=== PATIENT | female | born 2005 | race Hispanic/Latino ===

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

== ENCOUNTER 2025-02-01 12:28 | Emergency (ER) | payer OTHER ==
--- OUTSIDE RECORDS SUMMARY | 2025-02-01 12:38 | XMS REPORT | Continuity of Care Document ---
Author Name Unknown Address [address] [facility] [address] [place] [address] Organization [facility] [place] Address [address] [facility] [address] [place] [address] Care Team Providers Care Trap Operator Name Role Phone MARYURIMARCIN Naila Primary Care Physician Denia vailable Christopher Ibarra Attending Clinician [phone] CHRISTOPHER HUGHES Attending Clinician Unavailable CHRISTOPHER HUGHES Attending Clinician Unavailable EHSAN LIRA Attending Clinician Unavailable Ehsan Díaz Attending Clinician [phone] YOLANDA YATES Attending Clinician Unavailab EDDIE Moncada Attending Clinician Unavailable Eddie Velazquez MD Attending Clinician [phone] Sherman Penn Attending Clinician [phone] SHERMAN MYERS Attending Clinician Unavailable ADRIAN MANCIA Attending Clinician Unavailable EHSAN LIRA Admitting Clinician Unavailable YOLANDA YATES Admitting Clinician Unavailab EDDIE Moncada Admitting Clinician Unavailable Payers Payer Name Policy Type Policy Number Effective Date Expirati on Date Source [employer] D [id number] 2019 00:00:00 Problems Condition Name Condition Details Condition Category Status Onset Date Resolution Date Last Treatment Date Treating Clinician Comments Source Hand sprain, right, initial encounter Hand sprain, right, initial encounter Disease Active 05-23 00:00: 00 [facility] Cellulitis of right hand Cellulitis of right hand Disease Active 05-23 00:00: 00 [facility] Abrasion of right hand, initial encounter Abrasion of right hand, initial encounter Disease Active 05-23 00:00: 00 [facility] Left wrist pain Left wrist pain Disease Active 01-12 00:00: 00 [facility] Allergies, Adverse Reactions, Alerts Allergy Name Allergy Type Status Severity Reaction(s) Onset Date Inactive Date Treating Clinician Comments Source NO KNOWN ALLERGIE S Drug Class Active [facility] Social History Social Habit Start Date Stop Date Quantity Comments Source [facility] function 2024-05-24 00:00:00 2024-05-24 00:00:00 [facility] Alcoholic beverage intake 2024-05-24 00:00:00 2024-05-24 00:00:00 0 /d [facility] Alcohol intake 2023-12-03 00:00:00 2023-12-03 00:00:00 0 /d [facility] Exposure to SARS-CoV-2 (event) 2022-10-03 00:00:00 2022-10-13 15:50:00 Not sure [facility] Sex assigned at 2005 00:00:00 2005 00:00:00 [facility] Smoking Status Start Date Stop Date Source Never smoked tobacco [facility] Medications Ordered Medication Name Filled Medication Name Start Date Stop Date Current Medication? Ordering Clinician Indication Dosage Frequency Signature (SIG) Comments Components Source NaCl 0.9% (NS) bolus infusion 1,000 mL 2023-11 16:30: 00 09-18 17:50 :00 No 1000mL at 999 mL/hr, 1,000 mL, IV Infusion, ONCE, 1 dose, On 09/18/24 at 1030, SALLIE [facility] haloperidol lactate (HALDOL) injection 2.5 mg 2023-11 16:30: 00 09-18 16:50 :00 No 2.5mg 2.5 mg, Slow IV Push, ONCE, 1 dose, On 09/18/24 at 1030, [facility] proMETHazin e 25 mg suppository 2023-11 00:00: 00 Yes [id number] 25mg Insert 1 Suppositor y into rectum every 6 (six) hours as needed for Nausea and Vomiting (N/V). [facility] iopamidol (ISOVUE 370-500 mL) injection 60 mL 2023-11 08:00: 00 09-17 08:00 :00 No [id number] 60mL 60 mL, Intravenou s, ONCE, 1 dose, On 09/17/24 at 0200, Routine [facility] dicyclomine (BENTYL) injection 20 mg 2023-11 05:00: 00 09-17 03:53 :00 No 20mg 20 mg, Intramuscu lar, ONCE, 1 dose, On 09/16/24 at 2300, [facility] famotidine (PEPCID (PF)) injection 20 mg 2023-11 04:00: 00 09-17 03:53 :00 No 20mg 20 mg, Slow IV Push, ONCE, 1 dose, On 09/16/24 at 2200, [facility] metoclopram joao HCl (REGLAN) injection 10 mg 2023-11 04:00: 00 09-17 03:53 :00 No 10mg 10 mg, Slow IV Push, ONCE, 1 dose, On 09/16/24 at 2200, [facility] ketorolac (TORADOL) injection 15 mg 2023-11 04:00: 00 09-17 03:53 :00 No 15mg 15 mg, Slow IV Push, ONCE, 1 dose, On 09/16/24 at 2200, [facility] ondansetron 4 mg disintegrat ing tablet 2023-11 00:00: 00 Yes [id number] 4mg Take 1 tablet by mouth every 8 (eight) hours as needed for Nausea and Vomiting (N/V). [facility] dicyclomine 20 mg tablet 2023-11 1-10 00:00: 00 Yes [id number] 20mg Take 1 tablet by mouth 4 (four) times daily as needed for Abdominal pain. [facility] trazodone 50 mg tablet 2023-11 0-13 00:00: 00 Yes 1mg Ye Mcneil Nexplanon 68 mg subdermal implant 2023-11 0- 00:00: 00 Yes 1mg Ye Mcneil buspirone 5 mg tablet 918 00:00: 00 Yes 1mg Ye Mcneil Vraylar 4.5 mg capsule 18 00:00: 00 Yes 1mg Ye Mcneil trazodone 50 mg tablet 8 00:00: 00 Yes 1mg Ye Mcneil buspirone 5 mg tablet 8- 00:00: 00 Yes 1mg Ye Mcneil Vraylar 4.5 mg capsule 8 00:00: 00 Yes 1mg Ye Mcneil cefTRIAXone (ROCEPHIN) 350 mg/mL in Lidocaine 1 % injection 1,000 mg 05-24 01:30: 00 05-24 01:30 :00 No 1000mg 1,000 mg, Intramuscu lar, ONCE, 1 dose, On Wed05/23/24 at 2030, SALLIE, Reason for Anti-Infec tive: Documented Infection, Documented Infection Site: Skin / Soft Tissue, Duration of Therapy: Once (ED) [facility] ibuprofen (IBU) tablet 400 mg 05-23 23:00: 00 05-23 23:03 :00 No 400mg 400 mg, Oral, ONCE, 1 dose, On Wed05/23/24 at 1800, SALLIE [facility] amoxicillin -clavulanat e 875-125 mg per tablet 05-23 00:00: 00 06-03 04:59 :00 No [id number] 1{tbl} Take 1 tablet by mouth every 12 (twelve) hours for 10 days. [facility] cephALEXin 500 mg capsule 7-16 00:00: 00 05-23 00:00 :00 No [id number] 500mg Take 1 capsule by mouth 4 (four) times daily. [facility] buspirone 5 mg tablet 6-05 00:00: 00 Yes 1mg Ye Mcneil Vraylar 4.5 mg capsule 6-05 00:00: 00 Yes 1mg Ye Mcneil Vraylar 3 mg capsule 5-08 00:00: 00 Yes mg Ye Mcneil Vraylar 3 mg capsule 3-18 00:00: 00 Yes mg Ye Mcneil iopamidol (ISOVUE 370-500 mL) injection 70 mL 12-03 16:30: 00 12-03 16:30 :00 No [id number] 70mL 70 mL, Intravenou s, ONCE, 1 dose, On Wed12/03/23 at 1030, Routine [facility] haloperidol lactate (HALDOL) injection 2.5 mg 12-03 15:00: 00 12-03 15:09 :00 No 2.5mg 2.5 mg, Intravenou s, ONCE, 1 dose, On Wed12/03/23 at 0900, STAT [facility] morpHINE (2 mg/mL) injection 2 mg 12-03 15:00: 00 12-03 15:09 :00 No 2mg 2 mg, Slow IV Push, ONCE, 1 dose, On Wed12/03/23 at 0900, STAT [facility] proCHLORper azine (COMPAZINE) 10 mg in NaCl 0.9% (NS) piggyback 12-03 14:30: 00 12-03 14:53 :00 No 10mg 10 mg, IV Piggyback, at 100 mL/hr Administer over 30 Minutes, ONCE, 1 dose, On Wed12/03/23 at 0830, SALLIE [facility] ketorolac (TORADOL) injection 15 mg 12-03 14:30: 00 12-03 13:38 :00 No 15mg 15 mg, Slow IV Push, ONCE, 1 dose, On Wed12/03/23 at 0830, [facility] ondansetron (ZOFRAN (PF)) injection 4 mg 12-03 14:30: 00 12-03 13:38 :00 No 4mg 4 mg, Slow IV Push, ONCE, 1 dose, On Wed12/03/23 at 0830, [facility] NaCl 0.9% (NS) bolus infusion 1,000 mL 12-03 14:15: 00 12-03 14:53 :00 No 1000mL at 999 mL/hr, 1,000 mL, IV Infusion, ONCE, 1 dose, On Wed12/03/23 at 0815, [facility] ondansetron 4 mg disintegrat ing tablet 12-03 00:00: 00 Yes [id number] 4mg Take 1 tablet by mouth every 8 (eight) hours as needed for Nausea and Vomiting (N/V). [facility] DISSOLVE 1 TABLET BY MOUTH EVERY [...] TAKE 1 CAPSULE BY MOUTH ONCE DAILY 30 00:00: 00 03-21 00:00 :00 No 15 Ye Mcneil TAKE 1 CAPSULE BY MOUTH ONCE DAILY 18 00:00: 00 03-21 00:00 :00 No 15 Ye Mcneil TAKE 1 TABLET AT BEDTIME. 18 00:00: 00 03-21 00:00 :00 No 50 Ye Mcneil TRAZODONE 100MG 2021-11 00:00: 00 Yes 100 Ye Mcneil TAKE 1 TABLET AT BEDTIME. 2021-11 00:00: 00 03-21 00:00 :00 No 5 Ye Mcneil TAKE 1 TABLET BY MOUTH DAILY 2021-11 00:00: 00 03-21 00:00 :00 No 20 Ye Mcneil TRAZODONE 150MG TAB 2021-11 00:00: 00 Yes Ye Mcneil DEPO-CAR SANDER A CONTRACEPTI V 150MG/ML SYN 2021-11 00:00: [...] Unknown 2021-11 00:00: 00 Yes Ye Mcneil AZITHROMYCI N 250MG TAB 2021-11 00:00: 00 Yes Ye Mcneil ESCITALOPRA M OXALATE 10MG TAB 2021-11 00:00: 00 Yes Ye Mcneil ONDANSETRON ODT 8MG ODT 2021-11 00:00: 00 Yes Ye Mcneil Dose Unknown 2021-11 00:00: 00 Yes Ye Mcneil TAKE 1 TABLET BY MOUTH TWICE A DAY 2021-11 00:00: 00 Yes Ye Mcneil Dose Unknown 2021-11 00:00: 00 Yes Ye Mcneil Dose Unknown 2021-11 00:00: 00 Yes Ye Mcneil TAKE 2 TABLETS AT BEDTIME. 2021-11 00:00: 00 03-21 00:00 :00 No Ye Mcneil ESCITALOPRA M 10MG 2021-11 2- 00:00: 00 Yes [id number] Ye Mcneil LORazepam (ATIVAN) tablet 2 mg 2021-11 23:15: 00 10-13 23:11 :00 No 2mg 2 mg, Oral, ONCE, 1 dose, On Wed10/13/22 at 1715, SALLIE [facility] TAKE 1 CAPSULE BY MOUTH EVERYDAY AT BEDTIME 2021-11 00:00: 00 Yes Ye Mcneil TAKE 1 TABLET BY MOUTH EVERYDAY AT BEDTIME 2021-11 00:00: 00 Yes 5 Ye Mcneil ESCITALOPRA M 10MG TAB 2021-11 1-30 00:00: 00 Yes Ye Mcneil ESCITALOPRA M OXALATE 5MG TAB 0 - 00:00: 00 Yes Ye Mcneil TRAZODONE HYDROCHLORI DE 150MG TAB 0 9-20 00:00: 00 Yes Ye Mcneil TRAZODONE HYDROCHLORI DE 150MG 2021-0 9- 00:00: 00 Yes [id number] Ye Mcneil &lt 2-0 8-12 00:00: 00 Yes 150 Ye Mcneil &lt 2-0 8-12 00:00: 00 Yes 5 Ye Mcneil &lt 2-0 8-12 00:00: 00 No 150 &lt 2022-0 8-12 00:00: 00 No 5 TAKE 1 TABLET AT BEDTIME. 0 - 00:00: 00 Yes 150 Ye Mcneil TAKE 1 TABLET BY MOUTH TWICE A DAY 0 - 00:00: 00 Yes 20 Ye Mcneil TAKE 6 TABLETS ON DAY 1 DIRECTED ON PACKAGE AND DECREASE BY 1 TAB EACH DAY FOR A TOTAL OF 6 DAYS 2021-0 - 00:00: 00 Yes 4 Ye Mcneil &lt 2022-0 8- 00:00: 00 Yes 50 Ye Mcneil &lt 2022-0 8- 00:00: 00 Yes 150 Ye Mcneil TAKE 1 TABLET AT BEDTIME. 2021-0 8- 00:00: 00 No 150 TAKE 1 TABLET BY MOUTH TWICE A DAY 2021-0 8- 00:00: 00 No 20 TAKE 6 TABLETS ON DAY 1 DIRECTED ON PACKAGE AND DECREASE BY 1 TAB EACH DAY FOR A TOTAL OF 6 DAYS 0 8- 00:00: 00 No 4 &lt 2022-0 8- 00:00: 00 No 50 &lt 2022-0 8- 00:00: 00 No 150 TAKE 1 TABLET AT BEDTIME. 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 2022-0 7- 00:00: 00 Yes 10 Ye F Tarun &lt 2022-0 7- 00:00: 00 Yes 50 Ye Mcneil TAKE 1 AND 1/2 TABLETS DAILY. 2021-0 05-29 00:00: 00 No 10 &lt 2-0 05-29 00:00: 00 No 50 TAKE 1 AND 1/2 TABLETS DAILY. 2021-0 05-29 00:00: 00 No 10 &lt 2-0 05-29 00:00: 00 No 50 escitalopra m 10 mg tablet 2021-0 05-04 00:00: 00 Yes 1mg Ye Mcneil Dose Unknown 2021-0 05-04 00:00: 00 Yes Ye Mcneil escitalopra [...] 04-02 00:00: 00 Yes 1mg Ye Mcneil trazodone 150 mg tablet 2021-0 04-02 00:00: 00 Yes 1mg Ye Mcneil Dose Unknown 0 04-02 00:00: 00 Yes Ye Mcneil escitalopra [...] No 1mg trazodone 150 mg tablet 2021-0 5-26 00:00: 00 No 1mg Dose Unknown 2021-0 04-02 00:00: 00 No Dose Unknown 2021-0 -17 00:00: 00 Yes Ye Mcneil Dose Unknown 2021-0 -17 00:00: 00 Yes Ye Mcneil naproxen 500 mg tablet 2021-0 5-17 00:00: 00 No 1mg ondansetron HCl 4 mg tablet 2-0 5-17 00:00: 00 No 1mg naproxen 500 mg tablet 2-0 517 00:00: 00 No 1mg ondansetron HCl 4 mg tablet 2021-0 17 00:00: 00 No 1mg naproxen 500 mg tablet 2021-0 17 00:00: 00 No 1mg ondansetron HCl 4 mg tablet 2021-0 03-24 00:00: 00 No 1mg escitalopra m 10 mg tablet 2-0 - 00:00: 00 Yes 1mg Ye Mcneil trazodone 150 mg tablet 2-0 4-29 00:00: 00 Yes 1mg Ye Mcneil escitalopra m 10 mg tablet 2021-0 -29 00:00: 00 No 1mg trazodone 150 mg tablet 2-0 -29 00:00: 00 No 1mg escitalopra m 10 mg tablet 2021-0 -29 00:00: 00 No 1mg trazodone 150 mg tablet 2-0 4-29 00:00: 00 No 1mg escitalopra m 10 mg tablet 2-0 4-29 00:00: 00 No 1mg trazodone 150 mg tablet 2-0 4-29 00:00: 00 No 1mg [employer] Engineer a 150 mg/mL intramuscul ar syringe 2-0 4-18 00:00: 00 Yes 1mg/mL Ye Mcneil [employer] Development Engineer a 150 mg/mL intramuscul ar syringe 2-0 4-18 00:00: 00 No 1mg/mL [employer] Development Engineer a 150 mg/mL intramuscul ar syringe 2-0 4-18 00:00: 00 No 1mg/mL [employer] Development Engineer a 150 mg/mL intramuscul ar syringe 2022-0 4-18 00:00: 00 No 1mg/mL escitalopra m 5 mg tablet 2022-0 4-04 00:00: 00 Yes 1mg Ye Mcneil Dose Unknown 2022-0 4-04 00:00: 00 Yes Ye Mcneil escitalopra m 5 mg tablet 2022-0 4-04 00:00: 00 No 1mg Dose Unknown 2022-0 4-04 00:00: 00 No escitalopra m 5 mg tablet 2022-0 4-04 00:00: 00 No 1mg Dose Unknown 2022-0 4-04 00:00: 00 No escitalopra m 5 mg tablet 2022-0 4-04 00:00: 00 No 1mg Dose Unknown 2022-0 4-04 00:00: 00 No escitalopra m 5 mg tablet 2-0 3-04 00:00: 00 Yes 1mg Ye Mcneil trazodone 150 mg tablet 2-0 3-04 00:00: 00 Yes 1mg Ye Mcneil Dose Unknown 2022-0 3-04 00:00: 00 Yes Ye Mcneil Dose Unknown 2022-0 3-04 00:00: 00 Yes Ye Mcneil escitalopra m 5 mg tablet 2-0 3-04 00:00: 00 No 1mg trazodone 150 mg tablet 2-0 3-04 00:00: 00 No 1mg Dose Unknown 2022-0 3-04 00:00: 00 No Dose Unknown 2022-0 3-04 00:00: 00 No escitalopra m 5 mg tablet 2-0 3-04 00:00: 00 No 1mg trazodone 150 mg tablet 2-0 3-04 00:00: 00 No 1mg Dose Unknown 2-0 3-04 00:00: 00 No Dose Unknown 2022-0 3-04 00:00: 00 No escitalopra m 5 mg tablet 2022-0 3-04 00:00: 00 No 1mg trazodone 150 mg tablet 2022-0 3-04 00:00: 00 No 1mg Dose Unknown 2022-0 3-04 00:00: 00 No Dose Unknown 2022-0 3-04 00:00: 00 No Dose Unknown 2022-0 2-09 00:00: 00 Yes Ye Mcneil Dose Unknown 0 2- 00:00: 00 Yes Ye Mcneil Dose Unknown 0 2- 00:00: 00 No Dose Unknown 0 2- 00:00: 00 No Dose Unknown 0 2- 00:00: 00 No Dose Unknown 0 2- 00:00: 00 No Dose Unknown 0 2- 00:00: 00 No Dose Unknown 0 2- 00:00: 00 No escitalopra m 5 mg tablet 2021-0 1-11 00:00: 00 Yes 1mg Ye Mcneil trazodone 150 mg tablet 2021-0 1-11 00:00: 00 Yes 1mg Ye Mcneil escitalopra m 5 mg tablet 0 1-11 00:00: 00 No 1mg trazodone 150 mg tablet 2021-0 1-11 00:00: 00 No 1mg escitalopra m 5 mg tablet 2021-0 1-11 00:00: 00 No 1mg trazodone 150 mg tablet 2021-0 1-11 00:00: 00 No 1mg escitalopra m 5 mg tablet 2021-0 1-11 00:00: 00 No 1mg trazodone 150 mg tablet 2021-0 1-11 00:00: 00 No 1mg trazodone 150 mg tablet 2020-1 2-20 00:00: 00 Yes 1mg Ye Mcneil trazodone 150 mg tablet 2020-1 2-20 00:00: 00 No 1mg trazodone 150 mg tablet 1 2-20 00:00: 00 No 1mg trazodone 150 mg tablet 1 2-20 00:00: 00 No 1mg escitalopra m 5 mg tablet 1 2-17 00:00: 00 Yes 1mg Ye Mcneil trazodone 100 mg tablet 1 2-17 00:00: 00 Yes 1mg Ye Mcneil trazodone 50 mg tablet 1 2-17 00:00: 00 Yes 1mg Ye Mcneil escitalopra m 5 mg tablet 2020-11 2-17 00:00: 00 No 1mg trazodone 100 mg [...] 00 No 1mg Zoloft 100 mg tablet - 00:00: 00 Yes 15mg Ye Mcneil carbamazepi ne ER 100 mg tablet,exte nded release,12 hr - 00:00: 00 Yes 1mg Ye Mcneil naltrexone 50 mg tablet 11-22 00:00: 00 Yes 1mg Ye Mcneil clonidine HCl 0.2 mg tablet 11-22 00:00: 00 Yes 1mg Ye Mcneil prazosin 1 mg capsule 11-22 00:00: 00 Yes 1mg Ye Mcneil Zoloft 100 mg tablet 11-22 00:00: 00 No 15mg carbamazepi ne ER 100 mg tablet,exte nded release,12 hr 11-22 00:00: 00 No 1mg naltrexone 50 mg [...] 00 No 1mg Zoloft 100 mg tablet - 00:00: 00 No 15mg carbamazepi ne ER [...] tablet,exte nded release,12 hr 2019-11 00:00: 00 Yes 1mg Ye Mcneil naltrexone 50 mg tablet 2019-11 00:00: [...] No 1mg prazosin 1 mg capsule 2019-11 2-18 00:00: 00 No 1mg sertraline 25 mg [...] No 1mg sertraline 50 mg tablet 2019-11 0-15 00:00: 00 No 1mg clonidine HCl 0.2 [...] No 1mg sertraline 50 mg tablet 2019-11 0-15 00:00: 00 No 1mg clonidine HCl 0.2 [...] mg tablet 07-25 00:00: 00 Yes 1mg eY Mcneil naltrexone 50 mg tablet 07-25 00:00: [...] tablet,exte nded release,12 hr 06-06 00:00: 00 Yes 1mg Ye Mcneil sertraline 50 mg tablet 06-06 00:00: 00 Yes 1mg Ye Mcneil clonidine HCl 0.2 mg tablet 06-06 00:00: 00 Yes 1mg Ye Mcneil prazosin 1 mg capsule 06-06 00:00: [...] ER 100 mg tablet,exte nded release, hr 04-03 00:00: 00 No 1mg sertraline [...] tablet 12-29 00:00: 00 Yes 2mg Ye Bee Tarun sertraline 100 mg tablet 12-29 00:00: 00 [...] mg tablet 11-17 00:00: 00 No 15mg benzonatate 100 mg capsule 2017-11 00:00: 00 [...] tablet 2017-11 00:00: 00 Yes 15mg Ye Mcneil sertraline 100 mg tablet 2017-11 00:00: 00 No 15mg sertraline 100 mg tablet 2017-11 00:00: 00 No 15mg sertraline 100 mg tablet 2017-11 00:00: 00 No 15mg sertraline 100 mg tablet 2017-11 00:00: 00 Yes 15mg Ye Mcneil hydroxyzine HCl 25 mg tablet 2017-11 [...] 2017-11 00:00: 00 Yes 1mg Ye Mcneil sertraline 100 mg tablet 2017-11 00:00: 00 Yes 15mg Ye Mcneil hydroxyzine [...] 07-14 00:00: 00 Yes 15mg Ye Mcneil sertraline 100 mg tablet 06-20 [...] 1mg Ye Mcneil sertraline 100 mg tablet 05-19 00:00: [...] 05-19 00:00: 00 Yes mg Ye Mcneil Abilify 5 mg tablet 04-14 00:00: 00 No 1mg Zoloft 50 mg tablet 04-14 00:00: 00 No 1mg Abilify 5 mg tablet 04-14 00:00: 00 No 1mg Zoloft 50 mg tablet 0 04-14 00:00: 00 No 1mg Abilify 5 mg tablet 0 04-14 00:00: 00 No 1mg Zoloft 50 mg tablet 0 04-14 00:00: 00 No 1mg Abilify 5 mg tablet 0 04-14 00:00: 00 Yes 1mg Ye Mcneil Zoloft 50 mg tablet 0 04-14 00:00: 00 Yes 1mg Ye Mcneil Abilify 5 mg tablet 0 04-06 00:00: [...] 1mg Ye Mcneil Abilify 5 mg tablet 12-09 00:00: 00 No 1mg Zoloft 50 mg tablet 2 00:00: 00 No 1mg Abilify 5 mg tablet 2 00:00: 00 No 1mg Zoloft 50 mg tablet 2 00:00: 00 No 1mg Abilify 5 mg tablet 2 00:00: 00 No 1mg Zoloft 50 mg tablet 2 00:00: 00 No 1mg Abilify 5 mg tablet 12-09 00:00: 00 Yes 1mg Ye Mcneil Zoloft 50 mg tablet 12-09 00:00: 00 Yes 1mg Ye Mcneil Zoloft 50 mg tablet 2016-11 [...] 15mg Ye Mcneil Zoloft 25 mg tablet 06-24 00:00: 00 [...] 06-24 00:00: 00 Yes 1mg Ye Mcneil Risperdal 0.5 mg tablet 06-24 00:00: 00 Yes 15mg Ye Bee Mcneil trazodone 50 mg tablet 06-24 00:00: 00 Yes 51mg Ye Bee Mcneil Zoloft 25 mg tablet 05-13 00:00: 00 [...] tablet 05-13 00:00: 00 Yes 51mg Ye Bee Mcneil Risperdal 0.5 mg tablet 05-13 00:00: 00 Yes 15mg Ye Mcneil trazodone 50 mg tablet 05-05 00:00: 00 No 51mg trazodone 50 mg tablet 05-05 00:00: 00 No 51mg trazodone 50 mg tablet 05-05 00:00: 00 No 51mg trazodone 50 mg tablet 05-05 00:00: 00 Yes 51mg Ye Mcneil Zoloft 25 mg tablet 04-15 [...] 04-15 00:00: 00 Yes 15mg Ye Mcneil TRAZODONE HCL (TRAZODONE ORAL) 04-11 00:28: 25 Yes Take by mouth. [facility] azithromyci n 250 mg tablet 04-11 00:00: 00 Yes 250mg Take 1 tablet by mouth daily. [facility] trazodone 50 mg tablet 03-04 00:00: 00 [...] 00 No 1mg Zoloft 25 mg tablet 03-04 00:00: 00 Yes 1mg Ye Mcneil trazodone 50 mg tablet 03-04 00:00: 00 Yes 51mg Ye Mcneil Risperdal 0.5 mg tablet 03-04 00:00: 00 Yes 15mg Ye Mcneil Zoloft [...] 02-04 00:00: 00 Yes 15mg Ye Mcneil traMADOL (ULTRAM) 50 mg tablet 01-05 00:00: 00 Yes 50mg Take 1 tablet by mouth every 6 (six) hours as needed for Pain (scale 4-6). Hayes Barr PA-C / Masood Pablo MD [facility]# [id number] [facility]# [id number] x Lic.# [id number] NPI# [id number] [facility] Zoloft 25 mg tablet 12-23 00:00: 00 No 1mg Risperdal 0.5 mg tablet 12-23 00:00: 00 No 1mg Zoloft 25 mg tablet 12-23 00:00: 00 No 1mg Risperdal 0.5 mg tablet 12-23 00:00: 00 No 1mg Zoloft 25 mg tablet 12-23 00:00: 00 No 1mg Risperdal 0.5 mg tablet 12-23 00:00: 00 No 1mg risperiDONE 0.5 mg tablet 12-23 00:00: 00 Yes TAEK 1 TABLET BY MOUTH ONCE NIGHTLY [facility] SERTraline 25 mg tablet 12-23 00:00: 00 Yes TAKE ONE TABLET BY MOUTH DAILY IN THE MORNING [facility] Zoloft 25 mg tablet 12-23 00:00: 00 Yes 1mg Ye Mcneil Risperdal 0.5 mg tablet 12-23 00:00: 00 Yes 1mg Ye Mcneil Immunizations Ordered Immunization Name Filled Immunization Name [...] Ye Mcneil IPV IPV 2009-10-17 00:00:00 Completed Ye Mcneil varicella varicella 2009-10-17 00:00:00 Completed Ye [...] Completed DTaP-Hep B-IPV DTaP-Hep B-IPV 2008-11-19 00:00:00 Chuck Mcneil Hep A, ped/adol, 2 dose Hep [...] Vital Name Observation Time Observation Value Comments S ource Systolic blood pressure 2024-09-18 19:00:00 99 mm[Hg] [facility] Diastolic blood pressure 2024-09-18 19:00:00 50 mm[Hg] [facility] Body temperature 2024-09-18 19:00:00 36.78 Nayeli [facility] Respiratory rate 2024-09-18 19:00:00 19 /min [facility] Heart rate 2024-09-18 17:00:00 69 /min [facility] Oxygen saturation in Arterial blood by Pulse oximetry 2024-09-18 17:00:00 97 /min [facility] Body height 2024-09-18 15:32:00 157.5 cm [facility] Body weight 2024-09-18 15:32:00 53.978 kg [facility] BMI 2024-09-18 15:32:00 21.77 kg/m2 [facility] Body temperature 2024-09-17 08:06:00 37.06 Nayeli [facility] Systolic blood pressure 2024-09-17 07:22:00 129 mm[Hg] [facility] Diastolic blood pressure 2024-09-17 07:22:00 92 mm[Hg] [facility] Heart rate 2024-09-17 07:22:00 65 /min [facility] Respiratory rate 2024-09-17 07:22:00 16 /min [facility] Oxygen saturation in Arterial blood by Pulse oximetry 2024-09-17 07:22:00 99 /min [facility] Body height 2024-09-17 03:48:00 157.5 cm [facility] Body weight 2024-09-17 03:48:00 53.978 kg [facility] BMI 2024-09-17 03:48:00 21.77 kg/m2 [facility] Systolic blood pressure 2024-05-24 01:17:50 110 mm[Hg] [facility] Diastolic blood pressure 2024-05-24 01:17:50 80 mm[Hg] [facility] Heart rate 2024-05-24 01:17:50 98 /min [facility] Body temperature 2024-05-24 01:17:50 37.22 Nayeli [facility] Respiratory rate 2024-05-24 01:17:50 16 /min [facility] Oxygen saturation in Arterial blood by Pulse oximetry 2024-05-24 01:17:50 98 /min [facility] Body height 2024-05-23 22:30:00 157.5 cm [facility] Body weight 2024-05-23 22:30:00 50.349 kg [facility] BMI 2024-05-23 22:30:00 20.30 kg/m2 [facility] Body mass index (BMI) [Percentile] Per age and sex 2024-05-23 22:30:00 34.22 % [facility] Systolic blood pressure 2023-12-03 15:08:49 123 mm[Hg] [facility] Diastolic blood pressure 2023-12-03 15:08:49 79 mm[Hg] [facility] Heart rate 2023-12-03 15:08:49 71 /min [facility] Respiratory rate 2023-12-03 15:08:49 20 /min [facility] Oxygen saturation in Arterial blood by Pulse oximetry 2023-12-03 15:08:49 99 /min [facility] Body temperature 2023-12-03 12:48:00 37 Nayeli [facility] Body height 2023-12-03 12:48:00 160 cm [facility] Body weight 2023-12-03 12:48:00 49.896 kg [facility] BMI 2023-12-03 12:48:00 19.49 kg/m2 [facility] Body mass index (BMI) [Percentile] Per age and sex 2023-12-03 12:48:00 24.63 % [facility] Systolic blood pressure 2022-10-13 21:54:00 126 mm[Hg] [facility] Diastolic blood pressure 2022-10-13 21:54:00 86 mm[Hg] [facility] Heart rate 2022-10-13 21:54:00 85 [facility] 2022-10-13 21:54:00 36.83 Nayeli [facility] Respiratory rate 2022-10-13 21:54:00 20 /min [facility] Body weight 2022-10-13 21:54:00 48.081 kg [facility] Oxygen saturation in Arterial blood by Pulse oximetry 2022-10-13 21:54:00 99 /min [facility] BP Systolic 2024-08-10 08:43:00 112 mm[Hg] Step hen F [place] BP Diastolic 2024-08-10 08:43:00 62 mm[Hg] Keith phen F Tar[place] Weight Measured 2024-08-10 08:43:00 117.20 pounds Ye F Tarun Height Measured 2024-08-10 08:43:00 62.50 inches Ye F [place] Body Temperature 2024-08-10 08:43:00 97.90 degrees Ye F [place] Heart Rate 2024-08-10 08:43:00 101.00 /min Step hen F [place] Respiratory Rate 2024-08-10 08:43:00 18.00 /min Ye F [place] BP Systolic 2024-08-08 14:27:00 113 mm[Hg] Step hen F [place] BP Diastolic 2024-08-08 14:27:00 76 mm[Hg] Keith phen F [place] Weight Measured 2024-08-08 14:27:00 115.20 pounds Ye F Tarun Height Measured 2024-08-08 14:27:00 62.50 inches Ye F [place] Body Temperature 2024-08-08 14:27:00 98.10 degrees Ye F [place] Heart Rate 2024-08-08 14:27:00 96.00 /min Rosalie en F Tar[facility] Respiratory Rate 2024-08-08 14:27:00 16.00 /min Ye F [place] Weight Measured 2024-06-22 13:11:00 112.00 pounds Ye F [place] Height Measured 2024-06-22 13:11:00 62.50 inches Ye F Tar[place] Body Temperature 2024-06-22 13:11:00 98.20 degrees Ye [...] 2022-06-04 17:46:00 95 mm[Hg] Keith phen F Atrun Weight Measured 2022-06-04 17:46:00 106.80 pounds Ye [...] BP Diastolic 2022-03-24 17:02:00 Keith phen F [place] Weight Measured 2022-03-24 17:02:00 111.40 pounds Ye [...] Weight Measured 2021-09-26 16:56:00 102.60 pounds Ye F Tar[place] Height Measured 2021-09-26 16:56:00 62.50 inches Ye F [place] Body Temperature 2021-09-26 16:56:00 97.00 degrees Ye F [place] Heart Rate 2021-09-26 16:56:00 79.00 /min Rosalie en F Tar[place] Respiratory Rate 2021-09-26 16:56:00 18.00 /min Ye F [place] BP Systolic 2021-09-19 16:01:00 108 mm[Hg] BP [...] / Time Performed Performing Clinicia n Source LIPASE 2024-09-18 15:53:00 Christopher Hughes [facility] COMP. METABOLIC PANEL (87963) 2024-09-18 15:53:00 Christopher Hughes [facility] CBC WITH DIFF 2024-09-18 15:53:00 Christopher Hughes [facility] CT ABDOMEN PELVIS W CONTRAST 2024-09-17 07:08:48 Ehsan Lira [facility] TEST, SERUM 2024-09-17 04:25:00 Bruce Lira se [facility] LIPASE 2024-09-17 04:04:00 [facility] HEPATIC FUNCTION PANEL (39419) (ALB,T.PRO,BILI T,BU/BC,ALT,AST,ALK PHOS) 2024-09-17 04:04:00 Pankaj [facility] BASIC METABOLIC PANEL (NA, K, CL, CO2, GLUCOSE, BUN, CREATININE, CA) 2024-09-17 04:04:00 [facility] ETHANOL 2024-09-17 04:04:00 Ehsan Lira [facility] CBC WITH DIFF 2024-09-17 04:04:00 Ehsan Lira [facility] XR HAND 3+ VW RIGHT 2024-05-23 23:06:00 Roque Yates [facility] CT ABDOMEN PELVIS W CONTRAST 2023-12-03 15:30:42 Eddie Velazquez [facility] POCT TEST 2023-12-03 13:42:00 Eddie Velazquez [facility] LIPASE 2023-12-03 13:37:00 Eddie Velazquez [facility] COMP. METABOLIC PANEL (39970) 2023-12-03 13:37:00 Eddie Velazquez [facility] CBC WITH DIFF 2023-12-03 13:37:00 Eddie Velazquez [facility] URINALYSIS 2023-12-03 13:37:00 Eddie Velazquez [facility] NOTICE OF PRIVACY PRACTICES 2022-10-13 21:42:48 Doctor Unassigned, [place] [facility] CONSENT/REFUSAL FOR DIAGNOSIS AND TREATMENT 2022-10-13 21:42:01 Doctor Unassigned, [place] [facility] Plan of Care Planned Activity Planned Date Details Comments Source Goal Plan of Care Note [code = 96437-1] Goal Plan of Care Note [code = 69339-6] Goal Plan of Care Note [code = 49373-0] Goal Plan of Care Note [code = 72282-5] Goal Plan of Care Note [code = 89841-1] Goal Plan of Care Note [code = 79358-6] Goal Plan of Care Note [code = 87859-0] Goal Plan of Care Note [code = 93595-9] Goal Plan of Care Note [code = 67378-7] Goal Plan of Care Note [code = 41688-6] Goal Plan of Care Note [code = 13730-6] Goal Plan of Care Note [code = 88929-4] Goal Plan of Care Note [code = 68454-9] Goal Plan of Care Note [code = 25404-6] Goal Plan of Care Note [code = 28223-1] Goal Plan of Care Note [code = 49700-4] Goal Plan of Care Note [code = 34912-1] Goal Plan of Care Note [code = 11473-3] Goal Plan of Care Note [code = 94038-7] Goal Plan of Care Note [code = 91164-6] Goal Plan of Care Note [code = 32839-8] Goal Plan of Care Note [code = 67520-9] Goal Plan of Care Note [code = 55470-5] Goal Plan of Care Note [code = 86410-0] Goal Plan of Care Note [code = 11049-0] Goal Plan of Care Note [code = 88100-7] Goal Plan of Care Note [code = 35418-7] Goal Plan of Care Note [code = 06005-2] Goal Plan of Care Note [code = 74535-1] Goal Plan of Care Note [code = 57234-1] Goal Plan of Care Note [code = 66242-8] Goal Plan of Care Note [code = 92564-7] Goal Plan of Care Note [code = 24410-1] Goal Plan of Care Note [code = 53382-4] Goal Plan of Care Note [code = 39009-6] Goal Plan of Care Note [code = 90465-5] Goal Plan of Care Note [code = 58828-5] Goal Plan of Care Note [code = 22249-0] Goal Plan of Care Note [code = 27437-3] Goal Plan of Care Note [code = 03028-5] Goal Plan of Care Note [code = 38858-2] Goal Plan of Care Note [code = 17571-3] Goal Plan of Care Note [code = 89844-3] Goal Plan of Care Note [code = 35318-0] Goal Plan of Care Note [code = 22250-2] Goal Plan of Care Note [code = 00757-4] Goal Plan of Care Note [code = 32696-9] Goal Plan of Care Note [code = 13302-8] Goal Plan of Care Note [code = 04995-4] Goal Plan of Care Note [code = 78024-6] Goal Plan of Care Note [code = 93875-8] Goal Plan of Care Note [code = 45843-9] Goal Plan of Care Note [code = 93628-6] Goal Plan of Care Note [code = 54961-4] Goal Plan of Care Note [code = 56213-1] Goal Plan of Care Note [code = 63053-2] Goal Plan of Care Note [code = 63167-5] Goal Plan of Care Note [code = 67132-6] Goal Plan of Care Note [code = 85919-8] Goal Plan of Care Note [code = 73666-1] Goal Plan of Care Note [code = 70653-1] Goal Plan of Care Note [code = 97088-1] Goal Plan of Care Note [code = 84372-8] Encounters Start Date/Time End Date/Time Encounter Type Admission Type Attending [facility] Facility Care Department Encounter ID Source 2022-01-31 13:37:30 Outpatient [facility] [id number] [facility] 2025-01-25 13:01:02 2025-01-25 13:01:02 Outpatient SFA [facility] 0320 Ye Mcneil 2025-01-17 11:50:18 2025-01-17 11:50:18 Outpatient SFA S[facility] 0312 Ye Mcneil 2024-12-27 16:36:31 2024-12-27 16:36:31 Outpatient SFA S[facility] 0219 Ye Mcneil 2024-12-26 10:53:34 2024-12-26 10:53:34 Outpatient SFA S[facility] 8 Ye Mcneil 2024-12-25 15:22:59 2024-12-25 15:22:59 Outpatient SFA [facility] 7 Ye Mcneil 2024-09-18 09:33:00 2024-09-18 13:04:00 Emergency Christopher Hughes [facility] 1.2.840.114 350.1.13.10 4.2.7.2.686 [id number] [facility] 2024-09-18 09:33:00 2024-09-18 13:04:00 Emergency X CHRISTOPHER HUGHES ERICCA [facility] ERT [id number] [facility] 2024-09-16 21:45:00 2024-09-17 02:14:00 Emergency X EHSAN LIRA [facility] ERT [id number] [facility] 2024-09-16 21:45:00 2024-09-17 02:14:00 Emergency PankajMarilynerick [facility] 1.2.840.114 350.1.13.10 4.2.7.2.686 [id number] [facility] 2024-08-10 08:38:37 2024-08-10 08:38:37 Outpatient SFA [facility] 100 Ye Mcneil 2024-08-08 14:16:16 2024-08-08 14:16:16 Outpatient SFA [facility] 100 Ye Mcneil 2024-08-08 00:00:00 2024-08-08 00:00:00 Outpatient Visit SFA [id number] Ye Mcneil 2024-07-26 14:08:46 2024-07-26 14:08:46 Outpatient SFA [facility] 917 Ye Mcneil 2024-07-06 13:08:32 2024-07-06 13:08:32 Outpatient SFA [facility] 0829 Ye Mcneil 2024-07-06 00:00:00 2024-07-06 00:00:00 Outpatient Visit [facility] [id number] Ye Mcneil 2024-06-22 13:05:40 2024-06-22 13:05:40 Outpatient SFA [facility] 0815 Ye Mcneil 2024-06-22 00:00:00 2024-06-22 00:00:00 Outpatient Visit [facility] [id number] Ye Mcneil 2024-05-23 17:33:00 2024-05-23 20:19:00 Emergency X ADEANGELA, ROQUESTEPHENIL [facility] ERT [id number] [facility] 2024-05-23 17:33:00 2024-05-23 20:19:00 Emergency Aderibilatashae, Roquebril [facility] 1.2.840.114 350.1.13.10 4.2.7.2.686 [id number] [facility] 2024-04-19 15:04:55 2024-04-19 15:04:55 Outpatient SFA [facility] 12 Ye Mcneil 2023-12-03 06:49:00 2023-12-03 10:53:00 Emergency X CAROLINE, EDDIE [facility] ERT [id number] [facility] 2023-12-03 06:49:00 2023-12-03 10:53:00 Emergency CarolineRishiEddie E [facility] 1.2.840.114 350.1.13.10 4.2.7.2.686 [id number] [facility] 2023-07-11 14:12:02 2023-07-11 14:12:02 Outpatient SFA [facility] [id number] Ye Mcneil 2023-07-07 13:37:43 2023-07-07 13:37:43 Outpatient SFA [facility] 0830 Ye Mcneil 2023-06-25 14:04:54 2023-06-25 14:04:54 Outpatient SFA [facility] 0818 Ye Mcneil 2022-10-13 15:56:00 2022-10-13 18:33:00 Emergency Sherman Myers S [facility] 1.2.840.114 350.1.13.10 4.2.7.2.686 [id number] [facility] 2022-10-13 15:56:00 2022-10-13 18:33:00 Emergency X SHERMAN MYERS [facility] ERT [id number] [facility] 2022-09-01 13:24:30 2022-09-01 13:24:30 Outpatient SFA [facility] 1025 Ye Mcneil 2022-06-16 00:00:00 2022-06-16 00:00:00 Outpatient Visit [id number] 2022-06-04 00:00:00 2022-06-04 00:00:00 Outpatient Visit [id number] 2022-05-28 00:00:00 2022-05-28 00:00:00 Outpatient Visit [id number] 2022-05-01 08:00:00 2022-05-01 08:00:00 Outpatient ADRIAN URENA [facility] [id number] [facility] Results Test Description Test Time Test Comments Results Result Co mments Source [facility]67033[facility]2024-09-18 16:39:32* Test Item Value Reference Range Interpretation Comme nts NA (test code = 7763174960) 139 mmol/L 135-145 K (test code = 8682612216) 3.5 mmol/L 3.5-5.0 CL (test code = 0867309368) 106 mmol/L 98-108 CO2 TOTAL (test code = 0859588805) 23 mmol/L 23-31 AGAP (test code = 7594718641) 10 2-16 BUN (test code = 5679774560) 13 mg/dL 7-23 GLUCOSE (test code = 0564864497) 125 mg/dL 70-110 H CREATININE (test code = 2160-0) 0.80 mg/dL 0.50-1.04 TOTAL BILI (test code = 2537457176) 0.6 mg/dL 0.1-1.1 CALCIUM (test code = 2802400510) 9.3 mg/dL 8.6-10.6 T PROTEIN (test code = 0047174320) 7.7 g/dL 6.3-8.2 ALBUMIN (test code = 1935494258) 4.6 g/dL 3.5-5.0 ALK PHOS (test code = 8908174009) 97 U/L 34-122 ALTv (test code = 1742-6) 20 U/L 5-35 AST(SGOT) (test code = 1445219817) 18 U/L 13-40 eGFR (test code = 11098-5) 109.0 mL/min/1.73m2 CKD-EPI eGFR (2020). Assuming creatinine has been stable day-to-day for at least three months, the eGFR indicates Category G1 (>= 90 mL/min/1.73 m2) Lab Interpretation (test code = 66589-9) [facility]normal [facility] 16:39:11* Test Item Value Reference Range Interpretation Comme nts LIPASE (test code = 4917955256) 194 U/L 0-220 Lab Interpretation (test cod e = 87559-6) Normal [facility] [id number] 07:49:08ABDOMEN AND PELVIS CT WITH INTRAVENOUS CONTRAST. CLINICAL INDICATIONS: ? Abdominal abscess/infection suspected TECHNIQUE: ?Axial computed tomographic images of the abdomen and pelviswere performed after injection of intravenous contrast. Radiation dosereductions techniques were employed in accordance with ALARA principles. COMPARISON: ?CT abdomen and pelvis dated 12/03/2023 FINDINGS: ? Visualized lung bases are clear. Gallbladder is present. No focal liver lesions are seen. The spleen, pancreas,and adrenal glands are unremarkable in appearance. The kidneys enhance symmetrically. There is no hydronephrosis. No calcifications in the bladder. The uterus is present. 2.1 cm cyst in theright adnexa. No free fluid or free air. No dilated bowel loops to suggest obstruction.No evidence of acute diverticulitis. No evidence of acute appendicitis. Visualized aorta is normal in course and caliber. No pelvic or abdominaladenopathy by CT criteria. Visualized bones showed no suspicious lytic or blastic bone lesions. Thereare degenerative changes in the spine and pelvis. [facility] WITH [id number] 05:22:25* Test Item Value Reference Range Interpretation Comme nts WBC (test code = 6690-2) 17.82 4.30-11.10 H RBC (test code = 789-8) 4.46 3.93-5.25 HGB (test code = 718-7) 14.3 g/dL 11.6-15.0 HCT (test code = 4544-3) 39.8 % 35.7-45.2 MCV (test code = 787-2) 89.2 fL 80.6-95.5 MCH (test code = 785-6) 32.1 pg 25.9-32.8 MCHC (test code = 786-4) 35.9 g/dL 31.6-35.1 H RDW-SD (test code = 55352-2) 42.4 fL 39.0-49.9 RDW-CV (test code = 788-0) 13.0 % 12.0-15.5 PLT (test code = 777-3) 286 166-358 MPV (test code = 19339-1) 10.8 fL 9.5-12.9 NRBC/100 WBC (test code = 4832387253) 0.0 0.0-10.0 NRBC x10^3 (test code = 9224495083) See_Comment [Automated message] The system which generated this result transmitted reference range: 10*3/?L. The reference range was not used to interpret this result as normal/abnormal. GRAN MAT (NEUT) % (test code = 770-8) 86.7 % IMM GRAN % (test code = 7770677373) 0.70 % LYMPH % (test code = 736-9) 9.6 % MONO % (test code = 5905-5) 2.6 % EOS % (test code = 713-8) 0.1 % BASO % (test code = 706-2) 0.3 % GRAN MAT x10^3(ANC) (test code = 1738772625) 15.45 10*3/uL 1.88-7.09 H IMM GRAN x10^3 (test code = 8104458819) 0.13 10*3/uL 0.00-0.06 H LYMPH x10^3 (test code = 731-0) 1.71 10*3/uL 1.32-3.29 MONO x10^3 (test code = 742-7) 0.46 10*3/uL 0.33-0.92 EOS x10^3 (test code = 711-2) 0.03-0.39 L BASO x10^3 (test code = 704-7) 0.05 10*3/uL 0.01-0.07 Lab Interpretation (test code = 92107-6) Abnormal [facility] 05:09:44 ALCOHOL<10mg/dL09/16/2024 11:09 PM [facility]<10 Pmacpavx86-867 Toxic>100 Depression of SENIOR PROJECT ENGINEER>400 Fatalities ReportedUnB[facility]way[facility]I METABOLIC PANEL (NA, K, CL, CO2, GLUCOSE, BUN, CREATININE, CA)2024-09-17 05:05:58* Test Item Value Reference Range Interpretation Comme nts NA (test code = 6712263371) 140 mmol/L 135-145 K (test code = 6671192118) 3.5 mmol/L 3.5-5.0 CL (test code = 1129725025) 108 mmol/L 98-108 CO2 TOTAL (test code = 0573760773) 21 mmol/L 23-31 L AGAP (test code = 2833518040) 11 2-16 BUN (test code = 1091131758) 13 mg/dL 7-23 GLUCOSE (test code = 2243167246) 126 mg/dL 70-110 H CREATININE (test code = 2160-0) 0.56 mg/dL 0.50-1.04 CALCIUM (test code = 1040204197) 9.5 mg/dL 8.6-10.6 eGFR (test code = 97439-9) 135.0 mL/min/1.73m2 CKD-EPI eGFR (2020). Assuming creatinine has been stable day-to-day for at least three months, the eGFR indicates Category G1 (>= 90 mL/min/1.73 m2) Lab Interpretation (test code = 94204-0) Abnormal [facility] (10431) (ALB,T.PRO,BILI T,BU/BC,ALT,AST,ALK PHOS)2024-09-17 05:05:58* Test Item Value Reference Range Interpretation Comme nts TOTAL BILI (test code = 1065043960) 0.5 mg/dL 0.1-1.1 BILI UNCON (test code = 6491620627) 0.5 mg/dL 0.1-1.1 BILI CONJ (test code = 6843044991) 0.0 mg/dL 0.0-0.3 T PROTEIN (test code = 3862083903) 7.7 g/dL 6.3-8.2 ALBUMIN (test code = 0485598996) 4.8 g/dL 3.5-5.0 ALK PHOS (test code = 3284613892) 105 U/L 34-122 ALTv (test code = 1742-6) 18 U/L 5-35 AST(SGOT) (test code = 7727977957) 15 U/L 13-40 Lab Interpretation (test cod e = 68532-9) Normal [facility] 05:05:58* Test Item Value Reference Range Interpretation Comme nts LIPASE (test code = 7226985839) 39 U/L 0-220 Lab Interpretation (test cod e = 18410-0) Normal [facility] [id number] 03:41:55* Test Item Value Reference Range Interpretation Comme nts HEMOGLOBIN A1c (test code = 89831) 5.2 % 4.2-5.6 LIPID [id number] 03:01:24* Test Item Value Reference Range Interpretation Comme nts CHOLESTEROL (test code = 2210) 133 MG/DL <200 TRIGLYCERIDES (test code = 2232) 84 MG/DL <150 HDL CHOLESTEROL (test code = 2220) 55 MG/DL >39 CALC LDL CHOL (test code = 7) 62 MG/DL <100 NOTE: CALCULATED LDL IS BASED ON CATIE-KENNEDY METHOD WHICHINCLUDES ADJUSTABLE TRIGLYCERIDE:VLDL CHOLESTEROL RATIO.THIS FACTOR VARIES BY MEASURED TRIGLYCERIDE AND NON-HDLCHOLESTEROL CONCENTRATIONS WITH INCREASED CALCULATED LDL SEENIN HIGHER TRIGLYCERIDE OR LOWER NON-HDL SPECIMENS. FOR MOREINFORMATION, SEE CLIENT ANNOUNCEMENT AT [email or web address] RISK RATIO LDL/HDL (test code = 223) 1.13 RATIO <3.22 COMPREHENSIVE METABOLIC [id number] 03:01:24* Test Item Value Reference Range Interpretation Comme nts GLUCOSE (test code = 7) 96 MG/DL 70-99 BUN (test code = 2207) 11 MG/DL 6-20 CREATININE (test code = 2214) 0.89 MG/DL 0.50-1.10 eGFR (2020 CKD-EPI) (test code = 73038) NO CALC ML/MIN/1.73 >60 NOTE: 2020 CKD-EPI is not validated for pediatric populations. For patients less than 19 years old, consider NKF pediatric eGFR calculator https://www.kidney. org/professionals/k doqi/gfr_calculator Ped CALC BUN/CREAT (test code = 2234) 12 RATIO 6-28 SODIUM (test code = 2230) 144 MEQ/L 133-146 POTASSIUM (test code = 8) 4.3 MEQ/L 3.5-5.4 CHLORIDE (test code = 5) 107 MEQ/L 95-107 CARBON DIOXIDE (test code = 2205) 24 MEQ/L 19-31 CALCIUM (test code = 2208) 9.7 MG/DL 8.5-10.5 PROTEIN, TOTAL (test code = 2228) 7.1 G/DL 6.1-8.3 ALBUMIN (test code = 2201) 4.7 G/DL 3.5-5.2 CALC GLOBULIN (test code = 2240) 2.4 G/DL 2.1-3.7 CALC A/G RATIO (test code = 2234) 2.0 RATIO 1.0-2.6 BILIRUBIN, TOTAL (test code = 7) 0.5 MG/DL <=1.2 ALKALINE PHOSPHATASE (test code = 2203) 106 U/L 45-126 AST (test code = 2218) 8 U/L 9-40 L ALT (test code = 2219) 8 U/L 5-40 TSH, THIRD [id number] 03:00:21* Test Item Value Reference Range Interpretation Comme nts TSH, THIRD GENERATION (test code = 282) 1.090 UIU/ML 0.400-4.100 UNLESS OTHERWISE INDICATED, ALL TESTING PERFORMED AT [facility] [address] [place] [address] [employer] SUPERVISOR: SWATHI KERR M.D. CLIA NUMBER [id number] [facility] [place]. [id number] CBC W/AUTO DIFF WITH [id number] 02:18:02* Test Item Value Reference Range Interpretation [...] 0.00-0.10 ABS NUCLEATED RBCS (test code = 82152) 0.00 K/UL 0.00-0.11 CBC W/AUTO [id number] 00:00:00* Test Item Value Reference Range Interpretation Comme nts WBC (test code = 1001) 6.0 K/UL RBC (test code = 1002) 4.55 M/UL HEMOGLOBIN (test code = 1003) 14.0 G/DL HEMATOCRIT (test code = 1004) 41.6 % MCV (test code = 1005) 91.4 fL MCH (test code = 1006) 30.8 PG MCHC (test code = 1007) 33.7 G/DL RDW (test code = 1038) 13.0 % NEUTROPHILS (test code = 1008) 62.7 % LYMPHOCYTES (test code = 1010) 28.3 % MONOCYTES (test code = 1011) 6.2 % EOSINOPHILS (test code = 1012) 2.3 % BASOPHILS (test code = 1013) 0.3 % IMMATURE GRANULOCYTES (test code = 1036) 0.2 % NUCLEATED RBCS (test code = 1065) 0.0 /100WBC'S PLATELET COUNT (test code = 1015) 220 K/UL ABSOLUTE NEUTROPHILS (test c ode = 1066) 3.76 K/UL ABSOLUTE LYMPHOCYTES (test c ode = 1067) 1.70 K/UL ABSOLUTE MONOCYTES (test cod e = 1068) 0.37 K/UL ABSOLUTE EOSINOPHILS (test c ode = 1040) 0.14 K/UL ABSOLUTE BASOPHILS (test cod e = 1069) 0.02 K/UL ABS IMMATURE GRANULOCYTES (t est code = 1020) 0.01 K/UL ABS NUCLEATED RBCS (test cod e = 51697) 0.00 K/UL Ye McneilHEMOGLOBIN [id number] 00:00:00* Test Item Value Reference Range Interpretation Comme nts HEMOGLOBIN A1c (test code = 46505) 5.2 % Ye McneilLIPID [id number] 00:00:00* Test Item Value Reference Range Interpretation Comme nts CHOLESTEROL (test code = 2210) 133 MG/DL TRIGLYCERIDES (test code = 2232) 84 MG/DL HDL CHOLESTEROL (test code = 2220) 55 MG/DL CALC LDL CHOL (test code = 2237) 62 MG/DL RISK RATIO LDL/HDL (test cod e = 2238) 1.13 RATIO Ye McneilCOMPREHENSIVE METABOLIC [id number] 00:00:00* Test Item Value Reference Range Interpretation Comme nts GLUCOSE (test code = 2217) 96 MG/DL BUN (test code = 2208) 11 MG/DL CREATININE (test code = 2214) 0.89 MG/DL eGFR (2020 CKD-EPI) (test code = 43486) NO CALC ML/MIN/1.73 CALC BUN/CREAT (test code = 2235) 12 RATIO SODIUM (test code = 2231) 144 MEQ/L POTASSIUM (test code = 2228) 4.3 MEQ/L CHLORIDE (test code = 2215) 107 MEQ/L CARBON DIOXIDE (test code = 2206) 24 MEQ/L CALCIUM (test code = 2209) 9.7 MG/DL PROTEIN, TOTAL (test code = 2229) 7.1 G/DL ALBUMIN (test code = 2201) 4.7 G/DL CALC GLOBULIN (test code = 2240) 2.4 G/DL CALC A/G RATIO (test code = 2234) 2.0 RATIO BILIRUBIN, TOTAL (test code = 2207) 0.5 MG/DL ALKALINE PHOSPHATASE (test code = 2204) 106 U/L AST (test code = 2218) 8 U/L ALT (test code = 2219) 8 U/L Ye MckenzieH, THIRD [id number] 00:00:00* Test Item Value Reference Range Interpretation Comme nts TSH, THIRD GENERATION (test code = 2821) 1.090 UIU/ML Ye McneilCBC W/AUTO [id number] 00:00:00* Test Item Value Reference Range Interpretation Comme nts WBC (test code = 1001) 6.0 K/UL RBC (test code = 1002) 4.55 M/UL HEMOGLOBIN (test code = 1003) 14.0 G/DL HEMATOCRIT (test code = 1004) 41.6 % MCV (test code = 1005) 91.4 fL MCH (test code = 1006) 30.8 PG MCHC (test code = 1007) 33.7 G/DL RDW (test code = 1038) 13.0 % NEUTROPHILS (test code = 1008) 62.7 % LYMPHOCYTES (test code = 1010) 28.3 % MONOCYTES (test code = 1011) 6.2 % EOSINOPHILS (test code = 1012) 2.3 % BASOPHILS (test code = 1013) 0.3 % IMMATURE GRANULOCYTES (test code = 1036) 0.2 % NUCLEATED RBCS (test code = 1065) 0.0 /100WBC'S PLATELET COUNT (test code = 1015) 220 K/UL ABSOLUTE NEUTROPHILS (test c ode = 1066) 3.76 K/UL ABSOLUTE LYMPHOCYTES (test c ode = 1067) 1.70 K/UL ABSOLUTE MONOCYTES (test cod e = 1068) 0.37 K/UL ABSOLUTE EOSINOPHILS (test c ode = 1040) 0.14 K/UL ABSOLUTE BASOPHILS (test cod e = 1069) 0.02 K/UL ABS IMMATURE GRANULOCYTES (t est code = 1020) 0.01 K/UL ABS NUCLEATED RBCS (test cod e = 25741) 0.00 K/UL Ye McneilHEMOGLOBIN [id number] 00:00:00* Test Item Value Reference Range Interpretation Comme nts HEMOGLOBIN A1c (test code = 43632) 5.2 % Ye McneilLIPID [id number] 00:00:00* Test Item Value Reference Range Interpretation Comme nts CHOLESTEROL (test code = 2210) 133 MG/DL TRIGLYCERIDES (test code = 2232) 84 MG/DL HDL CHOLESTEROL (test code = 2220) 55 MG/DL CALC LDL CHOL (test code = 2237) 62 MG/DL RISK RATIO LDL/HDL (test cod e = 2238) 1.13 RATIO Ye McneilCOMPREHENSIVE METABOLIC [id number] 00:00:00* Test Item Value Reference Range Interpretation Comme nts GLUCOSE (test code = 2217) 96 MG/DL BUN (test code = 2208) 11 MG/DL CREATININE (test code = 2214) 0.89 MG/DL eGFR (2020 CKD-EPI) (test code = 36953) NO CALC ML/MIN/1.73 CALC BUN/CREAT (test code = 2235) 12 RATIO SODIUM (test code = 2231) 144 MEQ/L POTASSIUM (test code = 2228) 4.3 MEQ/L CHLORIDE (test code = 2215) 107 MEQ/L CARBON DIOXIDE (test code = 2206) 24 MEQ/L CALCIUM (test code = 2209) 9.7 MG/DL PROTEIN, TOTAL (test code = 2229) 7.1 G/DL ALBUMIN (test code = 2201) 4.7 G/DL CALC GLOBULIN (test code = 2240) 2.4 G/DL CALC A/G RATIO (test code = 2234) 2.0 RATIO BILIRUBIN, TOTAL (test code = 2207) 0.5 MG/DL ALKALINE PHOSPHATASE (test code = 2204) 106 U/L AST (test code = 2218) 8 U/L ALT (test code = 2219) 8 U/L Ye McneilTSH, THIRD [id number] 00:00:00* Test Item Value Reference Range Interpretation Comme nts TSH, THIRD GENERATION (test code = 2821) 1.090 UIU/ML Ye McneilXR HAND 3+ VW [id number] 00:17:06Ordering Physician: YOLANDA YATES HISTORY: pain TECHNIQUE: Frontal, lateral and oblique views of the right hand COMPARISON: none FINDINGS: There is no fracture or dislocation. ? There are no erosions. The softtissues are unremarkable.[facility] [id number] 15:43:50CT ABDOMEN PELVIS W CONTRAST CLINICAL INDICATION: 18 years old Female with abdominal pain (. Present sfor Abdominal abscess/infection. COMPARISON: No prior studies available [...] Imaged osseous and soft tissue structures are normal.[facility] WITH [id number] 14:53:05* Test Item Value Reference Range Interpretation [...] 34.7 g/dL 32.0-36.0 RDW-SD (test code = 60233-5) 41.6 fL 38.5-49.0 RDW-CV (test code = 788-0) 12.8 % 11.5-14.0 PLT (test code = 777-3) 258 See_Comment [Automated message] The system which generated this result transmitted reference range: 135 - 361 10*3/?L. The reference range was not used to interpret this result as normal/abnormal. MPV (test code = 78684-5) 10.4 fL 9.4-13.3 NRBC/100 WBC (test code = 4204115471) 0.0 See_Comment [Automated message] The system which generated this result transmitted reference range: 0.0 - 10.0 /100 WBCs. The reference range was not used to interpret this result as normal/abnormal. NRBC x10^3 (test code = 7603613823) See_Comment [Automated message] The system which generated this result transmitted reference range: 10*3/?L. The reference range was not used to interpret this result as normal/abnormal. GRAN MAT (NEUT) % (test code = 770-8) 78.7 % IMM GRAN % (test code = 7629485448) 0.60 % LYMPH % (test code = 736-9) 15.4 % MONO % (test code = 5905-5) 4.8 % EOS % (test code = 713-8) 0.2 % BASO % (test code = 706-2) 0.3 % GRAN MAT x10^3(ANC) (test code = 9343591030) 18.22 10*3/uL 1.50-10.30 H IMM GRAN x10^3 (test code = 2749041643) 0.15 10*3/uL 0.00-0.06 H LYMPH x10^3 (test code = 731-0) 3.56 10*3/uL 0.70-7.40 MONO x10^3 (test code = 742-7) 1.12 10*3/uL 0.00-0.50 H EOS x10^3 (test code = 711-2) 0.05 10*3/uL 0.00-0.40 BASO x10^3 (test code = 704-7) 0.06 10*3/uL 0.00-0.10 Lab Interpretation (test code = 57720-6) Abnormal [facility] (89853)2023-12-03 14:16:40* Test Item Value Reference Range Interpretation Comme nts NA (test code = 5384097464) 140 mmol/L 135-145 K (test code = 1522015985) 3.4 mmol/L 3.5-5.0 L CL (test code = 1231639498) 111 mmol/L 98-108 H CO2 TOTAL (test code = 0204466228) 17 mmol/L 23-31 L AGAP (test code = 7863919370) 12 2-16 BUN (test code = 3664313897) 13 mg/dL 7-23 GLUCOSE (test code = 6691681132) 126 mg/dL 70-110 H CREATININE (test code = 8061059899) 0.57 mg/dL 0.50-1.04 TOTAL BILI (test code = 1607218311) 0.6 mg/dL 0.1-1.1 CALCIUM (test code = 4349561119) 9.4 mg/dL 8.6-10.6 T PROTEIN (test code = 6504090308) 7.2 g/dL 6.3-8.2 ALBUMIN (test code = 7241750981) 4.3 g/dL 3.5-5.0 ALK PHOS (test code = 6115506419) 112 U/L 34-122 ALTv (test code = 1742-6) 16 U/L 5-35 AST(SGOT) (test code = 7910152379) 16 U/L 13-40 eGFR (test code = 98542-4) 135.3 mL/min/1.73m2 CKD-EPI eGFR (2020). Assuming creatinine has been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
[2025-02-01] MEDS ORDERED: ONDANSETRON 4 MG/2 ML VIAL ONE (13:07)
[2025-02-01] MEDS ORDERED: NA CHLORIDE 0.9% 1,000 ML ONE (13:08)
[2025-02-01 13:19] LABS: Absolute Lymphocytes (CBC) 1.8 K/uL (0.7-4.9); Absolute Monocytes 1.1 K/uL (0.1-1.3); Absolute Neutrophil 14.9 K/uL (1.8-8.0); Basophils % 0.1 % (0-1.3); Hematocrit 38.4 % (36.0-45.0); Hemoglobin 13.5 g/dL (12.0-15.0); Lymphocytes % 9.9 % (15.3-44.8); MCH 30.6 pg (27.0-35.0); MCHC 35.2 g/dL (32.0-36.0); MCV 87.2 fL (80-100); MPV 8.7 fL (7.6-11.3); Nucleated Red Blood Cells % 0.1 % (0-0); Platelets 265 thou/uL (152-406); Red Cell Distribution Width 13.5 % (12.1-15.2)
[2025-02-01 13:36] LABS: ALT/SGPT 23 U/L (13-56); Albumin 3.5 g/dL (3.4-5.0); Albumin/Globulin Ratio 0.8 (1.1-1.8); Alkaline Phosphatase 89 U/L (45-117); Anion Gap 13.5 mEq/L (5.0-15.0); BUN Blood Urea Nitrogen 11 mg/dL (7-18); Bicarbonate 21 mEq/L (21-32); Bilirubin Total 0.8 mg/dL (0.2-1.0); Globulin 4.2 g/dL (2.3-3.5); Glomerular Filtration Rate 128 ml/min (=/>90); Glucose Level 121 mg/dL (74-106); Lipase 18 U/L (13-75); Potassium 3.5 mEq/L (3.5-5.1); Protein, Total 7.7 g/dL (6.4-8.2); Sodium Level 138 mEq/L (136-145)
[2025-02-01 13:42] LABS: AST/SGOT < 10 U/L (15-37)
[2025-02-01 13:46] LABS: Influenza A Ag Negative; Influenza B Ag Negative; SARS-CoV-2 Antigen Rapid Res Negative (Negative)
[2025-02-01 14:15] LABS: Specific Gravity 1.024 (1.005-1.030)
[2025-02-01 14:21] LABS: Specific Gravity 1.024 (1.005-1.030); Sqamous Epithelial <5 /HPF (None Seen); Urine Bacteria <20 /HPF (<20); Urine Bilirubin NEGATIVE (Negative); Urine Blood 1+ (Negative); Urine Clarity Clear (Clear); Urine Color Light-Yellow (Yellow); Urine Culture Reflex Order NOT NEEDED; Urine Glucose NEGATIVE (Negative); Urine Ketones 3+ (Negative); Urine Microscopic Reflex YN ORDER UMIC; Urine Mucus Slight /HPF (None Seen); Urine Nitrite NEGATIVE (Negative); Urine Protein 1+ (Negative); Urine Urobilinogen Normal (Normal); Urine WBC <5 /HPF (<5); Urine Yeast (Budding) Trace /HPF (None Seen); Urine pH 6.5 (5.0-7.0)
--- NOTE | 2025-02-01 14:33 | RAD REPORT ---
EXAMINATION: CT ABDOMEN AND PELVIS WITH CONTRAST CLINICAL INDICATION: Abdominal pain TECHNIQUE: CT abdomen and pelvis was performed, after the administration of 100 cc Isovue-300.. Sagit cong and coronal reconstructions were obtained. One or more of the following dose reduction techniques were used: Automated exposure control, adjustment of the mA and kV according to patient si ze, and iterative reconstruction. Unless otherwise specified, incidental findings do not require dedicated imaging follow-up. [id number]. Oral contrast was not given which limits evaluation of bowel and appendix. COMPARISON: .2023 FINDINGS: Liver, spleen, pancreas, adrenals and kidneys appear unremarkable No evidence of diverticulitis. Normal appendix. No adnexal mass : IMPRESSION: No acute abnormality displayed
[2025-02-01] MEDS ORDERED: PROMETHAZINE INJ 25 MG/ML AMP ONE (15:04)
--- NOTE | 2025-02-01 15:43 | ER ---
Nurse's Notes [facility] Name: Christina Lopez Age: 19 yrs Sex: Female : 2005 Arrival Date: 02/01/2025 Time: 12:28 Bed 18 Private MD: Diagnosis: Vomiting, unspecified;Dehydration Presentation: 02/01 12:48 Chief complaint: Patient states: N/V since 3 AM. Coronavirus screen: Client denies ll1 travel out of the [place] in the last 14 days. Ebola Screen: Patient denies travel to an Ebola-affected area in the 21 days before illness onset. Initial Sepsis Screen: Does the patient meet any 2 criteria? No. Patient's initial sepsis screen is negative. Does the patient have a suspected source of infection? No. Patient's initial sepsis screen is negative. Risk Assessment: Do you want to hurt yourself or someone else? Patient reports no desire to harm self or others. Onset of symptoms was February 01, 2025. 12:48 Method Of Arrival: Ambulatory ll1 12:48 Acuity: GELY 3 ll1 Historical: - Allergies: 12:48 No Known Allergies; ll1 - PMHx: 12:48 ADD/ADHD; Anxiety; Major Depressive Disorder; Reoccurring and Severe Psychosis Features;ll1 - Immunization history:: Adult Immunizations up to date. - Infectious Disease History:: Denies. - Social history:: Smoking status: Patient denies any tobacco usage or history of. - Family history:: not pertinent. - Hospitalizations: : No recent hospitalization is reported. Screenin:05 [facility] ED Fall Risk Assessment (Adult) History of falling in the last 3 months, kc6 including since admission No falls in past 3 months (0 pts) Confusion or Disorientation No (0 pts) Intoxicated or Sedated No (0 pts) Impaired Gait No (0 pts) Mobility Assist Device Used No (0 pt) Altered Elimination No (0 pt) Score/Fall Risk Level 0 - 2 = Low Risk Oriented to surroundings, Maintained a safe environment, Educated pt \T\ family on fall prevention, incl call for assistance when getting out of bed. Abuse screen: Denies threats or abuse. Denies injuries from another. Nutritional screening: No deficits noted. Tuberculosis screening: No symptoms or risk factors identified. Assessment: 14:01 General: Appears in no apparent distress. uncomfortable, well groomed, well developed, kc6 Behavior is calm, cooperative, appropriate for age. Pain: Complains of pain in epigastric area and right upper quadrant. Neuro: Level of Consciousness is awake, alert, obeys commands, Oriented to person, place, time, situation, Appropriate for age. Cardiovascular: Capillary refill < 3 seconds. Respiratory: Reports cough that is productive, Airway is patent Trachea midline Respiratory effort is even, unlabored, Respiratory pattern is regular, symmetrical. GI: Abdomen is flat, non-distended, Pt is actively vomiting clear fluid, Bowel sounds present X 4 quads. Abd is soft X 4 quads Abdomen is tender to palpation in epigastric area and right upper quadrant Reports upper abdominal pain, nausea, vomiting, Patient currently denies diarrhea. : No signs and/or symptoms were reported regarding the genitourinary system. EENT: Reports nasal congestion. Derm: No signs and/or symptoms reported regarding the dermatologic system. Skin is intact, is healthy with good turgor, Skin is dry, Skin is pale, Skin temperature is warm. Musculoskeletal: No signs and/or symptoms reported regarding the musculoskeletal system. Circulation, motion, and sensation intact. Range of motion: intact in all extremities. 14:46 Reassessment: Patient appears in no apparent distress at this time. No changes from kc6 previously documented assessment. Patient and/or family updated on plan of care and expected duration. Pain level reassessed. Patient is alert, oriented x 3, equal unlabored respirations, skin warm/dry/pink. 15:40 Reassessment: Patient appears in no apparent distress at this time. No changes from kc6 previously documented assessment. Patient and/or family updated on plan of care and expected duration. Pain level reassessed. Patient is alert, oriented x 3, equal unlabored respirations, skin warm/dry/pink. Patient states feeling better. Patient states symptoms have improved. Vital Signs: 12:48 BP 134 / 92; Pulse 80; Resp 22; Temp 99.3; Pulse Ox 99% ; Weight 54.43 kg; Height 5 ft. ll1 2 in. ; Pain 7/10; 15:51 BP 139 / 71; Pulse 77; Resp 19 S; Temp 97(O); Pulse Ox 96% on R/A; kc6 12:48 Body Mass Index 21.95 (54.43 kg, 157.48 cm) - Percentile 53.7 % ll1 12:48 Pain Scale: Adult ll1 ED Course: 12:30 Patient arrived in ED. mr 12:37 Elias Baez MD is Attending Physician. rn 12:49 Triage completed. ll1 12:49 Arm band placed on Patient placed in an exam room, on a stretcher. ll1 12:52 Bessie Sanchez, FLORESITA is Primary Nurse. kc6 13:04 Patient has correct armband on for positive identification. Bed in low position. Call kc6 light in reach. Side rails up X 1. Pulse ox on. NIBP on. Door closed. Noise minimized. Lights dimmed. Warm blanket given. Pillow given. Verbal reassurance given. 13:04 Initial lab(s) drawn, by me, sent to lab. COVID swab sent to lab. Flu and/or RSV swab kc6 sent to lab. Inserted saline lock: 20 gauge in right forearm, using aseptic technique. Blood collected. Flushed with 10 mL NS. Patient maintains SpO2 saturation greater than 95% on room air. 14:23 CT Abd/Pelvis - IV Contrast Only In Process Unspecified. EDMS 15:51 No provider procedures requiring assistance completed. IV discontinued, intact, kc6 bleeding controlled, No redness/swelling at site. Pressure dressing applied. Administered Medications: 13:13 Drug: Ondansetron IVP 4 mg IVP once; over 2 minutes Route: IVP; Site: right forearm; kc6 13:55 Follow up: Response: No adverse reaction; Nausea is decreased; Vomiting decreased kc6 13:13 Drug: NS 0.9% IV 1000 ml IV at 1 bolus Per protocol; to be given as a bolus over 60 kc6 minutes Route: IV; Rate: 1 bolus; Site: right forearm; 13:55 Follow up: Response: No adverse reaction; IV Status: Completed infusion; IV Intake: kc6 1000ml 15:11 Drug: Promethazine IVP 12.5 mg IVP once Route: IVP; Site: right forearm; kc6 15:36 Follow up: Response: No adverse reaction; Nausea is decreased; Vomiting decreased kc6 Medication: 15:51 VIS not applicable for this client. kc6 Intake: 13:55 IV: 1000ml; Total: 1000ml. kc6 Outcome: 15:42 Discharge ordered by . rn 15:51 Discharged to home ambulatory, with significant other, kc6 15:51 Condition: improved 15:51 Discharge instructions given to patient, Instructed on discharge instructions, follow up and referral plans. medication usage, Demonstrated understanding of instructions, follow-up care, medications, Prescriptions given X 2, 15:51 Patient left the ED. kc6 Signatures: Dispatcher [employer] EDMS Sharron Liz, Reg Reg mr Elias Baez MD MD rn Lewis, Lynsay, RN RN ll1 Bessie Sanchez RN RN kc6 Corrections: (The following items were deleted from the chart) 12:49 12:48 Pulse 80bpm; Resp 22bpm; Pulse Ox 99%; Temp 99.3F; 54.43 kg; Height 5 ft. 2 in.; ll1 BMI: 21.9 (53.7%); Pain 7/10, Adult; ll1
--- NOTE | 2025-02-01 15:43 | EDPHYS ---
Physician Documentation [facility] Name: Christina Lopez Age: 19 yrs Sex: Female : 2005 Arrival Date: 02/01/2025 Time: 12:28 Bed 18 Private MD: ED Physician Elias Baez HPI: 02/01 13:08 This 19 yrs old Female presents to ER via Ambulatory with complaints of rn Vomiting. 13:08 The patient presents to the emergency department with nausea, vomiting, abdominal pain. rn Onset: The symptoms/episode began/occurred yesterday. Possible causes: unknown. The symptoms are aggravated by nothing. The symptoms are alleviated by nothing. Associated signs and symptoms: Pertinent positives: abdominal pain, diarrhea, nausea, vomiting, Pertinent negatives: fever, GI bleeding. Severity of symptoms: At their worst the symptoms were moderate in the emergency department the symptoms are unchanged. The patient has not experienced similar symptoms in the past. The patient has not recently seen a physician. Patient reports nausea/vomiting/diarrhea that began last night, cannot keep anything down. Reports mid and upper abdominal pain. No blood in the stool or emesis. Reports chills but no reported fever.. Historical: - Allergies: 12:48 No Known Allergies; ll1 - PMHx: 12:48 ADD/ADHD; Anxiety; Major Depressive Disorder; Reoccurring and Severe Psychosis Features;ll1 - Immunization history:: Adult Immunizations up to date. - Infectious Disease History:: Denies. - Social history:: Smoking status: Patient denies any tobacco usage or history of. - Family history:: not pertinent. - Hospitalizations: : No recent hospitalization is reported. ROS: 13:08 Constitutional: Negative for fever, chills, and weight loss, Cardiovascular: Negative rn for chest pain, palpitations, and edema, Respiratory: Negative for shortness of breath, cough, wheezing, and pleuritic chest pain, Abdomen/GI: Negative for abdominal pain, nausea, vomiting, diarrhea, and constipation, MS/Extremity: Negative for injury and deformity, Skin: Negative for injury, rash, and discoloration, Neuro: Negative for headache, weakness, numbness, tingling, and seizure, Exam: 13:08 Constitutional: This is a well developed, well nourished patient who is awake, alert, rn and in no acute distress. ENT: Dry mucous membranes Cardiovascular: Regular rate and rhythm. No pulse deficits. Respiratory: Mild tachypnea Abdomen/GI: Soft, mid and epigastric tenderness. No rebound or guarding. No distention MS/ Extremity: Pulses equal, no cyanosis. Neuro: Awake and alert, GCS 15 Vital Signs: 12:48 BP 134 / 92; Pulse 80; Resp 22; Temp 99.3; Pulse Ox 99% ; Weight 54.43 kg; Height 5 ft. ll1 2 in. ; Pain 7/10; 15:51 BP 139 / 71; Pulse 77; Resp 19 S; Temp 97(O); Pulse Ox 96% on R/A; kc6 12:48 Body Mass Index 21.95 (54.43 kg, 157.48 cm) - Percentile 53.7 % ll1 12:48 Pain Scale: Adult ll1 MDM: 12:37 Medical Screening Exam initiated rn 15:41 Differential diagnosis: Nonspecific abd pain, gastritis, pancreatitis, appendicitis, rn diverticulitis, viral gastroenteritis, gastroenteritis. Data reviewed: vital signs, nurses notes, lab test result(s), radiologic studies, CT scan, and as a result, I will discharge patient. Counseling: I had a detailed discussion with the patient and/or guardian regarding the historical points, exam findings, and any diagnostic results supporting the discharge/admit diagnosis, lab results, radiology results, the need for outpatient follow up, to return to the emergency department if symptoms worsen or persist or if there are any questions or concerns that arise at home. Response to treatment: the patient's symptoms have markedly improved after treatment, and as a result, I will discharge patient. Special discussion: Based on the patient's Hx, exam, and Dx evaluation, there is no indication for emergent surgery or inpatient Tx. It is understood by the patient/guardian that if the Sx's persist or worsen they need to return immediately for re-evaluation. I discussed with the patient/guardian in detail that at this point there is no indication for admission to the hospital. It is understood, however, that if the symptoms persist or worsen the patient needs to return immediately for re-evaluation. 02/01 12:58 Order name: CBC with Diff; Complete Time: 14: rn 02/01 12:58 Order name: CMP; Complete Time: 14: rn 02/01 12:58 Order name: Lipase; Complete Time: 14:26 rn 02/01 12:58 Order name: Test, Urine; Complete Time: 14:26 rn 02/01 12:58 Order name: Urinalysis w/ reflexes; Complete Time: 14:26 rn 02/01 12:58 Order name: COVID-19 Ag + Flu A+B Ag; Complete Time: 14:26 rn 02/01 12:58 Order name: CT Abd/Pelvis - IV Contrast Only; Complete Time: 14:52 rn 02/01 12:58 Order name: IV Saline Lock; Complete Time: 13:04 rn 02/01 12:58 Order name: Labs collected and sent; Complete Time: 13:04 rn Administered Medications: 13:13 Drug: Ondansetron IVP 4 mg IVP once; over 2 minutes Route: IVP; Site: right forearm; kc6 13:55 Follow up: Response: No adverse reaction; Nausea is decreased; Vomiting decreased kc6 13:13 Drug: NS 0.9% IV 1000 ml IV at 1 bolus Per protocol; to be given as a bolus over 60 kc6 minutes Route: IV; Rate: 1 bolus; Site: right forearm; 13:55 Follow up: Response: No adverse reaction; IV Status: Completed infusion; IV Intake: kc6 1000ml 15:11 Drug: Promethazine IVP 12.5 mg IVP once Route: IVP; Site: right forearm; kc6 15:36 Follow up: Response: No adverse reaction; Nausea is decreased; Vomiting decreased kc6 Disposition Summary: 02/01/25 15:42 Discharge Ordered Notes: Location: Home rn Problem: new rn Symptoms: have improved rn Condition: Stable rn Diagnosis - Vomiting, unspecified rn - Dehydration rn Followup: rn - With: Private Physician - When: As needed - Reason: Recheck today's complaints, Re-evaluation by your physician Discharge Instructions: - Discharge Summary Sheet rn - Dehydration, Adult rn - Nausea and Vomiting, Adult rn Forms: - Medication Reconciliation Form rn - Antibiotic general internal medicine physician - Prescription Opioid Use rn - Patient Portal Instructions rn - Leadership Thank You Letter rn Prescriptions: - ondansetron 4 mg Oral Tablet,disintegrating - take 1 tablet ORAL route every 8 hours As needed; 12 tablet; Refills: 0, rn Product Selection Permitted - Augmentin 875-125 mg Oral Tablet - take 1 tablet ORAL route every 12 hours for 10 days; 20 tablet; Refills: 0, rn Product Selection Permitted Signatures: Dispatcher [employer] EDMS Elias Baez MD MD rn Lewis, Lynsay, RN RN ll1 Bessie Sanchez RN RN kc6 Corrections: (The following items were deleted from the chart) 12:58 12:58 CBC+H.LAB.BRZ ordered. EDMS EDMS 12:58 12:58 COMPREHENSIVE METABOLIC PANEL+C.LAB.BRZ ordered. EDMS EDMS 12:58 12:58 LIPASE+C.LAB.BRZ ordered. EDMS EDMS 12:58 12:58 Test, Urine+UC.LAB.BRZ ordered. EDMS EDMS 12:58 12:58 Urinalysis+U.LAB.BRZ ordered. EDMS EDMS 12:58 12:58 COVID-19 Ag + Flu A+B Ag+I.LAB.BRZ ordered. EDMS EDMS 12:58 12:58 Abdomen Pelvis W Con+CT.RAD.BRZ ordered. EDMS EDMS
[2025-02-01 16:20] VITALS: BP 139/71; TEMP 97; O2SAT 96
== END 2025-02-01 15:51 | disposition home or self-care (01) ==
LOC: ER 12:28
DX: R11.10 Vomiting, unspecified (principal); E86.0 Dehydration; Z11.52 Encounter for screening for COVID-19
CPT/HCPCS: 96361; 85025; 81001; 36415; 81025; 83690; 80053; 74177; 96375; 96374; 99284; 87428; Q9967; J2550; J2405; J7030

== ENCOUNTER 2025-08-06 19:37 | Emergency (ER) | payer OTHER ==
--- OUTSIDE RECORDS SUMMARY | 2025-08-06 19:48 | XMS REPORT | Continuity of Care Document ---
Author Name Unknown Address [address] [facility] [address] [place] [address] Organization [facility] [place] Address [address] [facility] [address] [place] [address] Care Team Providers Care Whitewasher Name Role Phone Danilo Andersen Primary Care Physician + [phone] Michelle Lafleur Attending Clinician [phone] [facility] Gastroenterology Attending Clinicia n BEN WATSON Attending Clinician Unavailable BEN WATSON Attending Clinician Unavailable Ben Looney Attending Clinician [phone] CHRISTOPHER HUGHES Attending Clinician Unavailable CHRISTOPHER HUGHES Attending Clinician Unavailable Christopher Ibarra Attending Clinician [phone] EHSAN LIRA Attending Clinician Unavailable Ehsan Díaz Attending Clinician [phone] YOLANDA YATES Attending Clinician Unavailab EDDIE Moncada Attending Clinician Unavailable Eddie Velazquez MD Attending Clinician [phone] Sherman Penn Attending Clinician [phone] SHERMAN MYERS Attending Clinician Unavailable ADRIAN MANCIA Attending Clinician Unavailable BEN WATSON Admitting Clinician Unavailable EHSAN LIRA Admitting Clinician Unavailable YOLANDA YATES Admitting Clinician UnavailEDDIE Katz Admitting Clinician Unavailable Payers Payer Name Policy Type Policy Number Effective Date Expirati on Date Source [facility] Medicaid D [id number] 2019 00:00:00 [facility] [id number] 2023 00:00:00 Problems Condition Name Condition Details Condition Category Status Onset Date Resolution Date Last Treatment Date Treating Clinician Comments Source Hand sprain, right, initial encounter Hand sprain, right, initial encounter Disease Resolve d 7-16 00:00: 00 2025-07-19 00:00:00 2025-07-19 13:55:39 [facility] Cellulitis of right hand Cellulitis of right hand Disease Resolve d 05-23 00:00: 00 2025-07-19 00:00:00 2025-07-19 13:55:[address] [facility] Abrasion of right hand, initial encounter Abrasion of right hand, initial encounter Disease Resolve d 16 00:00: 00 2025-07-19 00:00:00 2025-07-19 13:55:45 [facility] Left wrist pain Left wrist pain Disease Resolve d 3-07 00:00: 00 2025-07-19 00:00:00 2025-07-19 13:55:30 [facility] Allergies, Adverse Reactions, Alerts Allergy Name Allergy Type Status Severity Reaction(s) Onset Date Inactive Date Treating Clinician Comments Source SHELLFIS H DERIVED DRUG INGREDI Active Unknown-Cmnt 03-03 00:00: [address] [facility] Shellfis h Derived Propensi ty to adverse reaction s Active Unknown - See comments 03-03 00:00: 00 [facility] NO KNOWN ALLERGIE S Drug Class Active [facility] Social History Social Habit Start Date Stop Date Quantity Comments Source ASSERTION Not [facility] of Social function 2025-07-19 00:00:00 2025-07-19 00:00:00 [facility] Alcoholic beverage intake 2025-07-19 00:00:00 2025-07-19 00:00:00 0 /d [facility] Alcohol intake 2023-12-03 00:00:00 2023-12-03 00:00:00 0 /d [facility] Exposure to SARS-CoV-2 (event) 2022-10-03 00:00:00 2022-10-13 15:50:00 Not sure [facility] Sex assigned at 2005 00:00:00 2005 00:00:00 [facility] Smoking Status Start Date Stop Date Source Never smoked tobacco [facility] Medications Ordered Medication Name Filled Medication Name Start Date Stop Date Current Medication? Ordering Clinician Indication Dosage Frequency Signature (SIG) Comments Components Source cariprazine (VRAYLAR) 4.5 mg capsule 07-19 13:51: 37 Yes 4.5mg Take 1 capsule by mouth in the morning. [facility] NaCl 0.9% (NS) IV infusion 1,000 mL 03-10 03:30: 00 03-10 04:10 :00 No 1000mL at 999 mL/hr, Intravenou s, ONCE, 1 dose, On Wed03/09/25 at 2230, Routine [facility] iopamidol (ISOVUE 370-500 mL) injection 65 mL 03-10 03:15: 00 03-10 03:15 :00 No [id number] 65mL 65 mL, Intravenou s, ONCE, 1 dose, On Wed03/09/25 at 2215, Routine [facility] ondansetron (ZOFRAN (PF)) injection 4 mg 03-10 02:30: 00 03-10 02:37 :00 No 4mg 4 mg, Slow IV Push, ONCE, 1 dose, On Wed03/09/25 at 2130, Administer over 2-5 Minutes, 2 mL [facility] morpHINE (4 mg/mL) injection 4 mg 03-10 02:30: 00 03-10 02:36 :00 No 4mg 4 mg, Slow IV Push, ONCE, 1 dose, On Wed03/09/25 at 2130, STAT [facility] NaCl 0.9% (NS) IV infusion 1,000 mL 03-10 01:30: 00 03-10 01:45 :00 No 1000mL at 999 mL/hr, Intravenou s, ONCE, 1 dose, On Wed03/09/25 at 2030, Routine [facility] famotidine (PEPCID (PF)) injection 20 mg 03-10 00:30: 00 03-10 00:42 :00 No 20mg 20 mg, Slow IV Push, ONCE, 1 dose, On Wed03/09/25 at 1930, SALLIE [facility] ondansetron (ZOFRAN (PF)) injection 4 mg 03-10 00:30: 00 03-10 00:42 :00 No 4mg 4 mg, Slow IV Push, ONCE, 1 dose, On Wed03/09/25 at 1930, Administer over 2-5 Minutes, 2 mL [facility] sodium chloride (NS) injection 5 mL 03-10 00:11: 17 Yes 5mL 5 mL, Intravenou s, PRN, Starting on Wed03/09/25 at 1911, Until Discontinu ed, Routine, IV line flushing [facility] dicyclomine 10 mg capsule 03-10 00:00: 00 07-19 00:00 :00 No [id number] 10mg Take 1 capsule by mouth 3 (three) times daily as needed for Abdominal pain. [facility] ondansetron 4 mg disintegrat ing tablet 03-10 00:00: 00 07-19 00:00 :00 No [id number] 4mg Take 1 tablet by mouth every 8 (eight) hours as needed for Nausea and Vomiting (N/V). [facility] buspirone 5 mg tablet 12 00:00: 00 Yes 1mg Ye Mcneil Vraylar 4.5 mg capsule -12 00:00: 00 Yes 1mg Ye F Tarun buspirone 5 mg tablet 2- 00:00: 00 Yes 1mg Ye Mcneil trazodone 50 mg tablet - 00:00: 00 Yes 1mg Ye Mcneil Vraylar 4.5 mg capsule - 00:00: 00 Yes 1mg Ye Mcneil NaCl 0.9% (NS) bolus infusion 1,000 mL 2023-11 16:30: 00 09-18 17:50 :00 No 1000mL at 999 mL/hr, 1,000 mL, IV Infusion, ONCE, 1 dose, On 09/18/24 at 1030, [facility] haloperidol lactate (HALDOL) injection 2.5 mg 2023-11 16:30: 00 09-18 16:50 :00 No 2.5mg 2.5 mg, Slow IV Push, ONCE, 1 dose, On 09/18/24 at 1030, [facility] proMETHazin e 25 mg suppository 2023-11 00:00: 00 07-19 00:00 :00 No [id number] 25mg Insert 1 Suppositor y into rectum every 6 (six) hours as needed for Nausea and Vomiting (N/V). [facility] iopamidol (ISOVUE 370-500 mL) injection 60 mL 2023-11 08:00: 00 09-17 08:00 :00 No [id number] 60mL 60 mL, Intravenou s, ONCE, 1 dose, On Wed09/17/24 at 0200, Routine [facility] dicyclomine (BENTYL) injection 20 mg 2023-11 05:00: 00 09-17 03:53 :00 No 20mg 20 mg, Intramuscu lar, ONCE, 1 dose, On 09/16/24 at 2300, [facility] ketorolac (TORADOL) injection 15 mg 2023-11 04:00: 00 09-17 03:53 :00 No 15mg 15 mg, Slow IV Push, ONCE, 1 dose, On 09/16/24 at 2200, [facility] famotidine (PEPCID (PF)) injection 20 mg 2023-11 04:00: 00 09-17 03:53 :00 No 20mg 20 mg, Slow IV Push, ONCE, 1 dose, On 09/16/24 at 2200, [facility] metoclopram joao HCl (REGLAN) injection 10 mg 2023-11 04:00: 00 09-17 03:53 :00 No 10mg 10 mg, Slow IV Push, ONCE, 1 dose, On 09/16/24 at 2200, [facility] ondansetron 4 mg disintegrat ing tablet 2023-11 00:00: 00 07-19 00:00 :00 No [id number] 4mg Take 1 tablet by mouth every 8 (eight) hours as needed for Nausea and Vomiting (N/V). [facility] dicyclomine 20 mg tablet 2023-11 00:00: 00 07-19 00:00 :00 No [id number] 20mg Take 1 tablet by mouth 4 (four) times daily as needed for Abdominal pain. [facility] trazodone 50 mg tablet 2023-11 0-13 00:00: 00 Yes 1mg Ye Mcneil Nexplanon 68 mg subdermal implant 2023-11 0- 00:00: 00 Yes 1mg Ye Mcneil buspirone 5 mg tablet 07-26 00:00: 00 Yes 1mg Ye Mcneil Vraylar 4.5 mg capsule 18 00:00: 00 Yes 1mg Ye Mcneil trazodone 50 mg tablet 8- 00:00: 00 Yes 1mg Ye Mcneil buspirone 5 mg tablet 8- 00:00: 00 Yes 1mg Ye Mcneil Vraylar 4.5 mg capsule 8-20 00:00: 00 Yes 1mg Ye Mcneil cefTRIAXone (ROCEPHIN) 350 mg/mL in Lidocaine 1 % injection 1,000 mg 05-24 01:30: 00 05-24 01:30 :00 No 1000mg 1,000 mg, Intramuscu lar, ONCE, 1 dose, On Wed05/23/24 at 2030, SALLIE, Reason for Anti-Infec tive: Documented Infection, Documented Infection Site: Skin / Soft Tissue, Duration of Therapy: Once (ED) [facility] ibuprofen (IBU) tablet 400 mg 05-23 23:00: 00 05-23 23:03 :00 No 400mg 400 mg, Oral, ONCE, 1 dose, On Wed05/23/24 at 1800, SALLIE [facility] amoxicillin -clavulanat e 875-125 mg per tablet 05-23 00:00: 00 06-03 04:59 :00 No [id number] 1{tbl} Take 1 tablet by mouth every 12 (twelve) hours for 10 days. [facility] cephALEXin 500 mg capsule 05-23 00:00: 00 05-23 00:00 :00 No [id number] 500mg Take 1 capsule by mouth 4 (four) times daily. [facility] buspirone 5 mg tablet 04-12 00:00: 00 Yes 1mg Ye F Tarun Vraylar 4.5 mg capsule 605 00:00: 00 Yes 1mg Ye F Traun Vraylar 3 mg capsule 5-08 00:00: 00 Yes mg Ye F Tarun Vraylar 3 mg capsule 3-18 00:00: 00 Yes mg Ye F Tarun iopamidol (ISOVUE 370-500 mL) injection 70 mL 12-03 16:30: 00 12-03 16:30 :00 No [id number] 70mL 70 mL, Intravenou s, ONCE, 1 dose, On Wed12/03/23 at 1030, Routine [facility] haloperidol lactate (HALDOL) injection 2.5 mg 12-03 15:00: 00 12-03 15:09 :00 No 2.5mg 2.5 mg, Intravenou s, ONCE, 1 dose, On Wed12/03/23 at 0900, [facility] morpHINE (2 mg/mL) injection 2 mg 12-03 15:00: 00 12-03 15:09 :00 No 2mg 2 mg, Slow IV Push, ONCE, 1 dose, On Wed12/03/23 at 0900, [facility] proCHLORper azine (COMPAZINE) 10 mg in NaCl 0.9% (NS) piggyback 12-03 14:30: 00 12-03 14:53 :00 No 10mg 10 mg, IV Piggyback, at 100 mL/hr Administer over 30 Minutes, ONCE, 1 dose, On Wed12/03/23 at 0830, [facility] ketorolac (TORADOL) injection 15 mg 12-03 14:30: 00 12-03 13:38 :00 No 15mg 15 mg, Slow IV Push, ONCE, 1 dose, On Wed12/03/23 at 0830, [facility] ondansetron (ZOFRAN (PF)) injection 4 mg 12-03 14:30: 00 12-03 13:38 :00 No 4mg 4 mg, Slow IV Push, ONCE, 1 dose, On Wed12/03/23 at 0830, [facility] NaCl 0.9% (NS) bolus infusion 1,000 mL 12-03 14:15: 00 12-03 14:53 :00 No 1000mL at 999 mL/hr, 1,000 mL, IV Infusion, ONCE, 1 dose, On Wed12/03/23 at 0815, [facility] DISSOLVE 1 TABLET BY MOUTH EVERY 8 HOURS NEEDED FOR NAUSEA AND VOMITING . 12-03 00:00: 00 Yes Ye Mcneil ondansetron 4 mg disintegrat ing tablet 12-03 00:00: 00 07-19 00:00 :00 No [id number] 4mg Take 1 tablet by mouth every 8 (eight) hours as needed for Nausea and Vomiting (N/V). 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 2021-11 2 00:00: 00 03-21 00:00 :00 No Ye Mcneil ESCITALOPRA M 10MG 2021-11 00:00: 00 Yes [id number] Ye Mcneil LORazepam (ATIVAN) tablet 2 mg 2021-11 23:15: 00 10-13 23:11 :00 No 2mg 2 mg, Oral, ONCE, 1 dose, On Wed10/13/22 at 1715, SALLIE [facility] TAKE 1 CAPSULE BY MOUTH EVERYDAY AT BEDTIME 2021-11 00:00: 00 Yes Ye Mcneil TAKE 1 TABLET BY MOUTH EVERYDAY AT BEDTIME 2021-11 2 00:00: 00 Yes 5 Ye Mcneil ESCITALOPRA M 10MG TAB 2021-11 1-30 00:00: 00 Yes Ye Mcneil ESCITALOPRA M OXALATE 5MG TAB 9- 00:00: 00 Yes Ye Mcneil TRAZODONE HYDROCHLORI DE 150MG TAB 2021-0 9-20 00:00: 00 Yes Ye Mcneil TRAZODONE HYDROCHLORI DE 150MG 2021-0 9- 00:00: 00 Yes [id number] Ye Mcneil &lt 8-12 00:00: 00 Yes 150 Ye Mcneil &lt 0 8 00:00: 00 Yes 5 Ye Mcneil &lt 0 06-19 00:00: 00 No 150 &lt 0 06-19 00:00: 00 No 5 TAKE 1 TABLET AT BEDTIME. 06-16 00:00: 00 Yes 150 Ye Mcneil TAKE 1 TABLET BY MOUTH TWICE A DAY 06-16 00:00: 00 Yes 20 Ye Mcneil TAKE 6 TABLETS ON DAY 1 DIRECTED ON PACKAGE AND DECREASE BY 1 TAB EACH DAY FOR A TOTAL OF 6 DAYS 06-16 00:00: 00 Yes 4 Ye Mcneil TAKE 1 TABLET AT BEDTIME. 06-16 00:00: 00 No 150 &lt 0 06-16 00:00: 00 Yes 50 Ye Mcneil TAKE 1 TABLET BY MOUTH TWICE A DAY 06-16 00:00: 00 No 20 &lt 0 06-16 00:00: 00 Yes 150 Ye Mcneil TAKE 6 TABLETS ON DAY 1 DIRECTED ON PACKAGE AND DECREASE BY 1 TAB EACH DAY FOR A TOTAL OF 6 DAYS 06-16 00:00: 00 No 4 &lt 0 06-16 00:00: 00 No 50 &lt 0 06-16 00:00: 00 No 150 TAKE 1 TABLET AT BEDTIME. 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 0 05-29 00:00: 00 Yes 10 Ye Mcneil &lt 2-0 05-29 00:00: 00 Yes 50 Ye Mcneil TAKE 1 AND 1/2 TABLETS DAILY. 0 05-29 00:00: 00 No 10 &lt 2-0 05-29 00:00: 00 No 50 TAKE 1 AND 1/2 TABLETS DAILY. 0 05-29 00:00: 00 No 10 &lt 2-0 05-29 00:00: 00 No 50 escitalopra m 10 mg tablet 0 05-04 00:00: 00 Yes 1mg Ye Mcneil [...] 00 No 1mg trazodone 150 mg tablet 0 04-02 00:00: 00 No 1mg Dose Unknown 0 04-02 00:00: 00 No escitalopra m 10 mg tablet 2021-0 04-02 00:00: 00 No 1mg trazodone 150 mg tablet 0 04-02 00:00: 00 No 1mg Dose Unknown 0 04-02 00:00: 00 No Dose Unknown 2021-0 03-24 00:00: 00 Yes Ye Mcneil Dose Unknown 0 03-24 00:00: 00 Yes Ye Mcneil naproxen [...] tablet 2021-0 17 00:00: 00 No 1mg escitalopra m 10 mg tablet 2021-0 03-06 00:00: 00 Yes 1mg Ye Mcneil trazodone 150 mg tablet 2021-0 03-06 00:00: 00 Yes 1mg Ye Mcneil escitalopra m 10 mg tablet 2022-0 4- 00:00: 00 No 1mg trazodone 150 mg tablet 2-0 4 00:00: 00 No 1mg escitalopra m 10 mg tablet 2-0 03-06 00:00: 00 No 1mg trazodone 150 mg tablet 2-0 4 00:00: 00 No 1mg escitalopra m 10 mg tablet 2-0 03-06 00:00: 00 No 1mg trazodone 150 mg tablet 2-0 03-06 00:00: 00 No 1mg Depo-Passenger Agent a 150 mg/mL intramuscul ar syringe 2-0 18 00:00: 00 Yes 1mg/mL Ye Mcneil Depo-Passenger Agent a 150 mg/mL intramuscul ar syringe 2-0 418 00:00: 00 No 1mg/mL Depo-Passenger Agent a 150 mg/mL intramuscul ar syringe 2-0 18 00:00: 00 No 1mg/mL Depo-Passenger Agent a 150 mg/mL intramuscul ar syringe 2-0 18 00:00: 00 No 1mg/mL escitalopra m 5 mg tablet 2-0 4- 00:00: 00 Yes 1mg Ye Mcneil Dose Unknown 2021-0 4-04 00:00: 00 Yes Ye Mcneil escitalopra [...] Mcneil escitalopra m 5 mg tablet 2022-0 3-04 [...] 00 Yes Ye Mcneil Dose Unknown 2022-0 2-09 00:00: 00 Yes Ye Mcneil Dose Unknown 2022-0 2-09 00:00: 00 No Dose Unknown 2022-0 2-09 00:00: 00 No Dose Unknown 2022-0 2-09 00:00: 00 No Dose Unknown 2022-0 2-09 00:00: 00 No Dose Unknown 2022-0 2-09 00:00: 00 No Dose Unknown 2022-0 2-09 00:00: 00 No escitalopra m 5 mg tablet 2-0 1-11 00:00: 00 Yes 1mg Ye Mcneil trazodone 150 mg tablet 2-0 1-11 00:00: 00 Yes 1mg Ye Mcneil escitalopra m 5 mg tablet 2-0 1-11 00:00: 00 No 1mg trazodone 150 mg tablet 2022-0 1-11 00:00: 00 No 1mg escitalopra m 5 mg tablet 2022-0 1-11 00:00: 00 No 1mg trazodone 150 mg tablet 2022-0 1-11 00:00: 00 No 1mg escitalopra m 5 mg tablet 0 1-11 00:00: 00 No 1mg trazodone 150 mg tablet 0 1-11 00:00: 00 No 1mg trazodone 150 mg tablet 2020-11 2-20 00:00: 00 Yes 1mg Ye Mcneil trazodone 150 mg tablet 2020-11 2-20 00:00: 00 No 1mg trazodone 150 mg tablet 2020-11 2-20 00:00: 00 No 1mg trazodone 150 mg tablet 2020-11 2-20 00:00: 00 No 1mg escitalopra m 5 mg tablet 2020-11 2- 00:00: 00 Yes 1mg Ye Bee Tarun trazodone 100 mg tablet 2020-11 2- 00:00: 00 Yes 1mg Ye Mcneil trazodone 50 mg tablet 2020-11 2- 00:00: 00 Yes 1mg Ye Mcneil escitalopra m 5 mg tablet 2020-11 2- 00:00: 00 No 1mg trazodone 100 mg tablet 2020-11 2- 00:00: 00 No 1mg trazodone 50 mg tablet 2020-11 2-17 00:00: 00 No 1mg escitalopra m 5 mg tablet 2020-11 2- 00:00: 00 No 1mg trazodone 100 mg tablet 2020-11 2- 00:00: 00 No 1mg trazodone 50 mg tablet 2020-11 2- 00:00: 00 No 1mg escitalopra m 5 mg tablet 2020-11 2-17 00:00: 00 No 1mg trazodone 100 mg tablet 2020-11 2-17 00:00: 00 No 1mg trazodone 50 mg tablet 2020-11 2-17 00:00: 00 No 1mg escitalopra m 5 mg tablet 2020-11 1-19 00:00: 00 Yes 1mg Ye Mcneil trazodone 50 mg tablet 2020-11 1-19 00:00: 00 Yes 1mg Ye Mcneil trazodone 100 mg tablet 2020-11 1-19 00:00: 00 Yes 1mg Ye Mcneil escitalopra [...] tablet 2020-11 00:00: 00 Yes 1mg Ye Bee Tarun trazodone 100 mg tablet 2020-11 00:00: 00 Yes 1mg Ye Bee Tarun trazodone 50 mg tablet 2020-11 00:00: 00 Yes 1mg Ye Bee Tarun escitalopra m 5 mg tablet 2020-11 00:00: [...] 1mg Ye Mcneil Zoloft 100 mg tablet 2021-0 3-09 00:00: 00 No 15mg carbamazepi ne ER 100 mg tablet,exte nded release,12 hr 3- 00:00: 00 No 1mg naltrexone 50 mg tablet - 00:00: 00 No 1mg clonidine HCl 0.2 mg tablet - 00:00: 00 No 1mg prazosin 1 mg capsule 3- 00:00: 00 No 1mg Zoloft 100 mg [...] 00 No 1mg Zoloft 100 mg tablet 1- 00:00: 00 Yes 15mg Ye Mcneil carbamazepi ne ER 100 mg tablet,exte nded release,12 hr - 00:00: 00 Yes 1mg Ye [place] Tarun naltrexone 50 mg tablet 1-15 00:00: 00 Yes 1mg Ye Bee Mcneil clonidine HCl 0.2 mg tablet -15 00:00: 00 Yes 1mg Yeedgar Mcneil prazosin 1 mg capsule 1-15 00:00: 00 Yes 1mg Yeedgar Mcneil Zoloft 100 mg tablet 1-15 00:00: 00 No 15mg carbamazepi ne ER [...] No 1mg sertraline 25 mg tablet 2019-11 015 00:00: 00 Yes 1mg Ye Mcneil carbamazepi [...] No 1mg naltrexone 50 mg tablet 2019-11 015 00:00: 00 No 1mg sertraline 50 mg tablet 2019-11 015 00:00: 00 No 1mg clonidine HCl 0.2 mg tablet 2019-11 015 00:00: 00 No 1mg prazosin 1 mg capsule 2019-11 015 00:00: 00 No 1mg sertraline 25 mg tablet 2019-11 015 00:00: 00 No 1mg carbamazepi ne ER 100 mg tablet,exte nded release,12 hr 2019-1115 00:00: 00 No 1mg naltrexone 50 mg tablet 2019-1115 00:00: 00 No 1mg sertraline 50 mg tablet 2019-1115 00:00: 00 No 1mg clonidine HCl 0.2 mg tablet 2019-11 00:00: 00 No 1mg prazosin 1 mg capsule 2019-11 0 00:00: 00 No 1mg sertraline 25 mg [...] mg capsule 07-25 00:00: 00 No 1mg carbamazepi ne [...] Unknown 04-03 00:00: 00 Yes Ye Mcneil sertraline 100 mg tablet 04-13 [...] 12mg Ye Mcneil sertraline 100 mg tablet 03-09 [...] 03-09 00:00: 00 Yes 1mg Ye Mcneil naltrexone 50 mg tablet 02-09 [...] mg tablet 02-09 00:00: 00 Yes 1mg eY Mcneil sertraline 100 mg tablet 02-09 00:00: 00 Yes 2mg Ye Mcneil sertraline 100 mg tablet 12-29 00:00: 00 No 2mg sertraline 100 mg tablet 12-29 00:00: 00 No 2mg sertraline 100 mg tablet 12-29 00:00: 00 No 2mg sertraline 100 mg tablet 12-29 00:00: 00 Yes 2mg Ye Mcneil sertraline 100 mg tablet 11-17 00:00: 00 No 15mg sertraline 100 mg tablet 11-17 00:00: 00 No 15mg sertraline 100 mg tablet 11-17 00:00: 00 No 15mg sertraline 100 mg tablet 11-17 00:00: 00 Yes 15mg Ye Mcneil fluticasone propionate 50 mcg/actuati on [...] spray,suspe nsion 2017-11 00:00: 00 Yes 1mcg/ac isaias Mcniel loratadine 10 mg tablet 2017-11 00:00: 00 [...] 00 No 1mg Zoloft 50 mg tablet 04-06 00:00: 00 No 1mg Abilify 5 mg tablet 04-06 00:00: 00 No 1mg Zoloft 50 mg tablet 04-06 00:00: 00 No 1mg Abilify 5 mg tablet 04-06 00:00: 00 No 1mg Zoloft 50 mg tablet 04-06 00:00: 00 No 1mg Abilify 5 mg tablet 04-06 00:00: 00 Yes 1mg Ye Mcneil [...] No 1mg Zoloft 50 mg tablet 0 02-10 00:00: 00 No 1mg Abilify 5 mg tablet 0 02-10 00:00: 00 No 1mg Zoloft 50 mg tablet 02-10 00:00: 00 No 1mg Abilify 5 mg tablet 0 02-10 00:00: 00 No 1mg Zoloft 50 mg tablet 0 02-10 00:00: 00 No 1mg Abilify 5 mg tablet 0 02-10 00:00: 00 Yes 1mg Ye Mcneil Zoloft 50 mg tablet 0 02-10 00:00: 00 Yes 1mg Ye Mcneil Abilify 5 mg tablet 0 12-09 00:00: 00 No 1mg Zoloft 50 mg tablet 0 2 00:00: 00 No 1mg Abilify 5 mg tablet 0 2 00:00: 00 No 1mg Zoloft 50 mg tablet 0 2 00:00: 00 No 1mg Abilify 5 mg tablet 0 2 00:00: 00 No 1mg Zoloft 50 mg tablet 0 2 00:00: 00 No 1mg Abilify 5 [...] tablet 06-24 00:00: 00 Yes 15mg Ye Mcneil trazodone 50 mg tablet 06-24 00:00: 00 Yes 51mg Ye Mcneil Zoloft 25 mg tablet 05-13 00:00: [...] 05-13 00:00: 00 Yes 1mg Ye Mcneil trazodone 50 mg tablet 05-13 00:00: 00 Yes 51mg Ye Mcneil Risperdal 0.5 mg tablet 05-13 00:00: 00 Yes 15mg Ye Bee Mcneil trazodone 50 mg tablet 05-05 00:00: [...] tablet 04-15 00:00: 00 Yes 1mg Ye Bee Mcneil Risperdal 0.5 mg tablet 04-15 00:00: 00 Yes 15mg Ye Mcneil TRAZODONE HCL (TRAZODONE ORAL) 04-11 00:28: 25 Yes Take by mouth. [facility] azithromyci n 250 mg tablet 04-11 00:00: 00 Yes 250mg Take 1 tablet by mouth daily. [facility] trazodone 50 mg tablet 03-04 00:00: [...] Hayes Barr PA-C / Masood Pablo MD [facility]# [id number] [facility]# [id number] x Lic.# [id number] [facility]# [id number] [facility] Zoloft 25 mg tablet 12-23 00:00: 00 No 1mg Risperdal 0.5 mg tablet 12-23 00:00: 00 No 1mg Zoloft 25 mg tablet 12-23 00:00: 00 No 1mg Risperdal 0.5 mg tablet 12-23 00:00: 00 No 1mg Zoloft 25 mg tablet 12-23 00:00: 00 No 1mg Risperdal 0.5 mg tablet 12-23 00:00: 00 No 1mg SERTraline 25 mg tablet 12-23 00:00: 00 Yes TAKE ONE TABLET BY MOUTH DAILY IN THE MORNING [facility] Zoloft 25 mg tablet 12-23 00:00: 00 Yes 1mg Ye Mcneil Risperdal 0.5 mg tablet 12-23 00:00: 00 Yes 1mg Ye Mcneil risperiDONE 0.5 mg tablet 12-23 00:00: 00 07-19 00:00 :00 No TAEK 1 TABLET BY MOUTH ONCE NIGHTLY [facility] Immunizations Ordered Immunization Name Filled Immunization Name Date Status Comments Source HPV 2019-06-13 00:00:00 Completed HPV9 HPV9 2018-07-08 00:00:00 Completed Ye [facility] meningococcal MCV4P meningococcal MCV4P 00:00:00 Completed Ye [facility] Tdap Tdap 2018-07-08 00:00:00 Completed Ye [facility] HPV9 2018-07-08 00:00:00 Completed meningococcal MCV4P 2018-07-08 00:00:00 Completed Tdap 2018-07-08 00:00:00 Completed HPV9 2018-07-08 00:00:00 Completed meningococcal MCV4P 2018-07-08 00:00:00 Completed Tdap 2018-07-08 00:00:00 Completed HPV9 2018-07-08 00:00:00 Completed meningococcal MCV4P 2018-07-08 00:00:00 Completed Tdap 2018-07-08 00:00:00 Completed HPV9 2018-07-08 00:00:00 Completed Meningococcal Polysaccharide (groups A, C, Y and W-135) conjugate vaccine (MCV4P) 2018-07-08 00:00:00 Completed TDAP 2018-07-08 00:00:00 Completed Influenza, seasonal, inj Influenza, seasonal, inj 2016-12-23 00:00:00 Completed Ye Mcneil Influenza, seasonal, inj 2016-12-23 00:00:00 Completed Influenza, seasonal, inj 2016-12-23 00:00:00 Completed Influenza, seasonal, inj 2016-12-23 00:00:00 Completed Influenza Virus Vaccine - Whole 2016-12-23 00:00:00 Completed DTaP DTaP 2010-06-02 00:00:00 Completed Ye [facility] DTaP 2010-06-02 00:00:00 Completed DTaP 2010-06-02 00:00:00 Completed DTaP 2010-06-02 00:00:00 Completed DTaP, Unspecified Formulation 2010-06-02 00:00:00 Completed DTaP DTaP 2009-10-17 00:00:00 Completed [facility] Hep A, ped/adol, 2 dose Hep A, ped/adol, 2 dose 2009-10-17 00:00:00 Completed Ye Mcneil MMR MMR 2009-10-17 00:00:00 Completed Ye Mcneil IPV IPV 2009-10-17 00:00:00 Completed Ye Mcneil varicella varicella 2009-10-17 00:00:00 Completed Ye Mcneil DTaP 2009-10-17 00:00:00 [...] 2009-10-17 00:00:00 Completed varicella 2009-10-17 00:00:00 Completed DTaP, Unspecified Formulation 2009-10-17 00:00:00 Completed HEPATITIS A 2009-10-17 00:00:00 Completed MMR 2009-10-17 00:00:00 Completed IPV 2009-10-17 00:00:00 Completed Varicella (varivax)(chicken pox) 2009-10-17 00:00:00 Completed DTaP DTaP 2009-03-08 00:00:00 Completed Ye Mcneil Hep B, adolescent or ped Hep B, adolescent or ped 2009-03-08 00:00:00 Completed Ye Mcneil IPV IPV 2009-03-08 00:00:00 Completed Ye Mcneil DTaP 2009-03-08 00:00:00 Completed Hep B, adolescent or ped 2009-03-08 00:00:00 Completed IPV 2009-03-08 00:00:00 Completed DTaP 2009-03-08 00:00:00 Completed Hep B, adolescent or ped 2009-03-08 00:00:00 Completed IPV 2009-03-08 00:00:00 Completed DTaP 2009-03-08 00:00:00 Completed Hep B, adolescent or ped 2009-03-08 00:00:00 Completed IPV 2009-03-08 00:00:00 Completed DTaP, Unspecified Formulation 2009-03-08 00:00:00 Completed Hep B, Adol or Pedi Dosage 2009-03-08 00:00:00 Completed IPV 2009-03-08 00:00:00 Completed DTaP-Hep B-IPV DTaP-Hep B-IPV 2008-11-19 00:00:00 Completed Ye Mcneil Hep A, ped/adol, 2 dose Hep A, ped/adol, 2 dose 2008-11-19 00:00:00 Completed Ye Mcneil Hib (PRP-OMP) Hib (PRP-OMP) 2008-11-19 00:00:00 Completed Ye Mcneil MMR MMR 2008-11-19 00:00:00 Completed Ye Mcneil Pneumococcal conjugate P Pneumococcal conjugate P 2008-11-19 00:00:00 Completed Ye Mcneil varicella varicella 2008-11-19 00:00:00 Completed Ye Mcneil DTaP-Hep B-IPV 2008-11-19 [...] 2008-11-19 00:00:00 Completed varicella 2008-11-19 00:00:00 Completed Pediarix (dtap/hep B/ipv) 2008-11-19 00:00:00 Completed [facility] HEPATITIS A 2008-11-19 00:00:00 Completed Hib-HbOC 2008-11-19 00:00:00 Completed MMR 2008-11-19 00:00:00 Completed Pneumococcal 7 Conjugate, PCV7 (Prevnar7) 2008-11-19 00:00:00 Completed Varicella (varivax)(chicken pox) 2008-11-19 00:00:00 Completed Hep B, adolescent or ped Hep B, adolescent or ped 2005 00:00:00 Completed Ye Mcneil Hep B, adolescent or ped 2005 00:00:00 Completed Hep B, adolescent or ped 2005 00:00:00 Completed Hep B, adolescent or ped 2005 00:00:00 Completed Hep B, Adol or Pedi Dosage 2005 00:00:00 Completed Vital Signs Vital Name Observation Time Observation Value Comments S isha Systolic blood pressure 2025-07-19 18:28:00 120 mm[Hg] [place] [facility] Diastolic blood pressure 2025-07-19 18:28:00 77 mm[Hg] [facility] Heart rate 2025-07-19 18:28:00 100 /min [facility] Body temperature 2025-07-19 18:28:00 36.17 Nayeli [facility] Respiratory rate 2025-07-19 18:28:00 18 /min [facility] Body height 2025-07-19 18:28:00 157.5 cm [facility] Body weight 2025-07-19 18:28:00 60.963 kg [facility] BMI 2025-07-19 18:28:00 24.58 kg/m2 [facility] Body temperature 2025-03-10 05:40:00 36.89 Nayeli [facility] Systolic blood pressure 2025-03-10 05:14:00 122 mm[Hg] [facility] Diastolic blood pressure 2025-03-10 05:14:00 76 mm[Hg] [facility] Heart rate 2025-03-10 05:14:00 68 /min Unive [facility] Respiratory rate 2025-03-10 05:14:00 13 /min [facility] Oxygen saturation in Arterial blood by Pulse oximetry 2025-03-10 05:14:00 98 /min [facility] Body height 2025-03-10 00:11:00 157.5 cm [facility] Body weight 2025-03-10 00:11:00 54.432 kg [facility] BMI 2025-03-10 00:11:00 21.95 kg/m2 [facility] Systolic blood pressure 2024-09-18 19:00:00 99 mm[Hg] [facility] Diastolic blood pressure 2024-09-18 19:00:00 50 mm[Hg] [facility] Body temperature 2024-09-18 19:00:00 36.78 Nayeli [facility] Respiratory rate 2024-09-18 19:00:00 19 /min [facility] Heart rate 2024-09-18 17:00:00 69 /min Unive [facility] Oxygen saturation in Arterial blood by Pulse oximetry 2024-09-18 17:00:00 97 /min [facility] Body height 2024-09-18 15:32:00 157.5 cm [facility] Body weight 2024-09-18 15:32:00 53.978 kg [facility] BMI 2024-09-18 15:32:00 21.77 kg/m2 [facility] Body temperature 2024-09-17 08:06:00 37.06 Nayeli [facility] Systolic blood pressure 2024-09-17 07:22:00 129 mm[Hg] [facility] Diastolic blood pressure 2024-09-17 07:22:00 92 mm[Hg] [facility] Heart rate 2024-09-17 07:22:00 65 /min Unive [facility] Respiratory rate 2024-09-17 07:22:00 16 /min [facility] Oxygen saturation in Arterial blood by Pulse oximetry 2024-09-17 07:22:00 99 /min [facility] Body height 2024-09-17 03:48:00 157.5 cm [facility] Body weight 2024-09-17 03:48:00 53.978 kg [facility] BMI 2024-09-17 03:48:00 21.77 kg/m2 [facility] Systolic blood pressure 2024-05-24 01:17:50 110 mm[Hg] [facility] Diastolic blood pressure 2024-05-24 01:17:50 80 mm[Hg] [facility] Heart rate 2024-05-24 01:17:50 98 /min [facility] Body temperature 2024-05-24 01:17:50 37.22 Nayeli [facility] Respiratory rate 2024-05-24 01:17:50 16 /min [facility] Oxygen saturation in Arterial blood by Pulse oximetry 2024-05-24 01:17:50 98 /min [facility] Body height 2024-05-23 22:30:00 157.5 cm [facility] Body weight 2024-05-23 22:30:00 50.349 kg [facility] BMI 2024-05-23 22:30:00 20.30 kg/m2 [facility] Body mass index (BMI) [Percentile] Per age and sex 2024-05-23 22:30:00 34.22 % [facility] Systolic blood pressure 2023-12-03 15:08:49 123 mm[Hg] [facility] Diastolic blood pressure 2023-12-03 15:08:49 79 mm[Hg] [facility] Heart rate 2023-12-03 15:08:49 71 /min [facility] Respiratory rate 2023-12-03 15:08:49 20 /min [facility] Oxygen saturation in Arterial blood by Pulse oximetry 2023-12-03 15:08:49 99 /min [facility] Body temperature 2023-12-03 12:48:00 37 Nayeli [facility] Body height 2023-12-03 12:48:00 160 cm [facility] Body weight 2023-12-03 12:48:00 49.896 kg [facility] BMI 2023-12-03 12:48:00 19.49 kg/m2 [facility] Body mass index (BMI) [Percentile] Per age and sex 2023-12-03 12:48:00 24.63 % [facility] Systolic blood pressure 2022-10-13 21:54:00 126 mm[Hg] [facility] Diastolic blood pressure 2022-10-13 21:54:00 86 mm[Hg] [facility] Heart rate 2022-10-13 21:54:00 85 /min [facility] Body temperature 2022-10-13 21:54:00 36.83 Nayeli [facility] Respiratory rate 2022-10-13 21:54:00 20 /min [facility] Body weight 2022-10-13 21:54:00 48.081 kg [facility] Oxygen saturation in Arterial blood by Pulse oximetry 2022-10-13 21:54:00 99 /min [facility] BP Systolic 2025-03-13 10:56:00 99 mm[Hg] Step hen F Tarun BP Diastolic 2025-03-13 10:56:00 75 mm[Hg] Keith phen F Tarun Weight Measured 2025-03-13 10:56:00 124.00 pounds Ye F Tarun Height Measured 2025-03-13 10:56:00 62.50 inches Ye F Tarun Body Temperature 2025-03-13 10:56:00 97.50 degrees Ye F Tar[facility] Heart Rate 2025-03-13 10:56:00 117.00 /min Step [facility] Respiratory Rate 2025-03-13 10:56:00 18.00 /min Ye F Tarun BP Systolic 2024-08-10 08:43:00 112 mm[Hg] Step [...] Ye F Tarun Heart Rate 2022-03-24 17:02:00 Rosaile en F Tarun Respiratory Rate 2022-03-24 17:02:00 [...] Heart Rate 2021-09-26 16:56:00 79.00 /min Rosalie Mcneil Respiratory Rate 2021-09-26 16:56:00 18.00 /min Ye Mcneil BP Systolic 2021-09-19 16:01:00 108 mm[Hg] BP [...] Procedure Date / Time Performed Performing Clinician Source GC & CHLAMYDIA AMPLIFIED ASSAY 2025-07-19 19:28:00 Michelle Mata [facility] TRICHOMONAS AMPLIFIED ASSAY 2025-07-19 19:28:00 Adolfo [facility] HIV 1/2 AG-AB WITH REFLEX 2025-07-19 19:25:00 Adolof [facility] SYPHILIS IGG/IGM 2025-07-19 19:25:00 Michelle M[facility] CT ABDOMEN PELVIS W CONTRAST 2025-03-10 02:22:51 Ben Watson [facility] POCT TEST 2025-03-10 00:34:00 Nia Watson [facility] URINALYSIS 2025-03-10 00:30:00 Ben Watson [facility] LIPASE 2025-03-10 00:26:00 Ben Watson [facility] COMP. METABOLIC PANEL (56884) 2025-03-10 00:26:00 Ben Watson [facility] CBC WITH DIFF 2025-03-10 00:26:00 Ben Watson [facility] LIPASE 2024-09-18 15:53:00 Christopher Hughes [facility] COMP. METABOLIC PANEL (04149) 2024-09-18 15:53:00 Christopher Hughes [facility] CBC WITH DIFF 2024-09-18 15:53:00 Christopher Hughes [facility] CT ABDOMEN PELVIS W CONTRAST 2024-09-17 07:08:48 Ehsan Lira [facility] TEST, SERUM 2024-09-17 04:25:00 Bruce Lira se [facility] LIPASE 2024-09-17 04:04:00 Ehsan Lira [facility] HEPATIC FUNCTION PANEL (47843) (ALB,T.PRO,BILI T,BU/BC,ALT,AST,ALK PHOS) 2024-09-17 04:04:00 Ehsan Lira [facility] BASIC METABOLIC PANEL (NA, K, CL, CO2, GLUCOSE, BUN, CREATININE, CA) 2024-09-17 04:04:00 Ehsan Lira [facility] ETHANOL 2024-09-17 04:04[facility] 2024-09-17 04:04:00 Ehsan Lira [facility] XR HAND 3+ VW RIGHT 2024-05-23 23:06:00 Roque Yates [facility] CT ABDOMEN PELVIS W CONTRAST 2023-12-03 15:30:42 Eddie Velazquez [facility] POCT TEST 2023-12-03 13:42:00 Eddie Velazquez [facility] LIPASE 2023-12-03 13:37:00 Eddie Velazquez [facility] COMP. METABOLIC PANEL (25316) 2023-12-03 13:37:00 Eddie Velazquez [facility] CBC WITH DIFF 2023-12-03 13:37:00 Eddie Velazquez [facility] URINALYSIS 2023-12-03 13:37:00 Eddie Velazquez [facility] NOTICE OF PRIVACY PRACTICES 2022-10-13 21:42:48 Doctor Unassigned, [place] [facility] CONSENT/REFUSAL FOR DIAGNOSIS AND TREATMENT 2022-10-13 21:42:01 Doctor Unassigned, [place] [facility] Plan of Care Planned Activity Planned Date Details Comments Source Goal Plan of Care Note [code = 37792-5] Goal Plan of Care Note [code = 17710-8] Goal Plan of Care Note [code = 92385-9] Goal Plan of Care Note [code = 97959-4] Goal Plan of Care Note [code = 95497-7] Goal Plan of Care Note [code = 81166-8] Goal Plan of Care Note [code = 45113-3] Goal Plan of Care Note [code = 16940-6] Goal Plan of Care Note [code = 18155-7] Goal Plan of Care Note [code = 30184-7] Goal Plan of Care Note [code = 17767-9] Goal Plan of Care Note [code = 75158-2] Goal Plan of Care Note [code = 65761-2] Goal Plan of Care Note [code = 47075-8] Goal Plan of Care Note [code = 16184-2] Goal Plan of Care Note [code = 81341-4] Goal Plan of Care Note [code = 22096-5] Goal Plan of Care Note [code = 70746-5] Goal Plan of Care Note [code = 74983-3] Goal Plan of Care Note [code = 26581-4] Goal Plan of Care Note [code = 23497-1] Goal Plan of Care Note [code = 14815-7] Goal Plan of Care Note [code = 24951-4] Goal Plan of Care Note [code = 41681-0] Goal Plan of Care Note [code = 54667-8] Goal Plan of Care Note [code = 02033-0] Goal Plan of Care Note [code = 95906-5] Goal Plan of Care Note [code = 99873-7] Goal Plan of Care Note [code = 92265-3] Goal Plan of Care Note [code = 46117-6] Goal Plan of Care Note [code = 13090-7] Goal Plan of Care Note [code = 59718-6] Goal Plan of Care Note [code = 01156-8] Goal Plan of Care Note [code = 48706-1] Goal Plan of Care Note [code = 18066-4] Goal Plan of Care Note [code = 01981-4] Goal Plan of Care Note [code = 44926-6] Goal Plan of Care Note [code = 40451-9] Goal Plan of Care Note [code = 39526-4] Goal Plan of Care Note [code = 36646-4] Goal Plan of Care Note [code = 48493-0] Goal Plan of Care Note [code = 61539-4] Goal Plan of Care Note [code = 39014-5] Goal Plan of Care Note [code = 69936-4] Goal Plan of Care Note [code = 28959-6] Goal Plan of Care Note [code = 00049-0] Goal Plan of Care Note [code = 59759-9] Goal Plan of Care Note [code = 11660-0] Goal Plan of Care Note [code = 50861-2] Goal Plan of Care Note [code = 39498-0] Goal Plan of Care Note [code = 92442-8] Goal Plan of Care Note [code = 70579-7] Goal Plan of Care Note [code = 72152-3] Goal Plan of Care Note [code = 13235-7] Goal Plan of Care Note [code = 55613-2] Goal Plan of Care Note [code = 28731-4] Goal Plan of Care Note [code = 98831-3] Goal Plan of Care Note [code = 59393-3] Goal Plan of Care Note [code = 86920-1] Goal Plan of Care Note [code = 77175-8] Goal Plan of Care Note [code = 78224-4] Goal Plan of Care Note [code = 67032-5] Goal Plan of Care Note [code = 95964-2] Encounters Start Date/Time End Date/Time Encounter Type Admission Type Attending [facility] Care Facility Care Department Encounter ID Source 2022-01-31 13:37:30 Outpatient [facility] [id number] [facility] 2025-07-19 13:45:00 2025-07-19 14:26:47 Office Visit Michelle Agustin [facility] PATIENT COORDINATOR [facility] 1.2.840.114 350.1.13.10 4.2.7.2.686 [id number] [facility] 2025-07-03 12:57:21 2025-07-03 12:57:21 Outpatient SFA SFA 0826 Ye Mcneil 2025-06-04 11:51:05 2025-06-04 11:51:05 Outpatient SFA SFA [id number] Ye Mcneil 2025-05-02 19:59:09 2025-05-02 19:59:09 Outpatient SFA SFA 25 Ye Mcneil 2025-03-30 09:10:05 2025-03-30 09:10:05 Outpatient SFA [facility] [id number] Ye Mcneil 2025-03-27 00:00:00 2025-03-27 09:58:02 Letter (Out) Clinic, [facility] Clinic, [facility]y [facility] 1.2.840.114 350.1.13.10 4.2.7.2.686 [id number] [facility] 2025-03-13 00:00:00 2025-03-13 00:00:00 Outpatient Visit [facility] [id number] Ye Gamboa Tarun 2025-03-09 19:14:00 2025-03-10 00:42:00 Emergency X BEN WATSON [facility] [id number] [facility] 2025-03-09 19:14:00 2025-03-10 00:42:00 Emergency Ben Watson [facility] 1.2.840.114 350.1.13.10 4.2.7.2.686 [id number] [facility] 2025-02-14 15:37:21 2025-02-14 15:37:21 Outpatient SFA [facility] [id number] Ye Gamboa Tarun 2025-02-05 16:06:13 2025-02-05 16:06:13 Outpatient SFA [facility] [id number] Ye Gamboa Tarun 2025-01-25 13:01:02 2025-01-25 13:01:02 Outpatient SFA [facility] [id number] Ye Mcneil 2025-01-17 11:50:18 2025-01-17 11:50:18 Outpatient SFA [facility] [id number] Ye Mcneil 2024-12-27 16:36:31 2024-12-27 16:36:31 Outpatient SFA [facility] [id number] Ye Mcneil 2024-12-26 10:53:34 2024-12-26 10:53:34 Outpatient SFA [facility] [id number] Ye Mcneil 2024-12-25 15:22:59 2024-12-25 15:22:59 Outpatient SFA [facility] 7 Ye Mcneil 2024-09-18 09:33:00 2024-09-18 13:04:00 Emergency X CHRISTOPHER HUGHES ERICCA [facility] ERT [id number] [facility] 2024-09-18 09:33:00 2024-09-18 13:04:00 Emergency Christopher Hughes [facility] 1.2.840.114 350.1.13.10 4.2.7.2.686 [id number] [facility] 2024-09-16 21:45:00 2024-09-17 02:14:00 Emergency X PANKAJEHSAN ARRINGTON [facility] ERT [id number] [facility] 2024-09-16 21:45:00 2024-09-17 02:14:00 Emergency PankajMarilynerick [facility] 1.2.840.114 350.1.13.10 4.2.7.2.686 [id number] [facility] 2024-08-10 08:38:37 2024-08-10 08:38:37 Outpatient SFA [facility] 100 Ye Mcneil 2024-08-08 14:16:16 2024-08-08 14:16:16 Outpatient SFA [facility] 100 Ye Mcneil 2024-08-08 00:00:00 2024-08-08 00:00:00 Outpatient Visit SFA [id number] Ye Mcneil 2024-07-26 14:08:46 2024-07-26 14:08:46 Outpatient SFA [facility] [id number] Ye Mcneil 2024-07-06 13:08:32 2024-07-06 13:08:32 Outpatient SFA [facility] [id number] Ye Mcneil 2024-07-06 00:00:00 2024-07-06 00:00:00 Outpatient Visit [facility] [id number] Ye Mcneil 2024-06-22 13:05:40 2024-06-22 13:05:40 Outpatient SFA [facility] [id number] Ye Mcneil 2024-06-22 00:00:00 2024-06-22 00:00:00 Outpatient Visit [facility] [id number] Ye Mcneil 2024-05-23 17:33:00 2024-05-23 20:19:00 Emergency X ADERIJAMESE, ROQUEBRIL [facility] ERT [id number] [facility] 2024-05-23 17:33:00 2024-05-23 20:19:00 Emergency Aderiroxylatashae, Tipil [facility] 1.2.840.114 350.1.13.10 4.2.7.2.686 [id number] [facility] 2024-04-19 15:04:55 2024-04-19 15:04:55 Outpatient SFA [facility] 12 Ye Mcneil 2023-12-03 06:49:00 2023-12-03 10:53:00 Emergency X CAROLINE EDDIE [facility] ERT [id number] [facility] 2023-12-03 06:49:00 2023-12-03 10:53:00 Emergency CarolineRishiEddie E [facility] 1.2.840.114 350.1.13.10 4.2.7.2.686 [id number] [facility] 2023-07-11 14:12:02 2023-07-11 14:12:02 Outpatient SFA [facility] [id number] Ye Mcneil 2023-07-07 13:37:43 2023-07-07 13:37:43 Outpatient SFA [facility] 08 Ye Mcneil 2023-06-25 14:04:54 2023-06-25 14:04:54 Outpatient SFA [facility] [id number] Ye Mcneil 2022-10-13 15:56:00 2022-10-13 18:33:00 Emergency Sherman Myers [facility] 1.2.840.114 350.1.13.10 4.2.7.2.686 [id number] [facility] 2022-10-13 15:56:00 2022-10-13 18:33:00 Emergency X SHERMAN MYERS [facility] ERT [id number] [facility] 2022-09-01 13:24:30 2022-09-01 13:24:30 Outpatient [facility] [id number] Ye Mcneil 2022-06-16 00:00:00 2022-06-16 00:00:00 Outpatient Visit [id number] 2022-06-04 00:00:00 2022-06-04 00:00:00 Outpatient Visit [id number] 2022-05-28 00:00:00 2022-05-28 00:00:00 Outpatient Visit [id number] 2022-05-01 08:00:00 2022-05-01 08:00:00 Outpatient ADRIAN URENA [facility] [id number] [facility] Results Test Description Test Time Test Comments Results Result Co mments Source Ye McneilLIPID [id number] 00:00:00* Test Item Value Reference Range Interpretation Comme nts CHOLESTEROL, TOTAL (test cod e = 2093-3) 143 mg/dL HDL CHOLESTEROL (test code = 2085-9) 79 mg/dL TRIGLYCERIDES (test code = 2571-8) 70 mg/dL LDL-CHOLESTEROL (test code = 72824-1) 49 mg/dL(calc) CHOL/HDLC RATIO (test code = 9830-1) 1.8 (calc) NON HDL CHOLESTEROL (test co de = 27255-5) 64 mg/dL(calc) Ye Gamboa AustinRPR (MONITOR) W/REFL [id number] 00:00:00* Test Item Value Reference Range Interpretation Comme nts RPR (MONITOR) W/REFL TITER ( test code = 62261-2) NON-REACTIVE Ye McneilHEPATITIS PANEL, [id number] 00:00:00* Test Item Value Reference Range Interpretation Comme nts HEPATITIS A AB, TOTAL (test code = 30449-8) REACTIVE HEPATITIS B SURFACE ANTIBODY QL (test code = 72108-5) NON-REACTIVE HEPATITIS B SURFACE ANTIGEN (test code = 5196-1) NON-REACTIVE CONFIRMATION (test code = 7905-3) DNR HEPATITIS B CORE AB TOTAL (t est code = 20912-5) NON-REACTIVE HEPATITIS C ANTIBODY (test c ode = 42347-4) NON-REACTIVE Ye McneilCHLAMYDIA/N. GONORRHOEAE RNA, [id number] 00:00:00* Test Item Value Reference Range Interpretation Comme jeff CHLAMYDIA TRACHOMATIS RNA, T MA, UROGENITAL (test code = 45454-8) NOT DETECTED NEISSERIA GONORRHOEAE RNA, T MA, UROGENITAL (test code = 92125-5) NOT DETECTED Ye McneilHIV 1/2 ANTIGEN/ANTIBODY,FOURTH GENERATION [id number] 00:00:00* Test Item Value Reference Range Interpretation Comme nts HIV AG/AB, 4TH GEN (test cod e = 56957-6) NON-REACTIVE Ye McneilCBC (INCLUDES DIFF/PLT)2025-03-15 00:00:00* Test Item Value Reference Range Interpretation Comme nts WHITE BLOOD CELL COUNT (test code = 6690-2) 10.0 Thousand/uL RED BLOOD CELL COUNT (test code = 789-8) 4.67 Million/uL HEMOGLOBIN (test code = 718-7) 14.1 g/dL HEMATOCRIT (test code = 4544-3) 43.0 % MCV (test code = 787-2) 92.1 fL MCH (test code = 785-6) 30.2 pg MCHC (test code = 786-4) 32.8 g/dL RDW (test code = 788-0) 13.5 % PLATELET COUNT (test code = 777-3) 339 Thousand/uL MPV (test code = 776-5) 10.6 fL ABSOLUTE NEUTROPHILS (test code = 751-8) 5740 cells/uL ABSOLUTE BAND NEUTROPHILS (test code = 34504-9) DNR cells/uL ABSOLUTE METAMYELOCYTES (test code = 84987-6) DNR cells/uL ABSOLUTE MYELOCYTES (test code = 08079-1) DNR cells/uL ABSOLUTE PROMYELOCYTES (test code = 02698-0) DNR cells/uL ABSOLUTE LYMPHOCYTES (test code = 731-0) 3360 cells/uL ABSOLUTE MONOCYTES (test code = 742-7) 720 cells/uL ABSOLUTE EOSINOPHILS (test code = 711-2) 140 cells/uL ABSOLUTE BASOPHILS (test code = 704-7) 40 cells/uL ABSOLUTE BLASTS (test code = 09623-6) DNR cells/uL ABSOLUTE NUCLEATED RBC (test code = 77591-2) DNR cells/uL NEUTROPHILS (test code = 770-8) 57.4 % BAND NEUTROPHILS (test code = 764-1) DNR % METAMYELOCYTES (test code = 740-1) DNR % MYELOCYTES (test code = 749-2) DNR % PROMYELOCYTES (test code = 783-1) DNR % LYMPHOCYTES (test code = 736-9) 33.6 % REACTIVE LYMPHOCYTES (test code = 13289-9) DNR % MONOCYTES (test code = 5905-5) 7.2 % EOSINOPHILS (test code = 713-8) 1.4 % BASOPHILS (test code = 706-2) 0.4 % BLASTS (test code = 709-6) DNR % NUCLEATED RBC (test code = 64130-9) DNR /100WBC COMMENT(S) (test code = 8251-1) DNR Ye McneilTSH W/REFLEX TO [id number] 00:00:00* Test Item Value Reference Range Interpretation Comme nts TSH W/REFLEX TO FT4 (test co de = 3016-3) 2.67 mIU/L Ye McneilCT Abdomen pelvis w [id number] 02:44:24Exam: CT Abdomen and Pelvis With Contrast, 03/09/2025 8:15 PM. Ordering Physician: BEN WATSON. History: Nausea/vomiting. ?Abdominal pain, acute, nonlocalized. Comparison: None. Technique: CT abdomen and pelvis was obtained with intravenous contrast. CT was performed according to ALARA (As Low As Reasonably Achievable). Technical Quality: Adequate. Findings: CT Abdomen:Lower Thorax: Lung bases are clear. Heart size is normal. Organs: Liver, pancreas, spleen, and adrenal glands are normal.Biliary Tree: Gallbladder is normal. There is no pancreatic or biliary ductdilatation. Urinary Tract: Kidneys are symmetric in size. There is no hydronephrosis orhydroureter. Peritoneal/Retroperitoneal: There is no free air or free fluid. Lymph Nodes: There is no abdominal adenopathy. Vascular: Unremarkable.Body Wall: Unremarkable. Gastrointestinal: Stomach is moderately distended with fluid and gas. Smallbowel loops are nondilated. ?There is diffuse small bowel mucosal foldthickening. There is no evidence of bowel obstruction. Appendix is normal.There is diffuse colonic wall thickening. Osseous: Un remarkable. CT Pelvis:Genitourinary: Urinary bladder is unremarkable. Uterus and adnexa are notenlarged. Peritoneal/Extraperitoneal: There is no pelvic free fluid. ?There is nopelvic adenopathy. Osseous/Soft Tissues: Unremarkable. [facility] with [id number] 01:23:07* Test Item Value Reference Range Interpretation Comme nts WBC (test code = 6690-2) 21.71 4.30-11.10 H RBC (test code = 789-8) 4.76 3.93-5.25 HGB (test code = 718-7) 14.6 g/dL 11.6-15.0 HCT (test code = 4544-3) 42.1 % 35.7-45.2 MCV (test code = 787-2) 88.4 fL 80.6-95.5 MCH (test code = 785-6) 30.7 pg 25.9-32.8 MCHC (test code = 786-4) 34.7 g/dL 31.6-35.1 RDW-SD (test code = 56901-8) 42.6 fL 39.0-49.9 RDW-CV (test code = 788-0) 13.2 % 12.0-15.5 PLT (test code = 777-3) 414 166-358 H MPV (test code = 13064-6) 10 fL 9.5-12.9 NRBC/100 WBC (test code = 4113261502) 0 0.0-10.0 NRBC x10^3 (test code = 6159652161) See_Comment [Automated message] The system which generated this result transmitted reference range: 10*3/?L. The reference range was not used to interpret this result as normal/abnormal. GRAN MAT (NEUT) % (test code = 770-8) 94.6 % IMM GRAN % (test code = 5929431881) 0.6 % LYMPH % (test code = 736-9) 3.5 % MONO % (test code = 5905-5) 1.2 % EOS % (test code = 713-8) 0 % BASO % (test code = 706-2) 0.1 % GRAN MAT x10^3(ANC) (test code = 3147072077) 20.52 10*3/uL 1.88-7.09 H IMM GRAN x10^3 (test code = 1432339709) 0.12 10*3/uL 0.00-0.06 H LYMPH x10^3 (test code = 731-0) 0.77 10*3/uL 1.32-3.29 L MONO x10^3 (test code = 742-7) 0.27 10*3/uL 0.33-0.92 L EOS x10^3 (test code = 711-2) 0.03-0.39 L BASO x10^3 (test code = 704-7) 0.03 10*3/uL 0.01-0.07 Lab Interpretation (test code = 95022-5) Abnormal [facility] HospitalLipase, [id number] 01:20:05* Test Item Value Reference Range Interpretation Comme nts LIPASE (test code = 0373674388) 39 U/L 0-220 Lab Interpretation (test cod e = 99891-4) Normal [facility] HospitalComplete Metabolic [id number] 00:52:43* Test Item Value Reference Range Interpretation Comme nts NA (test code = 2273650747) 139 mmol/L 135-145 K (test code = 2288011360) 4.3 mmol/L 3.5-5.0 CL (test code = 5149979843) 103 mmol/L 98-108 CO2 TOTAL (test code = 7017074612) 20 mmol/L 23-31 L AGAP (test code = 1252741397) 16 2-16 BUN (test code = 3825222751) 19 mg/dL 7-23 GLUCOSE (test code = 1550697473) 142 mg/dL 70-110 H CREATININE (test code = 2160-0) 0.58 mg/dL 0.50-1.04 TOTAL BILI (test code = 2239484605) 0.9 mg/dL 0.1-1.1 CALCIUM (test code = 3417005585) 10.2 mg/dL 8.6-10.6 T PROTEIN (test code = 2892323897) 9 g/dL 6.3-8.2 H ALBUMIN (test code = 5862498410) 5.2 g/dL 3.5-5.0 H ALK PHOS (test code = 8402201685) 108 U/L 34-122 ALTv (test code = 1742-6) 26 U/L 5-35 AST(SGOT) (test code = 4640367327) 17 U/L 13-40 eGFR (test code = 99157-6) 133.9 mL/min/1.73m2 CKD-EPI eGFR (2020). Assuming creatinine has been stable day-to-day for at least three months, the eGFR indicates Category G1 (>= 90 mL/min/1.73 m2) Lab Interpretation (test code = 26486-7) Abnormal [facility] HospitalPOCT [id number] 00:34:00* Test Item Value Reference Range Interpretation Comme nts POCT PREG (test code = 1605) Negative On board controls acceptable with C Line (test code = 3574) Yes POCT PREG LOT # (test code = 3575) [id number] POCT PREG TEST DATE ( test code = 3576) 2026-05-31 Lab Interpretation (test cod e = 42279-5) Normal [facility] WITH [id number] 17:28:22* Test Item Value Reference Range Interpretation Comme nts WBC (test code = 6690-2) 18.13 4.30-11.10 H RBC (test code = 789-8) 4.67 3.93-5.25 HGB (test code = 718-7) 14.5 g/dL 11.6-15.0 HCT (test code = 4544-3) 41.4 % 35.7-45.2 MCV (test code = 787-2) 88.7 fL 80.6-95.5 MCH (test code = 785-6) 31.0 pg 25.9-32.8 MCHC (test code = 786-4) 35.0 g/dL 31.6-35.1 RDW-SD (test code = 52376-2) 42.1 fL 39.0-49.9 RDW-CV (test code = 788-0) 13.0 % 12.0-15.5 PLT (test code = 777-3) 294 166-358 MPV (test code = 24345-1) 10.5 fL 9.5-12.9 NRBC/100 WBC (test code = 1386545421) 0.0 0.0-10.0 NRBC x10^3 (test code = 1198743441) See_Comment [Automated message] The system which generated this result transmitted reference range: 10*3/?L. The reference range was not used to interpret this result as normal/abnormal. GRAN MAT (NEUT) % (test code = 770-8) 83.8 % IMM GRAN % (test code = 9686525806) 0.40 % LYMPH % (test code = 736-9) 11.1 % MONO % (test code = 5905-5) 4.2 % EOS % (test code = 713-8) 0.3 % BASO % (test code = 706-2) 0.2 % GRAN MAT x10^3(ANC) (test code = 2111308915) 15.20 10*3/uL 1.88-7.09 H IMM GRAN x10^3 (test code = 2919103928) 0.08 10*3/uL 0.00-0.06 H LYMPH x10^3 (test code = 731-0) 2.01 10*3/uL 1.32-3.29 MONO x10^3 (test code = 742-7) 0.76 10*3/uL 0.33-0.92 EOS x10^3 (test code = 711-2) 0.05 10*3/uL 0.03-0.39 BASO x10^3 (test code = 704-7) 0.03 10*3/uL 0.01-0.07 ELLIPTO/OVAL (test code = 19157-7) 2+ See_Comment A [Automated message] The system which generated this result transmitted reference range: (none). The reference range was not used to interpret this result as normal/abnormal. SPHEROCYTES (test code = 802-9) 1+ A BANDS (test code = 4417656392) Increased A TOXIC CHANGES (test code = 803-7) Present A GIANT PLATELETS (test code = 5908-9) Present See_Comment A [Automated message] The system which generated this result transmitted reference range: (none). The reference range was not used to interpret this result as normal/abnormal. Lab Interpretation (test code = 38382-9) Abnormal [facility] HospitalCOMP. METABOLIC PANEL (09792)2024-09-18 16:39:32* Test Item Value Reference Range Interpretation Comme nts NA (test code = 2128286954) 139 mmol/L 135-145 K (test code = 6263011971) 3.5 mmol/L 3.5-5.0 CL (test code = 0381441622) 106 mmol/L 98-108 CO2 TOTAL (test code = 9078946275) 23 mmol/L 23-31 AGAP (test code = 7450076790) 10 2-16 BUN (test code = 0926184460) 13 mg/dL 7-23 GLUCOSE (test code = 4034552142) 125 mg/dL 70-110 H CREATININE (test code = 2160-0) 0.80 mg/dL 0.50-1.04 TOTAL BILI (test code = 0110993101) 0.6 mg/dL 0.1-1.1 CALCIUM (test code = 5041816844) 9.3 mg/dL 8.6-10.6 T PROTEIN (test code = 6414808560) 7.7 g/dL 6.3-8.2 ALBUMIN (test code = 1920923997) 4.6 g/dL 3.5-5.0 ALK PHOS (test code = 2810454681) 97 U/L 34-122 ALTv (test code = 1742-6) 20 U/L 5-35 AST(SGOT) (test code = 8387313747) 18 U/L 13-40 eGFR (test code = 21824-4) 109.0 mL/min/1.73m2 CKD-EPI eGFR (2020). Assuming creatinine has been stable day-to-day for at least three months, the eGFR indicates Category G1 (>= 90 mL/min/1.73 m2) Lab Interpretation (test code = 32216-2) Abnormal [facility] HospitalLIPASE2024-11-11 16:39:11* Test Item Value Reference Range Interpretation Comme nts LIPASE (test code = 0240309661) 194 U/L 0-220 Lab Interpretation (test cod e = 91598-6) Normal [facility] HospitalCT ABDOMEN PELVIS W [id number] 07:49:08ABDOMEN AND PELVIS CT WITH INTRAVENOUS CONTRAST. [...] degenerative changes in the spine and pelvis. [facility] WITH [id number] 05:22:25* Test Item Value Reference Range Interpretation [...] g/dL 31.6-35.1 H RDW-SD (test code = 89418-2) 42.4 fL 39.0-49.9 RDW-CV (test code = 788-0) 13.0 % 12.0-15.5 PLT (test code = 777-3) 286 166-358 MPV (test code = 58366-0) 10.8 fL 9.5-12.9 NRBC/100 WBC (test code = 8613998225) 0.0 0.0-10.0 NRBC x10^3 (test code = 4866175209) See_Comment [Automated message] The system which generated this result transmitted reference range: 10*3/?L. The reference range was not used to interpret this result as normal/abnormal. GRAN MAT (NEUT) % (test code = 770-8) 86.7 % IMM GRAN % (test code = 3879147620) 0.70 % LYMPH % (test code = 736-9) 9.6 % MONO % (test code = 5905-5) 2.6 % EOS % (test code = 713-8) 0.1 % BASO % (test code = 706-2) 0.3 % GRAN MAT x10^3(ANC) (test code = 4884594004) 15.45 10*3/uL 1.88-7.09 H IMM GRAN x10^3 (test code = 7254415370) 0.13 10*3/uL 0.00-0.06 H LYMPH x10^3 (test code = 731-0) 1.71 10*3/uL 1.32-3.29 MONO x10^3 (test code = 742-7) 0.46 10*3/uL 0.33-0.92 EOS x10^3 (test code = 711-2) 0.03-0.39 L BASO x10^3 (test code = 704-7) 0.05 10*3/uL 0.01-0.07 Lab Interpretation (test code = 42659-1) Abnormal [facility] HospitalEthanol2024-11-10 05:09:44 ALCOHOL<10mg/dL09/16/2024 11:09 [facility] Ghvucywg30-638 Toxic>100 Depression of LEATHER STAKER>400 Fatalities ReportedUnSt. Luke's Baptist HospitalBASI METABOLIC PANEL (NA, K, CL, CO2, GLUCOSE, BUN, CREATININE, CA)2024-09-17 05:05:58* Test Item Value Reference Range Interpretation Comme nts NA (test code = 1198154907) 140 mmol/L 135-145 K (test code = 8490814064) 3.5 mmol/L 3.5-5.0 CL (test code = 9189019206) 108 mmol/L 98-108 CO2 TOTAL (test code = 6328224179) 21 mmol/L 23-31 L AGAP (test code = 7389637854) 11 2-16 BUN (test code = 6352427317) 13 mg/dL 7-23 GLUCOSE (test code = 6695483738) 126 mg/dL 70-110 H CREATININE (test code = 2160-0) 0.56 mg/dL 0.50-1.04 CALCIUM (test code = 5657807408) 9.5 mg/dL 8.6-10.6 eGFR (test code = 23959-1) 135.0 mL/min/1.73m2 CKD-EPI eGFR (2020). Assuming creatinine has been stable day-to-day for at least three months, the eGFR indicates Category G1 (>= 90 mL/min/1.73 m2) Lab Interpretation (test code = 56147-1) Abnormal [facility] HospitalHEPATIC FUNCTION PANEL (63945) (ALB,T.PRO,BILI T,BU/BC,ALT,AST,ALK PHOS)2024-09-17 05:05:58* Test Item Value Reference Range Interpretation Comme nts TOTAL BILI (test code = 9898045220) 0.5 mg/dL 0.1-1.1 BILI UNCON (test code = 4937878106) 0.5 mg/dL 0.1-1.1 BILI CONJ (test code = 0379246848) 0.0 mg/dL 0.0-0.3 T PROTEIN (test code = 8471855100) 7.7 g/dL 6.3-8.2 ALBUMIN (test code = 1679720188) 4.8 g/dL 3.5-5.0 ALK PHOS (test code = 0828066523) 105 U/L 34-122 ALTv (test code = 1742-6) 18 U/L 5-35 AST(SGOT) (test code = 4199181761) 15 U/L 13-40 Lab Interpretation (test cod e = 24448-4) Normal [facility] HospitalLIPASE2024-11-10 05:05:58* Test Item Value Reference Range Interpretation Comme nts LIPASE (test code = 9635625109) 39 U/L 0-220 Lab Interpretation (test cod e = 68282-8) Normal [facility] HospitalHEMOGLOBIN [id number] 03:41:55* Test Item Value Reference Range Interpretation Comme nts HEMOGLOBIN A1c (test code = 46040) 5.2 % 4.2-5.6 LIPID [id number] 03:01:24* Test Item Value Reference Range Interpretation [...] SPECIMENS. FOR MOREINFORMATION, SEE CLIENT ANNOUNCEMENT AT [email or web address] RISK RATIO LDL/HDL (test code = 2237) 1.13 RATIO <3.22 COMPREHENSIVE METABOLIC [id number] 03:01:24* Test Item Value Reference Range Interpretation Comme nts GLUCOSE (test code = 2216) 96 MG/DL 70-99 BUN (test code = 2207) 11 MG/DL 6-20 CREATININE (test code = 2213) 0.89 MG/DL 0.50-1.10 eGFR (2020 CKD-EPI) (test code = 27061) NO CALC ML/MIN/1.73 >60 NOTE: 2020 CKD-EPI [...] MEQ/L 95-107 CARBON DIOXIDE (test code = 6) 24 MEQ/L 19-31 CALCIUM (test code = 220) 9.7 MG/DL 8.5-10.5 PROTEIN, TOTAL (test code = 2228) 7.1 G/DL 6.1-8.3 ALBUMIN (test code = 2200) 4.7 G/DL 3.5-5.2 CALC GLOBULIN (test code = 2240) 2.4 G/DL 2.1-3.7 CALC A/G RATIO (test code = 2233) 2.0 RATIO 1.0-2.6 BILIRUBIN, TOTAL (test code = 2206) 0.5 MG/DL <=1.2 ALKALINE PHOSPHATASE (test code = 2203) 106 U/L 45-126 AST (test code = 8) 8 U/L 9-40 L ALT (test code = 2219) 8 U/L 5-40 TSH, THIRD [id number] 03:00:21* Test Item Value Reference Range Interpretation Comme nts TSH, THIRD GENERATION (test code = 2821) 1.090 UIU/ML 0.400-4.100 UNLESS OTHERWISE INDICATED, ALL TESTING PERFORMED AT [facility] [address] [place] [address] TOURIST AGENT: SWATHI KERR M.D. CLIA NUMBER [id number] [facility]. [id number] CBC W/AUTO DIFF WITH [id number] 02:18:02* Test Item Value Reference Range Interpretation [...] 0.00-0.10 ABS NUCLEATED RBCS (test code = 71818) 0.00 K/UL 0.00-0.11 COMPREHENSIVE METABOLIC [id number] 00:00:00* Test Item Value Reference Range Interpretation Comme nts GLUCOSE (test code = 2217) 96 MG/DL BUN (test code = 2208) 11 MG/DL CREATININE (test code = 2214) 0.89 MG/DL eGFR (2020 CKD-EPI) (test code = 43199) NO CALC ML/MIN/1.73 CALC BUN/CREAT (test code [...] (test code = 2219) 8 U/L Ye Toney, THIRD [id number] 00:00:00* Test Item Value Reference Range Interpretation Comme nts TSH, THIRD GENERATION (test code = 2821) 1.090 UIU/ML Ye McneilCBC W/AUTO [id number] 00:00:00* Test Item Value Reference Range Interpretation [...] ABS NUCLEATED RBCS (test cod e = 70258) 0.00 K/UL Ye McneilHEMOGLOBIN [id number] 00:00:00* Test Item Value Reference Range Interpretation Comme nts HEMOGLOBIN A1c (test code = 17963) 5.2 % Ye McneilLIPID [id number] 00:00:00* Test Item Value Reference Range Interpretation Comme nts CHOLESTEROL (test code = 2210) 133 MG/DL TRIGLYCERIDES (test code = 2232) 84 MG/DL HDL CHOLESTEROL (test code = 2220) 55 MG/DL CALC LDL CHOL (test code = 2237) 62 MG/DL RISK RATIO LDL/HDL (test cod e = 2238) 1.13 RATIO Ye McneilCOMPREHENSIVE METABOLIC [id number] 00:00:00* Test Item Value Reference Range Interpretation Comme nts GLUCOSE (test code = 2217) 96 MG/DL BUN (test code = 2208) 11 MG/DL CREATININE (test code = 2214) 0.89 MG/DL eGFR (2020 CKD-EPI) (test code = 40644) NO CALC ML/MIN/1.73 CALC BUN/CREAT (test code [...] (test code = 2219) 8 U/L Ye Toney, THIRD [id number] 00:00:00* Test Item Value Reference Range Interpretation Comme nts TSH, THIRD GENERATION (test code = 2821) 1.090 UIU/ML Ye McneilCBC W/AUTO [id number] 00:00:00* Test Item Value Reference Range Interpretation [...] ABS NUCLEATED RBCS (test cod e = 10532) 0.00 K/UL Ye McneilHEMOGLOBIN [id number] 00:00:00* Test Item Value Reference Range Interpretation Comme nts HEMOGLOBIN A1c (test code = 96978) 5.2 % Ye McneilLIPID [id number] 00:00:00* Test Item Value Reference Range Interpretation Comme nts CHOLESTEROL (test code = 2210) 133 MG/DL TRIGLYCERIDES (test code = 2232) 84 MG/DL HDL CHOLESTEROL (test code = 2220) 55 MG/DL CALC LDL CHOL (test code = 2237) 62 MG/DL RISK RATIO LDL/HDL (test cod e = 2238) 1.13 RATIO Ye McneilCOMPREHENSIVE METABOLIC [id number] 00:00:00* Test Item Value Reference Range Interpretation Comme nts GLUCOSE (test code = 2217) 96 MG/DL BUN (test code = 2208) 11 MG/DL CREATININE (test code = 2214) 0.89 MG/DL eGFR (2020 CKD-EPI) (test code = 39814) NO CALC ML/MIN/1.73 CALC BUN/CREAT (test code [...] = 2219) 8 U/L Ye MckenzieH, THIRD [id number] 00:00:00* Test Item Value Reference Range Interpretation Comme nts TSH, THIRD GENERATION (test code = 2821) 1.090 UIU/ML Ye McneilCBC W/AUTO [id number] 00:00:00* Test Item Value Reference Range Interpretation [...] ABS NUCLEATED RBCS (test cod e = 91907) 0.00 K/UL Ye McneilHEMOGLOBIN [id number] 00:00:00* Test Item Value Reference Range Interpretation Comme nts HEMOGLOBIN A1c (test code = 75170) 5.2 % Ye McneilLIPID [id number] 00:00:00* Test Item Value Reference Range Interpretation Comme nts CHOLESTEROL (test code = 2210) 133 MG/DL TRIGLYCERIDES (test code = 2232) 84 MG/DL HDL CHOLESTEROL (test code = 2220) 55 MG/DL CALC LDL CHOL (test code = 2237) 62 MG/DL RISK RATIO LDL/HDL (test cod e = 2238) 1.13 RATIO Ye McneilXR HAND 3+ VW [id number] 00:17:06Ordering Physician: YOLANDA YATES HISTORY: pain TECHNIQUE: Frontal, lateral and oblique views of the right hand COMPARISON: none FINDINGS: There is no fracture or dislocation. ? There are no erosions. The softtissues are unremarkable.[facility] HospitalCT ABDOMEN PELVIS W [id number] 15:43:50CT ABDOMEN PELVIS W CONTRAST CLINICAL INDICATION: [...] Imaged osseous and soft tissue structures are normal.[facility] WITH [id number] 14:53:05* Test Item Value Reference Range Interpretation [...] 34.7 g/dL 32.0-36.0 RDW-SD (test code = 39211-0) 41.6 fL 38.5-49.0 RDW-CV (test code = 788-0) 12.8 % 11.5-14.0 PLT (test code = 777-3) 258 See_Comment [Automated message] The system which generated this result transmitted reference range: 135 - 361 10*3/?L. The reference range was not used to interpret this result as normal/abnormal. MPV (test code = 77160-1) 10.4 fL 9.4-13.3 NRBC/100 WBC (test code = 2315657696) 0.0 See_Comment [Automated message] The system which generated this result transmitted reference range: 0.0 - 10.0 /100 WBCs. The reference range was not used to interpret this result as normal/abnormal. NRBC x10^3 (test code = 9150509177) See_Comment [Automated message] The system which generated this result transmitted reference range: 10*3/?L. The reference range was not used to interpret this result as normal/abnormal. GRAN MAT (NEUT) % (test code = 770-8) 78.7 % IMM GRAN % (test code = 1854869181) 0.60 % LYMPH % (test code = 736-9) 15.4 % MONO % (test code = 5905-5) 4.8 % EOS % (test code = 713-8) 0.2 % BASO % (test code = 706-2) 0.3 % GRAN MAT x10^3(ANC) (test code = 1260266146) 18.22 10*3/uL 1.50-10.30 H IMM GRAN x10^3 (test code = 3805301914) 0.15 10*3/uL 0.00-0.06 H LYMPH x10^3 (test code = 731-0) 3.56 10*3/uL 0.70-7.40 MONO x10^3 (test code = 742-7) 1.12 10*3/uL 0.00-0.50 H EOS x10^3 (test code = 711-2) 0.05 10*3/uL 0.00-0.40 BASO x10^3 (test code = 704-7) 0.06 10*3/uL 0.00-0.10 Lab Interpretation (test code = 58245-0) Abnormal [facility] HospitalCOMP. METABOLIC PANEL (01084)2023-12-03 14:16:40* Test Item Value Reference Range Interpretation Comme nts NA (test code = 8549843871) 140 mmol/L 135-145 K (test code = 4860543610) 3.4 mmol/L 3.5-5.0 L CL (test code = 9065466575) 111 mmol/L 98-108 H CO2 TOTAL (test code = 5427013100) 17 mmol/L 23-31 L AGAP (test code = 5236302642) 12 2-16 BUN (test code = 9412945821) 13 mg/dL 7-23 GLUCOSE (test code = 2860151326) 126 mg/dL 70-110 H CREATININE (test code = 6877678701) 0.57 mg/dL 0.50-1.04 TOTAL BILI (test code = 4834030091) 0.6 mg/dL 0.1-1.1 CALCIUM (test code = 8247743932) 9.4 mg/dL 8.6-10.6 T PROTEIN (test code = 4292357647) 7.2 g/dL 6.3-8.2 ALBUMIN (test code = 2782356838) 4.3 g/dL 3.5-5.0 ALK PHOS (test code = 4189784886) 112 U/L 34-122 ALTv (test code = 1742-6) 16 U/L 5-35 AST(SGOT) (test code = 0670213155) 16 U/L 13-40 eGFR (test code = 81030-1) 135.3 mL/min/1.73m2 CKD-EPI eGFR (2020). Assuming creatinine has been stable day-to-day for at least three months, the eGFR indicates Category G1 (>= 90 mL/min/1.73 m2) Lab Interpretation (test code = 49008-6) Abnormal [facility] HospitalLIPASE2024-01-26 14:16:19* Test Item Value Reference Range Interpretation Comme nts LIPASE (test code = 5393517378) 110 U/L 0-220 Lab Interpretation (test cod e = 91178-1) Normal [facility] HospitalPOCT [id number] 13:42:00* Test Item Value Reference Range Interpretation Comme nts POCT PREG (test code = 1605) Negative On board controls acceptable with C Line (test code = 3574) Yes POCT PREG LOT # (test code = 3575) [id number] POCT PREG TEST DATE ( test code = 3576) 02/13/2025 Lab Interpretation (test cod e = 52886-0) Normal [facility] HospitalVAGINAL PATHOGENS DNA [id number] 15:59:03 * Test Item Value Reference Range Interpretation Comme nts JENNIFER SPECIES (test code = 93379) NEGATIVE NEGATIVE G. VAGINALIS (test code = 81616) POSITIVE NEGATIVE A T. VAGINALIS (test code = 60738) NEGATIVE NEGATIVE UNLESS OTHERWISE INDICATED, ALL TESTING PER[facility]MED [facility] [address] [place] [address] TOURIST AGENT: ZACK CHEN M.D. CLIA NUMBER [id number] [facility] [id number] VAGINAL PATHOGENS DNA [id number] 00:00:00* Test Item Value Reference Range Interpretation Comme nts JENNIFER SPECIES (test code = ) NEGATIVE G. VAGINALIS (test code = 09256) POSITIVE T. VAGINALIS (test code = 45613) NEGATIVE Ye Gamboa AustinVAGINAL PATHOGENS DNA [id number] 00:00:00* Test Item Value Reference Range Interpretation Comme nts JENNIFER SPECIES (test code = 79686) NEGATIVE G. VAGINALIS (test code = 45508) POSITIVE T. VAGINALIS (test code = 39243) NEGATIVE Ye Gamboa AustinVAGINAL PATHOGENS DNA [id number] 00:00:00* Test Item Value Reference Range Interpretation Comme nts JENNIFER SPECIES (test code = 95319) NEGATIVE G. VAGINALIS (test code = 70133) POSITIVE T. VAGINALIS (test code = 92224) NEGATIVE Ye Gamboa AustinVAGINAL PATHOGENS DNA [id number] 00:00:00* Test Item Value Reference Range Interpretation Comme nts JENNIFER SPECIES (test code = 06988) NEGATIVE G. VAGINALIS (test code = 29573) POSITIVE T. VAGINALIS (test code = 50765) NEGATIVE VAGINAL PATHOGENS DNA [id number] 00:00:00* Test Item Value Reference Range Interpretation Comme nts JENNIFER SPECIES (test code = 98527) NEGATIVE G. VAGINALIS (test code = 62103) POSITIVE T. VAGINALIS (test code = 93801) NEGATIVE VAGINAL PATHOGENS DNA [id number] 00:00:00* Test Item Value Reference Range Interpretation Comme nts JENNIFER SPECIES (test code = 96275) NEGATIVE G. VAGINALIS (test code = 11938) POSITIVE T. VAGINALIS (test code = 23453) NEGATIVE Ye [place] [id number] (COVID-19) by RT-PCR (HIGH RISK)2020-11-28 00:00:00* Test Item Value Reference Range Interpretation Comme nts SARS-CoV-2 INTERPRETATION (t est code = 67749) NEGATIVE SOURCE (test code = 35082) NOT SPECIFIED Ye [place] [id number] (COVID-19) by RT-PCR (HIGH RISK)2020-11-28 00:00:00* Test Item Value Reference Range Interpretation Comme nts SARS-CoV-2 INTERPRETATION (t est code = 67291) NEGATIVE SOURCE (test code = 14322) NOT SPECIFIED Ye [place] [id number] (COVID-19) by RT-PCR (HIGH RISK)2020-11-28 00:00:00* Test Item Value Reference Range Interpretation Comme nts SARS-CoV-2 INTERPRETATION (t est code = 92964) NEGATIVE SOURCE (test code = 36097) NOT SPECIFIED SARS-CoV-2 (COVID-19) by RT-PCR (HIGH RISK)2020-11-28 00:00:00* Test Item Value Reference Range Interpretation Comme nts SARS-CoV-2 INTERPRETATION (t est code = 31906) NEGATIVE SOURCE (test code = 33202) NOT SPECIFIED Ye McneilSARS-CoV-2 (COVID-19) by RT-PCR (HIGH RISK)2020-11-28 00:00:00* Test Item Value Reference Range Interpretation Comme nts SARS-CoV-2 INTERPRETATION (t est code = 25755) NEGATIVE SOURCE (test code = 49415) NOT SPECIFIED SARS-CoV-2 (COVID-19) by RT-PCR (HIGH RISK)2020-11-28 00:00:00* Test Item Value Reference Range Interpretation Comme nts SARS-CoV-2 INTERPRETATION (t est code = 36987) NEGATIVE SOURCE (test code = 55572) NOT SPECIFIED SARS-CoV-2 (COVID-19) by RT-PCR (HIGH RISK)2020-11-28 00:00:00* Test Item Value Reference Range Interpretation Comme nts SARS-CoV-2 INTERPRETATION (t est code = 86469) NEGATIVE SOURCE (test code = 28632) NOT SPECIFIED Ye [place] [id number] 00:00:00* Test Item Value Reference Range Interpretation Comme nts TSH, THIRD GENERATION (test code = 2821) 2.270 UIU/ML Ye Bee TarunCBC W/AUTO [id number] 00:00:00* Test Item Value Reference Range Interpretation [...] code = 1015) 249 K/UL Ye McneilLIPID [id number] 00:00:00* Test Item Value Reference Range Interpretation Comme nts CHOLESTEROL (test code = 2210) 112 MG/DL TRIGLYCERIDES (test code = 2232) 143 MG/DL HDL CHOLESTEROL (test code = 2220) 34 MG/DL CALC LDL CHOL (test code = 2237) 49 MG/DL RISK RATIO LDL/HDL (test cod e = 2238) 1.45 RATIO Ye McneilCOMPREHENSIVE METABOLIC [id number] 00:00:00* Test Item Value Reference Range Interpretation Comme nts GLUCOSE (test code = 2217) 89 MG/DL BUN (test code = 2208) 11 MG/DL CREATININE (test code = 2214) 0.64 MG/DL eGFR AMER. (test code = 38042) (NOTE) ML/MIN/1.73 eGFR NON- AMER. (test code = 43351) NO CALC ML/MIN/1.73 CALC BUN/CREAT (test code [...] (test code = 2219) 14 U/L Ye [id number] 00:00:00* Test Item Value Reference Range Interpretation Comme nts TSH, THIRD GENERATION (test code = 2821) 2.270 UIU/ML Yeedgar McneilCBC W/AUTO [id number] 00:00:00* Test Item Value Reference Range Interpretation [...] code = 1015) 249 K/UL Ye McneilLIPID [id number] 00:00:00* Test Item Value Reference Range Interpretation Comme nts CHOLESTEROL (test code = 2210) 112 MG/DL TRIGLYCERIDES (test code = 2232) 143 MG/DL HDL CHOLESTEROL (test code = 2220) 34 MG/DL CALC LDL CHOL (test code = 2237) 49 MG/DL RISK RATIO LDL/HDL (test cod e = 2238) 1.45 RATIO Ye McneilCOMPREHENSIVE METABOLIC [id number] 00:00:00* Test Item Value Reference Range Interpretation Comme nts GLUCOSE (test code = 2217) 89 MG/DL BUN (test code = 2208) 11 MG/DL CREATININE (test code = 2214) 0.64 MG/DL eGFR AMER. (test code = 96914) (NOTE) ML/MIN/1.73 eGFR NON- AMER. (test code = 91340) NO CALC ML/MIN/1.73 CALC BUN/CREAT (test code [...] (test code = 2219) 14 U/L Ye [id number] 00:00:00* Test Item Value Reference Range Interpretation Comme nts TSH, THIRD GENERATION (test code = 2821) 2.270 UIU/ML Ye McneilCBC W/AUTO [id number] 00:00:00* Test Item Value Reference Range Interpretation [...] (test code = 1015) 249 K/UL Ye McneilCBC W/AUTO [id number] 00:00:00* Test Item Value Reference Range Interpretation [...] (test code = 1015) 249 K/UL LIPID [id number] 00:00:00* Test Item Value Reference Range Interpretation Comme nts CHOLESTEROL (test code = 2210) 112 MG/DL TRIGLYCERIDES (test code = 2232) 143 MG/DL HDL CHOLESTEROL (test code = 2220) 34 MG/DL CALC LDL CHOL (test code = 2237) 49 MG/DL RISK RATIO LDL/HDL (test cod e = 2238) 1.45 RATIO Ye F AustinLIPID [id number] 00:00:00* Test Item Value Reference Range Interpretation Comme nts CHOLESTEROL (test code = 2210) 112 MG/DL TRIGLYCERIDES (test code = 2232) 143 MG/DL HDL CHOLESTEROL (test code = 2220) 34 MG/DL CALC LDL CHOL (test code = 2237) 49 MG/DL RISK RATIO LDL/HDL (test cod e = 2238) 1.45 RATIO COMPREHENSIVE METABOLIC [id number] 00:00:00* Test Item Value Reference Range Interpretation Comme nts GLUCOSE (test code = 2217) 89 MG/DL BUN (test code = 2208) 11 MG/DL CREATININE (test code = 2214) 0.64 MG/DL eGFR AMER. (test code = 04512) (NOTE) ML/MIN/1.73 eGFR NON- AMER. (test code = 53450) NO CALC ML/MIN/1.73 CALC BUN/CREAT (test code [...] (test code = 2219) 14 U/L Ye McneilCOMPREHENSIVE METABOLIC [id number] 00:00:00* Test Item Value Reference Range Interpretation Comme nts GLUCOSE (test code = 2217) 89 MG/DL BUN (test code = 2208) 11 MG/DL CREATININE (test code = 2214) 0.64 MG/DL eGFR AMER. (test code = 16466) (NOTE) ML/MIN/1.73 eGFR NON- AMER. (test code = 96932) NO CALC ML/MIN/1.73 CALC BUN/CREAT (test code [...] ALT (test code = 2219) 14 U/L [id number] 00:00:00* Test Item Value Reference Range Interpretation Comme nts TSH, THIRD GENERATION (test code = 2821) 2.270 UIU/ML Ye [id number] 00:00:00* Test Item Value Reference Range Interpretation Comme nts TSH, THIRD GENERATION (test code = 2821) 2.270 UIU/ML CBC W/AUTO [id number] 00:00:00* Test Item Value Reference Range Interpretation [...] (test code = 1015) 249 K/UL LIPID [id number] 00:00:00* Test Item Value Reference Range Interpretation Comme nts CHOLESTEROL (test code = 2210) 112 MG/DL TRIGLYCERIDES (test code = 2232) 143 MG/DL HDL CHOLESTEROL (test code = 2220) 34 MG/DL CALC LDL CHOL (test code = 2237) 49 MG/DL RISK RATIO LDL/HDL (test cod e = 2238) 1.45 RATIO COMPREHENSIVE METABOLIC [id number] 00:00:00* Test Item Value Reference Range Interpretation Comme nts GLUCOSE (test code = 2217) 89 MG/DL BUN (test code = 2208) 11 MG/DL CREATININE (test code = 2214) 0.64 MG/DL eGFR AMER. (test code = 81388) (NOTE) ML/MIN/1.73 eGFR NON- AMER. (test code = 99509) NO CALC ML/MIN/1.73 CALC BUN/CREAT (test code [...] ALT (test code = 2219) 14 U/L [id number] 00:00:00* Test Item Value Reference Range Interpretation Comme nts TSH, THIRD GENERATION (test code = 2821) 2.270 UIU/ML CBC W/AUTO [id number] 00:00:00* Test Item Value Reference Range Interpretation [...] (test code = 1015) 249 K/UL LIPID [id number] 00:00:00* Test Item Value Reference Range Interpretation Comme nts CHOLESTEROL (test code = 2210) 112 MG/DL TRIGLYCERIDES (test code = 2232) 143 MG/DL HDL CHOLESTEROL (test code = 2220) 34 MG/DL CALC LDL CHOL (test code = 2237) 49 MG/DL RISK RATIO LDL/HDL (test cod e = 2238) 1.45 RATIO COMPREHENSIVE METABOLIC [id number] 00:00:00* Test Item Value Reference Range Interpretation Comme nts GLUCOSE (test code = 2217) 89 MG/DL BUN (test code = 2208) 11 MG/DL CREATININE (test code = 2214) 0.64 MG/DL eGFR AMER. (test code = 09230) (NOTE) ML/MIN/1.73 eGFR NON- AMER. (test code = 71550) NO CALC ML/MIN/1.73 CALC BUN/CREAT (test code [...] ALT (test code = 2219) 14 U/L [id number] 00:00:00* Test Item Value Reference Range Interpretation Comme nts TSH, THIRD GENERATION (test code = 2821) 2.270 UIU/ML CBC W/AUTO [id number] 00:00:00* Test Item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
[2025-08-06] MEDS ORDERED: NA CHLORIDE 0.9% 1,000 ML ONE (20:07)
[2025-08-06] MEDS ORDERED: ONDANSETRON 4 MG/2 ML VIAL ONE (20:07)
[2025-08-06 20:18] LABS: Absolute Lymphocytes (CBC) 3.0 K/uL (0.7-4.9); Hematocrit 41.2 % (36.0-45.0); Hemoglobin 14.1 g/dL (12.0-15.0); MCH 30.3 pg (27.0-35.0); MCHC 34.1 g/dL (32.0-36.0); MCV 88.7 fL (80-100); MPV 8.0 fL (7.6-11.3); Nucleated RBC Absolute Count 0.0 (0-0); Nucleated Red Blood Cells % 0.0 % (0-0); RBC Red Blood Cell Count 4.64 M/uL (3.86-4.86); White Blood Count 11.60 thou/uL (4.3-10.9)
[2025-08-06] MEDS ORDERED: PROMETHAZINE INJ 25 MG/ML AMP ONE (20:18)
[2025-08-06 20:37] LABS: ALT/SGPT 30 U/L (13-56); Albumin 3.9 g/dL (3.4-5.0); Albumin/Globulin Ratio 1.1 (1.1-1.8); Alkaline Phosphatase 110 U/L (45-117); Anion Gap 10.6 mEq/L (5.0-15.0); BUN Blood Urea Nitrogen 9 mg/dL (7-18); Globulin 3.5 g/dL (2.3-3.5); Glucose Level 107 mg/dL (74-106); Lipase 39 U/L (13-75); Potassium 3.6 mEq/L (3.5-5.1)
[2025-08-06 20:41] LABS: AST/SGOT < 10 U/L (15-37)
--- NOTE | 2025-08-06 21:33 | ER ---
Nurse's Notes [facility] [place] Name: Christina Lopez Age: 19 yrs Sex: Female : 2005 Arrival Date: 08/06/2025 Time: 19:37 Bed 7 Private MD: Diagnosis: Nausea with vomiting, unspecified Presentation: 08/06 19:41 Chief complaint: Patient states: n/v x1 hr, became very nauseous after swimming. Chief kb4 complaint: Patient states: complains of upper abdominal pain. Coronavirus screen: At this time, the client does not indicate any symptoms associated with coronavirus-19. Ebola Screen: No symptoms or risks identified at this time. Initial Sepsis Screen: Does the patient meet any 2 criteria? HR > 90 bpm. Does the patient have a suspected source of infection? No. Patient's initial sepsis screen is negative. Risk Assessment: Do you want to hurt yourself or someone else? Patient reports no desire to harm self or others. Onset of symptoms was August 06, 2025 at 18:30. 19:41 Method Of Arrival: Ambulatory kb4 19:41 Acuity: GELY 3 kb4 Triage Assessment: 19:43 General: Appears distressed, uncomfortable, Behavior is cooperative, anxious. Pain: kb4 Complains of pain in right upper quadrant and left upper quadrant. GI: Reports upper abdominal pain, diarrhea, nausea, vomiting. PRODUCTION PAINTER: 19:43 unknown kb4 Historical: - Allergies: 19:43 No Known Allergies; kb4 - PMHx: 19:43 ADD/ADHD; Major Depressive Disorder; Anxiety; kb4 - Immunization history:: Adult Immunizations up to date. - Infectious Disease History:: Denies. - Social history:: Smoking status: Reported history of juuling and/or vaping. Screenin:16 [facility] ED Fall Risk Assessment (Adult) History of falling in the last 3 months, bm8 including since admission No falls in past 3 months (0 pts) Confusion or Disorientation No (0 pts) Intoxicated or Sedated No (0 pts) Impaired Gait No (0 pts) Mobility Assist Device Used No (0 pt) Altered Elimination No (0 pt) Score/Fall Risk Level 0 - 2 = Low Risk Oriented to surroundings, Maintained a safe environment, Educated pt \T\ family on fall prevention, incl call for assistance when getting out of bed, Assessed \T\ reinforced patient's understanding of fall precautions, Hourly rounding (assess needs \T\ fall precautionary measures) done, Used ambulatory aids as needed (educated on \T\ assisted with), Used gait belt as appropriate. Abuse screen: Denies threats or abuse. Nutritional screening: No deficits noted. Tuberculosis screening: No symptoms or risk factors identified. Assessment: 20:15 General: Appears distressed, uncomfortable, Behavior is calm, cooperative, appropriate bm8 for age. Pain: Complains of pain in abdomen Pain currently is 6 out of 10 on a pain scale. Neuro: Level of Consciousness is awake, alert, obeys commands, Oriented to person, place, time, situation, Appropriate for age. Cardiovascular: Denies chest pain, Capillary refill < 3 seconds in bilateral Patient's skin is warm and dry. Respiratory: Airway is patent Respiratory effort is even, unlabored, Respiratory pattern is regular, symmetrical, Breath sounds are clear bilaterally. GI: Abdomen is flat, non-distended, Bowel sounds present X 4 quads. Reports nausea, Pain is 6 out of 10 on a pain scale. vomiting. : No deficits noted. No signs and/or symptoms were reported regarding the genitourinary system. EENT: No deficits noted. No signs and/or symptoms were reported regarding the EENT system. Derm: No deficits noted. No signs and/or symptoms reported regarding the dermatologic system. Musculoskeletal: No deficits noted. No signs and/or symptoms reported regarding the musculoskeletal system. 20:26 Reassessment: pt continued to vomit after zofran, provider informed and new orders bm8 recieved. 21:44 Reassessment: Patient and/or family updated on plan of care and expected duration. Pain kd3 level reassessed. Patient is alert, oriented x 3, equal unlabored respirations, skin warm/dry/pink. Patient states feeling better. Patient states symptoms have improved. General: Appears in no apparent distress. Behavior is calm, cooperative. Neuro: Level of Consciousness is awake, alert, obeys commands, Oriented to person, place, time, situation, Appropriate for age. Vital Signs: 19:41 BP 149 / 116; Pulse 114; Resp 18; Temp 98; Pulse Ox 100% ; Weight 66.68 kg; Height 5 kb4 ft. 3 in. ; Pain 6/10; 21:19 BP 113 / 69; Pulse 85; Resp 17; Pulse Ox 97% on R/A; kd3 19:41 Body Mass Index 26.04 (66.68 kg, 160.02 cm) - Percentile 83.4 % kb4 19:41 Pain Scale: Adult kb4 ED Course: 19:37 Patient arrived in ED. mr 19:38 Anaid Garrett, RN is Primary Nurse. kb4 19:40 Eboni Giraldo F[facility]-C [facility]. kb 19:40 Emerson Mora MD is Attending Physician. kb 19:43 Triage completed. kb4 19:43 Arm band placed on right wrist. kb4 19:46 Anaid Garrett RN is Primary Nurse. kb4 20:10 Initial lab(s) drawn, by candlemaking laborer, sent to lab. Inserted saline lock: 20 gauge in right ts3 antecubital area, using aseptic technique. Blood collected. Flushed with 10 mL NS. 20:16 Patient has correct armband on for positive identification. Placed in gown. Bed in low bm8 position. Call light in reach. Side rails up X 1. Client placed on continuous cardiac and pulse oximetry monitoring. NIBP monitoring applied. Pulse ox on. NIBP on. Door closed. Warm blanket given. Pillow given. Verbal reassurance given. Head of bed elevated. 20:16 No provider procedures requiring assistance completed. Patient maintains SpO2 bm8 saturation greater than 95% on room air. 21:43 Provided Education on: bland foods . kd3 21:43 IV discontinued, intact, bleeding controlled, No redness/swelling at site. Pressure kd3 dressing applied. Administered Medications: 20:13 Drug: Ondansetron IVP 4 mg IVP once; over 2 minutes Route: IVP; Site: right antecubital;bm8 21:44 Follow up: Response: No adverse reaction; Nausea is decreased kd3 20:13 Drug: NS 0.9% IV 1000 ml IV at 1 bolus Per protocol; to be given as a bolus over 60 bm8 minutes Route: IV; Rate: 1 bolus; Site: right antecubital; 21:44 Follow up: IV Status: Completed infusion kd3 20:26 Drug: Promethazine IM 25 mg IM once Route: IM; Site: right deltoid; bm8 21:44 Follow up: Response: No adverse reaction; Nausea is decreased kd3 Medication: 20:16 VIS not applicable for this client. bm8 Outcome: 21:32 Discharge ordered by . sangeetha 21:43 Discharged to home ambulatory, with friend, kd3 21:43 Condition: stable 21:43 Discharge instructions given to patient, family, Instructed on discharge instructions, follow up and referral plans. medication usage, Demonstrated understanding of instructions, follow-up care, medications, Prescriptions given X 1, 21:45 Patient left the ED. kd3 Signatures: Eboni Giraldo, SIGNAL TECHNICIAN-C SIGNAL TECHNICIAN-CkSharron Gasca, Reg Reg mr VinnyAbril, RN RN kd3 Jesus Pacheco RN RN bm8 Anaid Garrett, RN RN kb4 Preeti Logan ts3 Corrections: (The following items were deleted from the chart) 19:45 19:43 PMHx: Reoccurring and Severe Psychosis Features; kb4 kb4
--- NOTE | 2025-08-06 21:33 | EDPHYS ---
Physician Documentation [facility] Name: Christina Lopez Age: 19 yrs Sex: Female : 2005 Arrival Date: 08/06/2025 Time: 19:37 Bed 7 Private MD: ED Physician Emerson Mora HPI: 08/06 21:28 This 19 yrs old Female presents to ER via Ambulatory with complaints of kb Vomiting. 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 Denies cough, congestion, dyspnea, fever, abd pain. States she has had this several times in the past. . 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 - Infectious Disease History:: Denies. - Social history:: Smoking status: Reported history of juuling and/or vaping. ROS: 21:28 Constitutional: As per HPI kb Exam: 21:28 Constitutional: This is a well developed, well nourished patient who is awake, alert, kb and in no acute distress. Head/Face: Normocephalic, atraumatic. ENT: Moist Mucous membranes Cardiovascular: Regular rate Respiratory: Respirations even and unlabored. No increased work of breathing. Talking in full sentences Abdomen/GI: Soft, non-tender. No distention Skin: Warm, dry with normal turgor. Normal color. MS/ Extremity: Pulses equal, no cyanosis. Neurovascular intact. Full, normal range of motion. Neuro: Awake and alert, GCS 15, oriented to person, place, time, and situation. Vital Signs: 19:41 BP 149 / 116; Pulse 114; Resp 18; Temp 98; Pulse Ox 100% ; Weight 66.68 kg; Height 5 kb4 ft. 3 in. ; Pain 6/10; 21:19 BP 113 / 69; Pulse 85; Resp 17; Pulse Ox 97% on R/A; kd3 19:41 Body Mass Index 26.04 (66.68 kg, 160.02 cm) - Percentile 83.4 % kb4 19:41 Pain Scale: Adult kb4 MDM: 19:40 Medical Screening Exam initiated kb 21:29 Differential diagnosis: Nonspecific abd pain, gastritis, viral gastroenteritis. Data kb reviewed: vital signs, nurses notes. Test considered but Not performed: CT: ct abd considered but pt has no abd tenderness upon exam, labs reassuring . Counseling: I had a detailed discussion with the patient and/or guardian regarding the historical points, exam findings, and any diagnostic results supporting the discharge/admit diagnosis, lab results, the need for outpatient follow up, a family practitioner, to return to the emergency department if symptoms worsen or persist or if there are any questions or concerns that arise at home. 08/06 19:49 Order name: CBC with Diff; Complete Time: 20:46 kb 08/06 19:49 Order name: CMP; Complete Time: 20:42 kb 08/06 19:49 Order name: Lipase; Complete Time: 20:42 kb 08/06 19:49 Order name: IV Saline Lock; Complete Time: 20:10 kb 08/06 19:49 Order name: Labs collected and sent; Complete Time: 20:10 kb Administered Medications: 20:13 Drug: Ondansetron IVP 4 mg IVP once; over 2 minutes Route: IVP; Site: right antecubital;bm8 21:44 Follow up: Response: No adverse reaction; Nausea is decreased kd3 20:13 Drug: NS 0.9% IV 1000 ml IV at 1 bolus Per protocol; to be given as a bolus over 60 bm8 minutes Route: IV; Rate: 1 bolus; Site: right antecubital; 21:44 Follow up: IV Status: Completed infusion kd3 20:26 Drug: Promethazine IM 25 mg IM once Route: IM; Site: right deltoid; bm8 21:44 Follow up: Response: No adverse reaction; Nausea is decreased kd3 Disposition Summary: 08/06/25 21:32 Discharge Ordered Notes: Location: Home kb Condition: Stable kb Diagnosis - Nausea with vomiting, unspecified kb Followup: kb - With: Emergency Department - When: As needed - Reason: Worsening of condition Followup: kb - With: Private Physician - When: 2 - 3 days - Reason: Recheck today's complaints, Continuance of care, Re-evaluation by your physician Discharge Instructions: - Discharge Summary Sheet kb - Nausea and Vomiting, Adult, [id number] kb Forms: - Medication Reconciliation Form kb - Antibiotic Education kb - Prescription Opioid Use kb - Patient Portal Instructions kb - Leadership Thank You Letter kb Prescriptions: - ondansetron 4 mg Oral Tablet,disintegrating - take 1 tablet ORAL route every 6 hours as needed for nausea and vomiting; 12 kb tablet; Refills: 0, Product Selection Permitted Signatures: Dispatcher [employer] EDKY Eboni Giraldo, Jesus Abreu RN RN bm8 Anaid Garrett RN RN kb4 Abril Casillas RN kd3 Corrections: (The following items were deleted from the chart) 19:45 19:43 PMHx: Reoccurring and Severe Psychosis Features; kb4 kb4
[2025-08-06 22:31] VITALS: TEMP 98
[2025-08-06 22:32] VITALS: BP 113/69; O2SAT 97
== END 2025-08-06 21:45 | disposition home or self-care (01) ==
LOC: ER 19:37
DX: R11.2 Nausea with vomiting, unspecified (principal)
CPT/HCPCS: 96361; 85025; 36415; 83690; 80053; 96372; 96374; 99284; J2550; J2405; J7030

== ENCOUNTER 2025-09-06 06:48 | Emergency (ER) | payer OTHER ==
--- NOTE | 2025-09-06 07:26 | EDPHYS ---
Physician Documentation [facility] Name: Christina Lopez Age: 20 yrs Sex: Female : 2005 Arrival Date: 09/06/2025 Time: 06:48 Bed 20 Private MD: ED Physician Zhao Trevino HPI: 09/06 07:23 This 20 yrs old Female presents to ER via Ambulatory with complaints of sp3 Nausea/Vomiting, Abdominal Pain. 07:23 20-year-old female with history of ADHD anxiety and depression presents with epigastric sp3 pain. Patient has had multiple visits for similar symptoms and has had negative workups every time including multiple CT scans of the abdomen pelvis and normal blood work. Patient presents for recurrent mild epigastric pain and nausea. She denies any blood in her emesis, lower abdominal pain, back pain, syncope, near syncope, melena, or any other signs or symptoms on ROS at this time.. 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 - Infectious Disease History:: Denies. - Social history:: Smoking status: Reported history of juuling and/or vaping. ROS: 07:23 Constitutional: Negative for fever, chills, and weight loss, Eyes: Negative for injury, sp3 pain, redness, and discharge, ENT: Negative for injury, pain, and discharge, Neck: Negative for injury, pain, and swelling, Cardiovascular: Negative for chest pain, palpitations, and edema, Respiratory: Negative for shortness of breath, cough, wheezing, and pleuritic chest pain, Back: Negative for injury and pain, MS/Extremity: Negative for injury and deformity, Skin: Negative for injury, rash, and discoloration, Neuro: Negative for headache, weakness, numbness, tingling, and seizure, Psych: Negative for depression, anxiety, suicide ideation, homicidal ideation, and hallucinations, Allergy/Immunology: Negative for hives, rash, and allergies, Endocrine: Negative for neck swelling, polydipsia, polyuria, polyphagia, and marked weight changes, Hematologic/Lymphatic: Negative for swollen nodes, abnormal bleeding, and unusual bruising, 07:23 All other systems are negative, Exam: 07:24 Constitutional: This is a well developed, well nourished patient who is awake, alert, sp3 and in no acute distress. Head/Face: Normocephalic, atraumatic. Eyes: Pupils equal round and reactive to light, extra-ocular motions intact. Lids and lashes normal. Conjunctiva and sclera are non-icteric and not injected. Cornea within normal limits. Periorbital areas with no swelling, redness, or edema. Neck: Trachea midline, no thyromegaly or masses palpated, and no cervical lymphadenopathy. Supple, full range of motion without nuchal rigidity, or vertebral point tenderness. No Meningismus. Chest/axilla: Normal chest wall appearance and motion. Nontender with no deformity. No lesions are appreciated. Cardiovascular: Regular rate and rhythm with a normal S1 and S2. No gallops, murmurs, or rubs. Normal PMI, no JVD. No pulse deficits. Respiratory: Lungs have equal breath sounds bilaterally, clear to auscultation and percussion. No rales, rhonchi or wheezes noted. No increased work of breathing, no retractions or nasal flaring. Abdomen/GI: Soft, non-tender, with normal bowel sounds. No distension or tympany. No guarding or rebound. No evidence of tenderness throughout. Back: No spinal tenderness. No costovertebral tenderness. Full range of motion. Skin: Warm, dry with normal turgor. Normal color with no rashes, no lesions, and no evidence of cellulitis. MS/ Extremity: Pulses equal, no cyanosis. Neurovascular intact. Full, normal range of motion. Neuro: Awake and alert, GCS 15, oriented to person, place, time, and situation. Cranial nerves II-XII grossly intact. Motor strength 5/5 in all extremities. Sensory grossly intact. Cerebellar exam normal. Normal gait. Psych: Awake, alert, with orientation to person, place and time. Behavior, mood, and affect are within normal limits. 07:24 Abdomen/GI: No abdominal pain currently. Vital signs are normal. There is no active emesis. Patient is resting comfortably, laughing, joking and talking with significant other as well as with staff., Vital Signs: 07:07 BP 100 / 74; Pulse 86; Resp 17; Temp 97.9; Pulse Ox 99% ; Weight 67.13 kg; Height 5 ft. ap3 2 in. ; Pain 11/17; 07:07 Body Mass Index 27.07 (67.13 kg, 157.48 cm) - Percentile 87.0 % ap3 07:07 Pain Scale: Adult ap3 MDM: 07:05 Medical Screening Exam initiated sp3 07:24 Data reviewed: vital signs, nurses notes, old medical records. ED course: 20-year-old sp3 female now with resolved epigastric pain and nausea. I have counseled her on the necessity for endoscopy and will refer her to a GI specialist. Clinically have ruled out ruptured viscus, biliary pathology, pancreatitis, appendicitis, surgical abdomen, or any other critical process. LMP is less than 4 weeks. 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 We will safely discharge her home on ondansetron ODT and follow-up with GI.. Administered Medications: No medications were administered Disposition Summary: 09/06/25 07:26 Discharge Ordered Notes: Location: Home sp3 Condition: Stable sp3 Diagnosis - Nausea, resolved epigastric pain sp3 Followup: sp3 - With: Melquiades Chowdhury MD - When: Upon discharge from the Emergency Department - Reason: Recheck today's complaints Discharge Instructions: - Discharge Summary Sheet sp3 - Nausea and Vomiting, Adult sp3 Forms: - Work release form ss - Family Work Release ss - Medication Reconciliation Form sp3 - Antibiotic Education sp3 - Prescription Opioid Use sp3 - Patient Portal Instructions sp3 - Leadership Thank You Letter sp3 Prescriptions: - ondansetron 4 mg Oral Tablet,disintegrating - take 1 tablet ORAL route every 12 hours as needed for nausea and vomiting; 20 sp3 tablet; Refills: 0, Product Selection Permitted Signatures: Macrina Omer RN RN ap3 Zhao Trevino MD MD sp3
--- NOTE | 2025-09-06 07:26 | ER ---
Nurse's Notes [facility] Name: Christina Lopez Age: 20 yrs Sex: Female : 2005 Arrival Date: 09/06/2025 Time: 06:48 Bed 20 Private MD: Diagnosis: Nausea, resolved epigastric pain Presentation: 09/06 07:07 Chief complaint: Patient states: she has been having intermittent nausea, vomiting and ap3 gagging for a few months and she reports "when it gets real bad I come to the ER when it gets bad. but it is better right now, my throat is just a little sore from the gagging." Patient currently rates her pain as a 1/10 on the pain scale, but states it is a 9/10 at it's worse. Coronavirus screen: At this time, the client does not indicate any symptoms associated with coronavirus-19. Ebola Screen: No symptoms or risks identified at this time. Initial Sepsis Screen: Does the patient meet any 2 criteria? No. Patient's initial sepsis screen is negative. Does the patient have a suspected source of infection? No. Patient's initial sepsis screen is negative. Risk Assessment: Do you want to hurt yourself or someone else? Patient reports no desire to harm self or others. Onset of symptoms is unknown. 07:07 Method Of Arrival: Ambulatory ap3 07:07 Acuity: GELY 3 ap3 Triage Assessment: 07:09 General: Appears in no apparent distress. Behavior is calm, cooperative, appropriate ap3 for age. Pain: Complains of pain in throat Pain currently is 1 out of 10 on a pain scale. Neuro: Level of Consciousness is awake, alert, obeys commands, Oriented to person, place, time, situation, Appropriate for age Gait is steady, Speech is normal. Cardiovascular: Patient's skin is warm and dry. Respiratory: Airway is patent Respiratory effort is even, unlabored, Respiratory pattern is regular, symmetrical. GI: Reports indigestion, nausea, vomiting. 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 - Infectious Disease History:: Denies. - Social history:: Smoking status: Reported history of juuling and/or vaping. Screenin:10 [facility] ED Fall Risk Assessment (Adult) History of falling in the last 3 months, ap3 including since admission No falls in past 3 months (0 pts) Confusion or Disorientation No (0 pts) Intoxicated or Sedated No (0 pts) Impaired Gait No (0 pts) Mobility Assist Device Used No (0 pt) Altered Elimination No (0 pt) Score/Fall Risk Level 0 - 2 = Low Risk Oriented to surroundings, Maintained a safe environment, Educated pt \\T\\ family on fall prevention, incl call for assistance when getting out of bed, Assessed \\T\\ reinforced patient's understanding of fall precautions, Hourly rounding (assess needs \\T\\ fall precautionary measures) done, Used ambulatory aids as needed (educated on \\T\\ assisted with). Abuse screen: Denies threats or abuse. Nutritional screening: No deficits noted. Tuberculosis screening: No symptoms or risk factors identified. Vital Signs: 07:07 BP 100 / 74; Pulse 86; Resp 17; Temp 97.9; Pulse Ox 99% ; Weight 67.13 kg; Height 5 ft. ap3 2 in. ; Pain 1/10; 07:07 Body Mass Index 27.07 (67.13 kg, 157.48 cm) - Percentile 87.0 % ap3 07:07 Pain Scale: Adult ap3 ED Course: 06:51 Patient arrived in ED. gm2 07:05 Zhao Trevino MD is Attending Physician. sp3 07:06 Macrina Omer, RN is Primary Nurse. ap3 07:09 Triage completed. ap3 07:10 Arm band placed on right wrist. ap3 07:11 Patient has correct armband on for positive identification. Bed in low position. Call ap3 light in reach. Side rails up X 1. Adult w/ patient. Provided Education on: call light education . Pulse ox on. NIBP on. Door closed. Noise minimized. 07:25 Melquiades Chowdhury MD is Referral Physician. sp3 07:40 No provider procedures requiring assistance completed. Patient did not have IV access ap3 during this emergency room visit. Administered Medications: No medications were administered Medication: 07:40 VIS not applicable for this client. ap3 Outcome: 07:26 Discharge ordered by . sp3 07:40 Discharged to home ambulatory, ap3 07:40 Condition: good 07:40 Discharge instructions given to patient, Instructed on discharge instructions, follow up and referral plans. medication usage, Demonstrated understanding of instructions, follow-up care, medications, Prescriptions given X 1:40 Patient left the ED. ap3 Signatures: Macrina Omer RN RN ap3 Zhao Trevino MD MD sp3 Gricelda Pool 2
[2025-09-06 07:47] VITALS: BP 100/74; TEMP 97.9; O2SAT 99
== END 2025-09-06 07:40 | disposition home or self-care (01) ==
LOC: ER 06:48
DX: R11.0 Nausea (principal)
CPT/HCPCS: 99283